=== PATIENT | female | born 1955 | race Caucasian/White ===

== ENCOUNTER 2021-02-12 09:05 | Outpatient (REF) | payer MEDICARE, SELFPAY ==
--- NOTE | ~2021-02-12 | MM_ITS ---
EXAMINATION: MM SCREENING DIGITAL BREAST TOMOSYNTHESIS, BILATERAL CLINICAL INFORMATION: Screening. Asymptomatic. Remote biopsy upper outer left breast 2009 ([facility]IS by report 04/22/2012). The lifetime risk of breast cancer based on the Tyrer-Cuzick Model is 40%. COMPARISON: Mammography: 09/05/2019, 03/16/2018, 02/18/2017 TECHNIQUE: Digital breast tomosynthesis is performed in both the craniocaudal and mediolateral oblique views along with computer-aided detection (CAD). Synthesized 2D images are generated from the tomosynthesis. FINDINGS: The breasts are heterogeneously dense, which may obscure small masses (ACR BI-RADS breast composition Category c). Parenchymal pattern is similar to prior exams. There is no interval mass or architectural abnormality. Oval nodule mid inferior right breast on MLO view is stable. There is biopsy clip marker again seen mid 12:00 right breast and 2 biopsy clip markers left breast anterior upper outer quadrant and anterior 3:00 position, respectively. The axilla and skin contours are unremarkable. There are some scattered benign round punctate calcifications. No significant changes. MM/MM tomosynthesis screening BI IMPRESSION: No significant changes from prior studies. ASSESSMENT: BI-RADS 2: Benign RECOMMENDATION: Routine annual mammography screening. This patient's information was entered into a reminder system with a target due date for their next mammogram.
== END 2021-02-12 09:06 | disposition home or self-care (01) ==
LOC: HO.MAMMO 09:05
PROVIDERS: Visit Provider Internal Medicine
DX: Z12.31 Encounter for screening mammogram for malignant neoplasm of breast (principal)
CPT/HCPCS: 77063; 77067

== ENCOUNTER 2021-02-15 14:42 | Outpatient (REF) | payer MEDICARE, SELFPAY | END 2021-02-15 14:43 | disposition home or self-care (01) | LOC: HO.LAB 14:42 | PROVIDERS: PCP Internal Medicine; Visit Provider Internal Medicine | DX: Z13.89 Encounter for screening for other disorder (principal) ==

== ENCOUNTER 2021-02-18 11:03 | Outpatient (REF) | payer MEDICARE, SELFPAY ==
[2021-02-18 14:25] LABS: Estimated Average Glucose 134 mg/dL; Hemoglobin A1c % 6.3 %
[2021-02-18 14:45] LABS: Creatinine Urine 139.21 mg/dL; Microalbum/Creatinine Ratio Ur 8.6 ug/mg cr
[2021-02-18 14:52] LABS: Alanine Aminotransferase 18 U/L (0-31); Albumin Level 4.2 g/dL (3.5-5.0); Alkaline Phosphatase 89 U/L (39-117); Anion Gap 11 (12-20); Aspartate Amino Transferase 15 U/L (5-31); Bilirubin Total 0.9 mg/dL (0.0-1.0); Blood Urea Nitrogen 13 mg/dL (9-16); Calcium 9.4 mg/dL (8.4-10.2); Carbon Dioxide 30 mmol/L (22-29); Chloride 106 mmol/L (96-108); Estimated Glomerular Filt Rate > 60; Glucose Random 159 mg/dL (60-115); Potassium 4.3 mmol/L (3.3-5.1); Sodium 143 mmol/L (135-145); Total Protein 6.5 g/dL (6.5-8.0)
[2021-02-19 07:56] LABS: LDL Cholesterol Direct 114 mg/dL (<100)
== END 2021-02-18 11:04 | disposition home or self-care (01) ==
LOC: HO.HMGCLDS 11:03
PROVIDERS: PCP Internal Medicine; Visit Provider Internal Medicine
DX: E11.9 Type 2 diabetes mellitus without complications (principal); E78.9 Disorder of lipoprotein metabolism, unspecified; K58.9 Irritable bowel syndrome, unspecified; G47.9 Sleep disorder, unspecified; F41.8 Other specified anxiety disorders; J45.909 Unspecified asthma, uncomplicated
CPT/HCPCS: 36415; 80053; 82043; 83036; 83721

== ENCOUNTER → 2021-03-21 09:02 | Outpatient (BNVA) | payer MEDICARE, SELFPAY | PROVIDERS: PCP Internal Medicine; Visit Provider Nurse Practitioner | DX: Z12.11 Encounter for screening for malignant neoplasm of colon (principal); K58.2 Mixed irritable bowel syndrome; R14.0 Abdominal distension (gaseous); K63.89 Other specified diseases of intestine | CPT/HCPCS: 99202 ==

== ENCOUNTER 2021-05-08 11:11 | Day surgery (SDC) | payer MEDICARE, SELFPAY ==
--- NOTE | 2021-05-07 10:16 | HO.ANESPROP2 ---
HPI - Anesthesia Eval Consult details Narrative: 66yo F for Colonoscopy PMFSH Active Problems Active Problems: All Active Problems (Updated 05/02/21 @ 13:22 by Renea Rushing) Diabetes mellitus type 2 in nonobese (Acute) Lipid disorder (Acute) Difficulty sleeping (Acute) Depression with anxiety (Acute) Asthma, mild (Acute) Colon cancer screening (Acute) Irritable bowel syndrome with both constipation and diarrhea (Acute) Abdominal bloating (Acute) Small intestinal bacterial overgrowth (Acute) Past Medical History Medical History (Updated 05/07/21 @ 10:17 by Dulce Penn) Anxiety and depression Asthma Breast calcifications Depression with anxiety IBS (irritable bowel syndrome) Insomnia Polycystic kidney disease Type II diabetes mellitus Family History Family History (Updated 03/21/21 @ 09:20 by Erica Greene) Father Liver cancer Heart problem Mother Lung cancer Brother Heart problem Diabetes Cardiovascular system problem Sister Diabetes Surgical History Surgical History (Updated 05/02/21 @ 13:22 by Renea Rushing) Hx of colonoscopy Social History Social History (Updated 03/21/21 @ 09:09 by Erica Greene) Household Members: Children Alcohol intake: current Alcohol intake frequency: a few times a month Patient Tobacco Use Status: Former Tobacco user Meds Allergies Allergy/AdvReac Type Severity Reaction Status Date / Time No Known Allergies Allergy Verified 05/02/21 13:29 Home Medications Medication Instructions Recorded Confirmed Last Taken Type dicyclomine 20 mg tablet 20 mg PO BID 02/15/21 05/02/21 Unknown History Exam Exam Date and Time: May 07, 2021 1016 Assessment and Plan Assessment Anesthesia Assessment: Chart Reviewed
[2021-05-08 11:24] VITALS: BMI 24.4
[2021-05-08 11:26] VITALS: BP 121/63; PULSE 82; RESP 18; TEMP 36.7; O2SAT 98
[2021-05-08 11:32] LABS: Glucose, Whole Blood 97 mg/dL (60-115)
--- NOTE | 2021-05-08 11:32 | MHC.SHP ---
Pre-Procedural Eval Section A Date of Service: 05/08/21 Section B Chief Complaint: screening Relevant Family History (Specify if Yes): No Relevant Social History: None Present Medications: see Short Stay Collaborative assessment Medical History: Significant History (Anxiety and depression Asthma Breast calcifications Depression with anxiety IBS (irritable bowel syndrome) Insomnia Polycystic kidney disease Type II diabetes mellitu) History of Previous Operations: Relevant previous surgery/procedure and date(s) (colonoscopy) Allergies: Allergies Allergy/AdvReac Type Severity Reaction Status Date / Time No Known Allergies Allergy Verified 05/02/21 13:29 Review of Systems Sugical H&P ROS: Negative: Constitution, Cardiovascular, Respiratory, Neurological, Psychiatric, Hem-Onc, Allergic/Immunologic, Gastrointestinal, Genitourinary, Musculoskeletal, Integumentary, Endocrine and Eyes/Ears/Nose/Throat Exam Surgical H&P Exam: Normal: HEENT, Normal: Heart, Normal: Lungs, Normal: Extremities, Normal: Abdomen, Normal: Skin and Normal: Neurological Plan Diagnosis/Plan: Unchanged I have reviewed the history and physical and performed a pertinent physical examination on my patient. No changes have occurred unless specified.
--- NOTE | 2021-05-08 11:47 | PC.NURSE ---
PATIENT STATES BODY ACHES. THIS RN TOLD ANESTHESIOLOGIST WHO STATED TO RUN FLUIDS WIDE OPEN.
[2021-05-08] MEDS: Lactated Ringers 1,000 ML 100 ML IVCONT (11:56)
--- NOTE | 2021-05-08 12:45 | P.BOP_ITS ---
Brief Operative Note Date of Service: 05/08/21 Pre-op diagnosis: colon screen Post-op diagnosis: same Procedure: see op note Surgeon: Stanislaw Aguilar MD Anesthesia: MAC Was an Manager Technical Training used for this Procedure?: No Estimated blood loss (mL): 0 Condition: stable Disposition: PACU
--- NOTE | 2021-05-08 12:46 | W.PM.OPN ---
Operative Note Operative Note Date of Service: 05/08/21 Narrative: Operative Information Procedure Description: Colonoscopy COLONOSCOPY Instrument: Olympus variable stiffness pediatric scope 190L Colonoscopy Monitoring: Vital signs and clinical assessment, continuous EKG monitoring, Pulse oximetry, Carbon Dioxide monitoring and blood pressure monitoring were done throughout the procedure. Colon withdrawal time was 13 minutes. Procedure: The patient was placed in the left lateral decubitis position and pre-procedure medications were administered. After a digital rectal examination of the ano-rectum, the video colonoscope was inserted into the rectum and advanced through the colon to the cecum/TI. The colonoscope was slowly withdrawn in a retrograde panoramic fashion and the colon mucosa was carefully examined including a retroflexed view of the rectum. Findings and interventions are described below. Procedure Difficulty: moderate, lots of looping, pressure applied Findings: Terminal Ileum-normal Cecum:normal Ascending Colon: 4-5 mm sessile polyp seen on retroflexion and removed with forceps Transverse Colon -normal Descending Colon:normal Sigmoid Colon: moderate severe diverticulosis with colon thickening Rectum: Retroflexion with small internal hemorrhoids, grade I Anorectum - normal Colon preparation: [place] Bowel Preparation Scale Right colon; 2 Transverse colon: 2 Left colon; 1 (0 = Unprepared colon segment with mucosa not seen due to solid stool that cannot be cleared. 1 = Portion of mucosa of the colon segment seen, but other areas of the colon segment not well seen due to staining, residual stool and/or opaque liquid. 2 = Minor amount of residual staining, small fragments of stool and/or opaque liquid, but mucosa of colon segment seen well. 3 = Entire mucosa of colon segment seen well with no residual staining, small fragments of stool or opaque liquid) Impression and Post Procedure Diagnosis: polyp internal hemorrhoids diverticular disease Plan: High fiber diet leaflet Avoid straining at stool, epsom salts and sitz bath, anusol supps or cream Repeat Colonoscopy in 1-2 years or earlier if clinically indicated review prep next time Above findings were reviewed with the patient and relevant handouts were provided if indicated.
[2021-05-08 12:51] VITALS: BP 111/61; PULSE 79; RESP 16; TEMP 36.2; O2SAT 99
[2021-05-08 13:06] VITALS: BP 117/57; PULSE 78; RESP 16; O2SAT 99
[2021-05-08] MEDS: Acetaminophen 325 MG TABLET 650 MG PO (13:23)
== END 2021-05-08 13:44 | disposition home or self-care (01) ==
PROVIDERS: PCP Internal Medicine; Visit Provider Internal Medicine Gastroenterology
PROC: 0DJD8ZZ Inspection of Lower Intestinal Tract, Via Natural or Artificial Opening Endoscopic (ICD-10-PCS; CPT 45378; principal; 2021-05-08 12:20)
DX: Z12.11 Encounter for screening for malignant neoplasm of colon (principal); D12.2 Benign neoplasm of ascending colon; K57.30 Diverticulosis of large intestine without perforation or abscess without bleeding; K64.0 First degree hemorrhoids; K58.2 Mixed irritable bowel syndrome; K63.89 Other specified diseases of intestine; K21.9 Gastro-esophageal reflux disease without esophagitis; J45.909 Unspecified asthma, uncomplicated; F32.9 Major depressive disorder, single episode, unspecified; E11.9 Type 2 diabetes mellitus without complications; Z79.899 Other long term (current) drug therapy; Z87.891 Personal history of nicotine dependence
CPT/HCPCS: 45380; 82947; 88305

== ENCOUNTER → 2021-06-03 09:55 | Outpatient (BNVA) | payer MEDICARE, SELFPAY | PROVIDERS: PCP Internal Medicine; Visit Provider Nurse Practitioner ==

== ENCOUNTER → 2021-06-04 15:15 | Outpatient (BNVA) | payer MEDICARE, SELFPAY | PROVIDERS: Visit Provider Nurse Practitioner Family | DX: Z13.89 Encounter for screening for other disorder (principal) | CPT/HCPCS: Q3014 ==

== ENCOUNTER → 2021-07-09 15:16 | Outpatient (BNVA) | payer MEDICARE, SELFPAY | PROVIDERS: PCP Internal Medicine; Visit Provider Nurse Practitioner Family | DX: K58.2 Mixed irritable bowel syndrome (principal); R14.0 Abdominal distension (gaseous); K21.9 Gastro-esophageal reflux disease without esophagitis; D12.6 Benign neoplasm of colon, unspecified; E11.9 Type 2 diabetes mellitus without complications; Z87.891 Personal history of nicotine dependence | CPT/HCPCS: 99212 ==

== ENCOUNTER → 2021-08-13 11:23 | Outpatient (BNVA) | payer MEDICARE, SELFPAY | PROVIDERS: PCP Internal Medicine; Visit Provider Nurse Practitioner Family | DX: Z13.89 Encounter for screening for other disorder (principal) | CPT/HCPCS: Q3014 ==

== ENCOUNTER 2021-10-15 10:04 | Outpatient (REF) | payer MEDICARE, SELFPAY ==
[2021-10-15 11:51] LABS: Estimated Average Glucose 140 mg/dL; Hemoglobin A1c % 6.5 %
[2021-10-15 12:25] LABS: Alanine Aminotransferase 22 U/L (0-31); Alkaline Phosphatase 81 U/L (39-117); Anion Gap 12 (12-20); Aspartate Amino Transferase 19 U/L (5-31); Bilirubin Total 1.1 mg/dL (0.0-1.0); Blood Urea Nitrogen 11 mg/dL (9-16); Calcium 9.3 mg/dL (8.4-10.2); Carbon Dioxide 29 mmol/L (22-29); Chloride 107 mmol/L (96-108); Estimated Glomerular Filt Rate > 60; Glucose Random 137 mg/dL (60-115); Potassium 4.4 mmol/L (3.3-5.1); Sodium 144 mmol/L (135-145); Total Protein 6.4 g/dL (6.5-8.0)
== END 2021-10-15 10:05 | disposition home or self-care (01) ==
LOC: HO.HMGCLDS 10:04
PROVIDERS: PCP Internal Medicine; Visit Provider Internal Medicine
DX: E11.9 Type 2 diabetes mellitus without complications (principal); E78.9 Disorder of lipoprotein metabolism, unspecified; G47.9 Sleep disorder, unspecified; J45.909 Unspecified asthma, uncomplicated
CPT/HCPCS: 36415; 80053; 83036

== ENCOUNTER 2021-10-18 13:16 | Outpatient (REF) | payer MEDICARE, SELFPAY ==
--- NOTE | ~2021-10-18 | XR_ITS ---
EXAMINATION: XR SACRUM AND COCCYX CLINICAL INFORMATION: Lower back injury. COMPARISON: None TECHNIQUE: 3 views submitted AP and lateral imaging. FINDINGS: There is no evidence for an acute fracture. Some mild sclerotic change in the left SI joint may be degenerative in nature. Some likely degeneration of the lower lumbosacral spine. There is no ankylosis. No acute bony erosion. XR/XR sacrum coccyx min 2V IMPRESSION: No acute finding. Some degenerative changes are noted.
== END 2021-10-18 13:17 | disposition home or self-care (01) ==
LOC: HO.HMGCX 13:16
PROVIDERS: PCP Internal Medicine; Visit Provider Internal Medicine
DX: S39.92XD Unspecified injury of lower back, subsequent encounter (principal); W19.XXXD Unspecified fall, subsequent encounter
CPT/HCPCS: 72220

== ENCOUNTER 2021-11-20 10:06 | Outpatient (REF) | payer MEDICARE, SELFPAY ==
[2021-11-20 12:02] LABS: TSH reflex Free T4 2.35 uIU/mL (0.32-4.0)
[2021-11-20 12:20] LABS: Appearance Urine CLOUDY; Color Urine YELLOW; Glucose Urine UA 100 MG/DL (NEG); Leukocyte Esterase Urine TRACE (NEG); Nitrite Urine NEG (NEG); UACC Culture Trigger YES; Urine Blood NEG (NEG); Urine Ketones NEG (NEG); Urine Protein NEG (NEG-TRACE)
[2021-11-20 12:22] LABS: Folate 14.7 ng/mL (> or = 4.0); Vitamin B12 623 pg/mL (200-900)
[2021-11-20 12:51] LABS: Amorphous Sediment Urine 2+ /LPF; RBC Urine 0 /HPF (0); Squamous Epithelial Cell Urine TRACE /LPF; WBC Urine 0-2 /HPF (0-4)
[2021-11-21 15:01] LABS: Transglutaminase Ab IgG <1.0 U/mL; Transglutaminase IgA <1.0 U/mL
[2021-11-25 16:06] LABS: Vitamin D 25-OH, D2 <4 ng/mL; Vitamin D 25-OH, D3 42 ng/mL; Vitamin D 25-OH, Total 42 ng/mL (30-100)
== END 2021-11-20 10:07 | disposition home or self-care (01) ==
LOC: HO.LAB 10:06
PROVIDERS: PCP Internal Medicine; Referring Provider Internal Medicine; Visit Provider Nurse Practitioner Family
DX: K58.0 Irritable bowel syndrome with diarrhea (principal); K58.1 Irritable bowel syndrome with constipation; E55.9 Vitamin D deficiency, unspecified; K59.04 Chronic idiopathic constipation; R10.11 Right upper quadrant pain; R14.0 Abdominal distension (gaseous); R30.0 Dysuria; Z79.899 Other long term (current) drug therapy; Z87.891 Personal history of nicotine dependence; Z12.11 Encounter for screening for malignant neoplasm of colon
CPT/HCPCS: 36415; 81001; 82306; 82607; 82746; 84443; 86364; 87086; 99212

== ENCOUNTER 2022-02-15 08:58 | Outpatient (REF) | payer MEDICARE, SELFPAY ==
--- NOTE | ~2022-02-15 | MM_ITS ---
EXAMINATION: MM SCREENING DIGITAL BREAST TOMOSYNTHESIS, BILATERAL CLINICAL INFORMATION: Remote history LCIS left breast. Due for yearly. Asymptomatic. TC score 39%. COMPARISON: Mammography: 02/12/2021, 09/05/2019, 03/16/2018 TECHNIQUE: Digital breast tomosynthesis is performed in both the craniocaudal and mediolateral oblique views along with computer-aided detection (CAD). Synthesized 2D images are generated from the tomosynthesis. FINDINGS: The breasts are heterogeneously dense, which may obscure small masses (ACR BI-RADS breast composition Category c). The left breast parenchymal pattern is similar to prior studies. There is no interval mass or architectural abnormality or abnormal calcifications. Again, there are biopsy clip markers anterior upper outer left breast and mid 3:00 left breast. The bilateral axilla and skin contours are unremarkable. The right breast has biopsy clip marker mid 11:00 position. There is a chronic stable smooth mass mid 6:00 right breast. There are calcifications overlying the posterior aspect of the mass, likely benign coarse, although not well characterized on the synthesized images. Patient will be recalled for additional imaging. The remainder of the right breast shows no interval mass or developing density or architectural abnormality. MM/MM tomosynthesis screening BI IMPRESSION: Right: -Calcifications overlying posterior aspect of an otherwise stable smooth mass mid 6:00 position. Left: -No mammographic evidence of malignancy. ASSESSMENT: BI-RADS 0: Incomplete - Need Additional Imaging Evaluation RECOMMENDATION: 1. Additional views of the right breast (magnification CC, magnification ML). 2. Targeted ultrasound if warranted after review of the additional views. 3. Radiology department staff will contact the patient for additional imaging. This patient's information was entered into a reminder system with a target due date for their next mammogram.
== END 2022-02-15 08:59 | disposition home or self-care (01) ==
LOC: HO.MAMMO 08:58
PROVIDERS: PCP Internal Medicine; Visit Provider Internal Medicine
DX: Z12.31 Encounter for screening mammogram for malignant neoplasm of breast (principal)
CPT/HCPCS: 77063; 77067

== ENCOUNTER 2022-03-04 14:00 | Outpatient (REF) | payer MEDICARE, SELFPAY ==
--- NOTE | ~2022-03-04 | MM_ITS ---
EXAMINATION: MM DIAGNOSTIC DIGITAL MAMMOGRAPHY, RIGHT CLINICAL INFORMATION: Recall from screening for calcifications overlying posterior aspect of chronic stable smooth mass mid 6:00 right breast. Prior history contralateral left breast LCIS. TC score 39%. COMPARISON: Mammography: 02/15/2022, 02/12/2021, 09/05/2019, 03/16/2018, 02/18/2017 TECHNIQUE: Digital mammography is performed in the following views: Magnification CC, magnification ML x2. FINDINGS: The breasts are heterogeneously dense, which may obscure small masses (ACR BI-RADS breast composition Category c). There is a chronic smooth nodule mid inferior right breast similar to prior studies. There are calcifications at the periphery posterior aspect, present on prior exams. The additional magnification views show the calcifications to appear coarser, suggesting degenerating fibroadenoma. No calcifications the on the nodule. Results are discussed with the patient at time of visit. MM/MM added views RT IMPRESSION: The calcifications overlying the otherwise stable smooth nodule inferior right breast appear coarser, suggesting benign degenerating fibroadenoma. ASSESSMENT: BI-RADS 3: Probably Benign RECOMMENDATION: 1. Diagnostic right mammography in 6 months. 2. The lifetime risk of breast cancer based on the Tyrer-Cuzick Model is 39%. Additional annual adjunct screening with breast MRI may be of benefit in women with a risk score of 20% or greater. This patient's information was entered into a reminder system with a target due date for their next mammogram.
== END 2022-03-04 14:01 | disposition home or self-care (01) ==
LOC: HO.MAMMO 14:00
PROVIDERS: PCP Internal Medicine; Visit Provider Internal Medicine
DX: R92.1 Mammographic calcification found on diagnostic imaging of breast (principal); N63.15 Unspecified lump in the right breast, overlapping quadrants
CPT/HCPCS: 77065

== ENCOUNTER → 2022-03-19 09:58 | Outpatient (BNVA) | payer MEDICARE, SELFPAY | PROVIDERS: PCP Internal Medicine; Referring Provider Internal Medicine; Visit Provider Nurse Practitioner Family | DX: K58.2 Mixed irritable bowel syndrome (principal); K59.04 Chronic idiopathic constipation; R14.0 Abdominal distension (gaseous) | CPT/HCPCS: 99212 ==

== ENCOUNTER 2022-04-09 14:37 | Outpatient (REF) | payer MEDICARE, SELFPAY ==
[2022-04-09 17:06] LABS: Alanine Aminotransferase 20 U/L (0-31); Alkaline Phosphatase 111 U/L (39-117); Anion Gap 13 (12-20); Aspartate Amino Transferase 17 U/L (5-31); Bilirubin Total 0.7 mg/dL (0.0-1.0); Blood Urea Nitrogen 17 mg/dL (9-16); Calcium 9.6 mg/dL (8.4-10.2); Carbon Dioxide 27 mmol/L (22-29); Chloride 104 mmol/L (96-108); Estimated Glomerular Filt Rate > 60; Glucose Random 159 mg/dL (60-115); Potassium 4.2 mmol/L (3.3-5.1); Sodium 140 mmol/L (135-145); Total Protein 6.6 g/dL (6.5-8.0)
[2022-04-09 17:07] LABS: Estimated Average Glucose 157 mg/dL; Hemoglobin A1c % 7.1 %
== END 2022-04-09 14:38 | disposition home or self-care (01) ==
LOC: HO.HMGCLDS 14:37
PROVIDERS: PCP Internal Medicine; Visit Provider Internal Medicine
DX: E78.9 Disorder of lipoprotein metabolism, unspecified (principal); F41.1 Generalized anxiety disorder; G47.9 Sleep disorder, unspecified; J45.20 Mild intermittent asthma, uncomplicated; E11.9 Type 2 diabetes mellitus without complications
CPT/HCPCS: 36415; 80053; 83036

== ENCOUNTER 2022-06-18 15:56 | Outpatient (REF) | payer MEDICARE, SELFPAY ==
[2022-06-19 02:54] LABS: CT PCR NOT DETECTED (Not Detect.); NG PCR NOT DETECTED (Not Detect.)
[2022-06-24 06:51] LABS: HPV mRNA E6/E7 rflx Not Detected (Not Detected)
== END 2022-06-18 15:57 | disposition home or self-care (01) ==
LOC: HO.LAB 15:56
PROVIDERS: Visit Provider Advanced Practice Midwife
DX: Z01.419 Encounter for gynecological examination (general) (routine) without abnormal findings (principal); Z11.51 Encounter for screening for human papillomavirus (HPV); Z20.2 Contact with and (suspected) exposure to infections with a predominantly sexual mode of transmission
CPT/HCPCS: 87491; 87591; 87624; 88142

== ENCOUNTER → 2022-08-12 09:20 | Outpatient (BNVA) | payer MEDICARE, SELFPAY | PROVIDERS: PCP Internal Medicine; Visit Provider Advanced Practice Midwife | DX: L29.2 Pruritus vulvae (principal) | CPT/HCPCS: 99212 ==

== ENCOUNTER 2022-08-13 13:05 | Outpatient (REF) | payer MEDICARE, SELFPAY ==
[2022-08-13 14:16] LABS: MANUAL DIFF FLAG NO
[2022-08-13 14:24] LABS: Basophils Percent Auto 0.2 % (0-2); Eosinophils Absolute Auto 0.1 X10*3/uL (0.0-0.4); Eosinophils Percent Auto 1.1 % (0-4); Hematocrit 40.7 % (37.0-47.0); Hemoglobin 13.6 g/dl (12.0-16.0); Imm Gran Abs Auto 0.02 X10*3/uL (0.00-0.03); Imm Gran Pct Auto 0.4 % (0.0-0.4); Lymphocytes Absolute Auto 1.3 X10*3/uL (1.2-4.9); Lymphocytes Percent Auto 27.5 % (20-40); Mean Corpuscular HGB Conc 33.4 g/dl (31.0-35.0); Mean Corpuscular Hemoglobin 30.1 pg (27.0-33.0); Monocytes Absolute Auto 0.4 X10*3/uL (0.1-1.2); Neutrophils Absolute Auto 2.9 x10*3/uL (2.0-8.3); Neutrophils Percent Auto 61.8 % (45-73); Platelet Count 187 X10*3/uL (160-400); Red Blood Count 4.52 X10*6/uL (4.20-5.50); Red Cell Distribution Width 12.5 % (11.0-16.0); White Blood Count 4.7 X10*3/uL (4.8-10.8)
[2022-08-13 14:32] LABS: Estimated Average Glucose 140 mg/dL; Hemoglobin A1c % 6.5 %
[2022-08-13 14:49] LABS: Alanine Aminotransferase 15 U/L (0-31); Albumin Level 4.2 g/dL (3.5-5.0); Alkaline Phosphatase 83 U/L (39-117); Anion Gap 10 (12-20); Aspartate Amino Transferase 17 U/L (5-31); Bilirubin Total 1.3 mg/dL (0.0-1.0); Blood Urea Nitrogen 14 mg/dL (9-16); Calcium 9.2 mg/dL (8.4-10.2); Carbon Dioxide 29 mmol/L (22-29); Chloride 106 mmol/L (96-108); Estimated Glomerular Filt Rate > 60; Glucose Random 135 mg/dL (60-115); Potassium 4.3 mmol/L (3.3-5.1); Sodium 141 mmol/L (135-145); Total Protein 6.4 g/dL (6.5-8.0)
[2022-08-13 15:10] LABS: TSH reflex Free T4 1.29 uIU/mL (0.32-4.0)
[2022-08-13 15:14] LABS: Vitamin B12 583 pg/mL (200-900)
[2022-08-14 13:51] LABS: LDL Cholesterol Direct 108 mg/dL (<100)
== END 2022-08-13 13:06 | disposition home or self-care (01) ==
LOC: HO.HMGCLDS 13:05
PROVIDERS: PCP Internal Medicine; Visit Provider Internal Medicine
DX: E11.9 Type 2 diabetes mellitus without complications (principal); E78.9 Disorder of lipoprotein metabolism, unspecified; F33.0 Major depressive disorder, recurrent, mild; F41.1 Generalized anxiety disorder; G47.9 Sleep disorder, unspecified; J45.40 Moderate persistent asthma, uncomplicated; R29.6 Repeated falls
CPT/HCPCS: 36415; 80053; 82607; 83036; 83721; 84443; 85025

== ENCOUNTER 2022-09-05 13:03 | Outpatient (REF) | payer MEDICARE, SELFPAY ==
--- NOTE | ~2022-09-05 | MM_ITS ---
EXAMINATION: MM DIAGNOSTIC DIGITAL BREAST TOMOSYNTHESIS CLINICAL INFORMATION: Six-month follow-up calcifications The lifetime risk of breast cancer based on the Tyrer-Cuzick Model is 48.7%. Additional annual screening with breast MRI may be of benefit in women with a score of 20% or greater. COMPARISON: Mammography: 03/04/2022 and studies dating back to 04/22/2012. TECHNIQUE: Digital breast tomosynthesis is performed in both the craniocaudal and mediolateral oblique views along with computer-aided detection (CAD). Synthesized 2D images are generated from the tomosynthesis. Spot magnification views of the right breast in craniocaudal and 90 degree mediolateral views also performed. FINDINGS: The breasts are extremely dense, which lowers the sensitivity of mammography (ACR BI-RADS breast composition Category d). Grouping of calcifications about the inferior lateral aspect of the right breast are again seen. There is still multiple fine calcifications present without coalescing into a more amorphous collection. Continue to recommend 6 month follow up right breast mammogram with magnification views at that time. Results are provided to the patient at time of visit by the technologist. MM/MM tomosynthesis diagnostic RT IMPRESSION: No significant change from study of 03/04/2022. Recommend diagnostic bilateral study in 6 months including spot magnification views of the right breast for calcifications. ASSESSMENT: BI-RADS 3: Probably Benign. RECOMMENDATION: Diagnostic mammography in 6 months. This patient's information was entered into a reminder system with a target due date for their next mammogram.
== END 2022-09-05 13:04 | disposition home or self-care (01) ==
LOC: HO.MAMMO 13:03
PROVIDERS: PCP Internal Medicine; Visit Provider Internal Medicine
DX: R92.1 Mammographic calcification found on diagnostic imaging of breast (principal)
CPT/HCPCS: 77061; 77065

== ENCOUNTER → 2022-12-24 13:33 | Outpatient (BNVA) | payer MEDICARE, SELFPAY | PROVIDERS: PCP Internal Medicine; Visit Provider Nurse Practitioner Family | DX: R29.6 Repeated falls (principal); M54.2 Cervicalgia; M54.50 Low back pain, unspecified; G25.81 Restless legs syndrome | CPT/HCPCS: 99202 ==

== ENCOUNTER 2023-01-23 12:53 | Outpatient (REF) | payer MEDICARE, SELFPAY ==
--- NOTE | ~2023-01-23 | MR_ITS ---
EXAMINATION: MR BRAIN WITHOUT CONTRAST MR CERVICAL SPINE WITHOUT CONTRAST CLINICAL INDICATION Repeated falls and neck pain. COMPARISON: There are no prior studies available for comparison. TECHNIQUE: MRI scans of the brain and cervical spine were obtained using routine sequences without contrast. FINDINGS: MRI Brain: No diffusion abnormalities are identified to suggest an acute or subacute infarct. No mass effect or midline shift is seen. The ventricles and sulci are slightly commensurately prominent consistent with diffuse volume loss. There is a moderate cavum velum interpositum. There are a few scattered foci of hyperintense T2 and FLAIR signal in the periventricular and subcortical white matter, which are most consistent with mild chronic microvascular ischemic changes. No extra-axial fluid collections are seen. The brainstem and cerebellum are normal. No pathologic magnetic susceptibility artifact is identified on the gradient refocused acquisition. The craniovertebral junction and marrow signal are normal. There is a partially empty sella. The major intracranial flow-voids at the level of the [place] are preserved. The dural venous sinus flow-voids are maintained. The mastoid air cells are well-aerated. There is mild mucoperiosteal thickening in the ethmoid sinuses. MRI Cervical Spine: VERTEBRAL BODIES AND PARASPINAL SOFT TISSUES: There is mild straightening of the cervical lordosis. There is narrowing of intervertebral disc height with loss of signal at multiple levels, most severe at C5-C6. The vertebral bodies have normal height and contour, and no fractures are demonstrated. Overall, marrow signal is homogenous. The regional soft tissues are unremarkable. CERVICOMEDULLARY JUNCTION AND VISUALIZED POSTERIOR FOSSA: There is a partially empty sella. The craniocervical and posterior fossa structures are normal. Accounting for artifact, spinal cord signal appears normal. SPINAL LEVELS: C2-C3: The facet joints appear normal bilaterally. Posterior disc contour is normal. There is no spinal cord compression or central stenosis. The neural foramina are patent bilaterally. C3-C4: The facet joints appear normal. There is a shallow posterior soft disc protrusion with minimal distortion of the ventral thecal sac. There is no cord compression or central stenosis. There is a small right uncovertebral osteophyte with mild right foraminal narrowing. C4-C5: The facet joints appear normal. There is a shallow posterior disc protrusion without cord compression or central stenosis. The neural foramina are patent bilaterally. C5-C6: The facet joints appear normal. There is a central and left-sided disc protrusion which mildly distorts the ventral thecal sac on the left, but there is no cord compression or central stenosis. There is a prominent left-sided uncovertebral osteophyte, and there is moderate to severe left foraminal narrowing. C6-C7: The facet joints appear normal bilaterally. Posterior disc contour is normal. There is no spinal cord compression or central stenosis. The neural foramina are patent bilaterally. C7-T1: The facet joints appear normal bilaterally. Posterior disc contour is normal. There is no spinal cord compression or central stenosis. The neural foramina are patent bilaterally. MR/MR cervical spine wo con IMPRESSION: MRI brain: 1. There are no acute bleeds or territorial infarcts. No masses are demonstrated. 2. There are chronic microvascular ischemic changes and there is diffuse volume loss. MRI cervical spine: 1. At C5-C6 there is a central and left-sided disc protrusion and there is a left-sided uncovertebral osteophyte. There is moderate to severe left foraminal narrowing. 2. At C3-C4 there is a shallow posterior disc protrusion without cord compression or central stenosis. There is mild right foraminal narrowing. 3. There is no spinal cord compression or central stenosis. Spinal cord signal appears normal.
== END 2023-01-23 12:54 | disposition home or self-care (01) ==
LOC: HO.MRI 12:53
PROVIDERS: PCP Internal Medicine; Visit Provider Nurse Practitioner Family
DX: M54.2 Cervicalgia (principal); M54.50 Low back pain, unspecified; R29.6 Repeated falls
CPT/HCPCS: 70551; 72141

== ENCOUNTER 2023-02-25 10:38 | Outpatient (REF) | payer MEDICARE, SELFPAY ==
[2023-02-25 11:49] LABS: Estimated Average Glucose 137 mg/dL; Hemoglobin A1c % 6.4 %
[2023-02-25 12:19] LABS: Creatinine Urine 185.33 mg/dL; Microalbum/Creatinine Ratio Ur 8.6 ug/mg cr
[2023-02-25 12:25] LABS: Alanine Aminotransferase 14 U/L (0-31); Albumin Level 4.1 g/dL (3.5-5.0); Alkaline Phosphatase 75 U/L (39-117); Anion Gap 12 (12-20); Aspartate Amino Transferase 14 U/L (5-31); Bilirubin Total 1.4 mg/dL (0.0-1.0); Blood Urea Nitrogen 18 mg/dL (9-16); Calcium 9.3 mg/dL (8.4-10.2); Carbon Dioxide 28 mmol/L (22-29); Chloride 107 mmol/L (96-108); Estimated Glomerular Filt Rate 55; Glucose Random 158 mg/dL (60-115); Potassium 5.1 mmol/L (3.3-5.1); Sodium 142 mmol/L (135-145)
== END 2023-02-25 10:39 | disposition home or self-care (01) ==
LOC: HO.HMGCLDS 10:38
PROVIDERS: PCP Internal Medicine; Visit Provider Internal Medicine
DX: E11.9 Type 2 diabetes mellitus without complications (principal); E78.9 Disorder of lipoprotein metabolism, unspecified; F33.0 Major depressive disorder, recurrent, mild; F41.1 Generalized anxiety disorder; G47.9 Sleep disorder, unspecified; J45.40 Moderate persistent asthma, uncomplicated; R82.90 Unspecified abnormal findings in urine
CPT/HCPCS: 36415; 80053; 82043; 83036

== ENCOUNTER 2023-03-05 13:30 | Outpatient (REF) | payer MEDICARE, SELFPAY ==
--- NOTE | ~2023-03-05 | MM_ITS ---
EXAMINATION: MM DIAGNOSTIC DIGITAL BREAST TOMOSYNTHESIS, BILATERAL CLINICAL INFORMATION: Due for yearly. Also follow-up probable benign calcifications posterior aspect chronic smooth nodule mid 6:00 right breast. TC score. Prior history remote upper outer left breast biopsy 2009 ([facility]IS by report 2011). COMPARISON: Mammography: 09/05/2022, 03/04/2022, 02/15/2022 (BI-RADS 0), 02/12/2021, 09/05/2019 TECHNIQUE: Digital breast tomosynthesis is performed in both the craniocaudal and mediolateral oblique views along with computer-aided detection (CAD). Synthesized 2D images are generated from the tomosynthesis. Additional magnification views are obtained: Right CC, right MLO, left CC, left ML x2. FINDINGS: The breasts are heterogeneously dense, which may obscure small masses (ACR BI-RADS breast composition Category c). There is no significant mass and no developing density or interval architectural abnormality. Old biopsy clip marker again noted mid 12:00 right breast and 2 biopsy clip markers upper outer and central outer left breast. The axilla and skin contours are unremarkable. There is chronic smooth oval mass mid 6:00 right breast. The overlying calcifications posterior aspect of the mass appears similar to prior diagnostic exam and will be reassessed again in 6 months. The left breast has subtle new calcifications mid outer breast. There are some lucent centered types on the CC magnification view suggesting probable benign calcification. They will be reassessed again in 6 months. Other scattered punctate calcifications left breast are similar to prior exams. Results are discussed with the patient at time of visit. MM/MM tomosynthesis diagnostic BI IMPRESSION: Right: No significant changes right breast calcifications for 1 year follow-up. Left: Probable benign calcifications mid outer breast, new finding. ASSESSMENT: BI-RADS 3: Probably Benign RECOMMENDATION: -Bilateral diagnostic mammography in 6 months to include bilateral magnification views. -Consider additional adjunct screening with breast MRI as clinical risk factors warrant. This patient's information was entered into a reminder system with a target due date for their next mammogram.
== END 2023-03-05 13:31 | disposition home or self-care (01) ==
LOC: HO.MAMMO 13:30
PROVIDERS: PCP Internal Medicine; Visit Provider Internal Medicine
DX: R92.1 Mammographic calcification found on diagnostic imaging of breast (principal)
CPT/HCPCS: 77062; 77066

== ENCOUNTER → 2023-03-18 10:24 | Outpatient (BNVA) | payer MEDICARE, SELFPAY | PROVIDERS: PCP Internal Medicine; Visit Provider Nurse Practitioner Family | DX: Z12.11 Encounter for screening for malignant neoplasm of colon (principal); K58.1 Irritable bowel syndrome with constipation; K59.04 Chronic idiopathic constipation; D36.9 Benign neoplasm, unspecified site | CPT/HCPCS: 99212 ==

== ENCOUNTER → 2023-03-26 13:06 | Outpatient (BNVA) | payer MEDICARE, SELFPAY | PROVIDERS: PCP Internal Medicine; Visit Provider Nurse Practitioner Family | DX: R25.1 Tremor, unspecified (principal); R26.9 Unspecified abnormalities of gait and mobility; G25.81 Restless legs syndrome | CPT/HCPCS: 99212 ==

== ENCOUNTER 2023-04-20 13:00 | Outpatient (RCR) | payer MEDICARE, SELFPAY ==
--- NOTE | 2023-04-01 15:00 | MHC.PT.EP ---
[facility] [place] Office [place] Office [place] Office [address] [place] [address] [phone] F: [phone] F: [phone] F: [phone] F: [phone] Physical Therapy Plan of Care Date of Evaluation: Date of Surgery: Diagnosis: This is a 67 yo female presenting to skilled PT with a script for repeated falls. Assessment: This is a 67 yo female presenting to skilled PT with a script for repeated falls. Patient reporting that she tends to tip over which has been ongoing for a few years go. She also reports being light-headed and feeling off on occasion. She reports her most recent fall was last week when she was checking on some of her gardening beds and she fell forward. This year she accounts for 3-4 falls which are all random and do not have patterns. She does however report catching her feet occasionally and in general has LB weakness. Denies fractures or aches and pain that is significant (does have low back pain that she does not believe is related to her falls). Assessment reveals pain that ranges about a 4/10 in her back. Patient demos decreased lumbar ROM, strength of B LE, core and back. She is a falls risk per screening of Sima and DGI tests. She had some dizziness with rolling on the mat and will be screened for vestibular involvement next session. Based on functional limitations, impaired QOL and pain tolerance patient is a good candidate for skilled PT 2x/wk for 4wks. Plan is to do an HEP for LB strengthening along with a screen on vertigo next session and then a balance HEP the next session (due to co-pay). Frequency and Duration: The patient will be seen 2x/wk for 4wks Short Term Goals: I in HEP in 4wks Understand safety with transfers, squatting and lifting and stairs in 4wks Senior Living Goals: NA Treatment Plan: Modalities to reduce pain, spasms and effusion. Manual therapy to restore motion and function. Therapeutic exercise to improve strength and flexibility. Neuromuscular re-education for posture and balance. Therapeutic activities to return to functional activities of daily living. Electronically signed by: Latonia Rivera PT Please sign and return to therapist. Thank you for your referral.
--- NOTE | 2023-05-22 09:54 | MHC.PT.DC ---
[facility] [place] Office [place] Office [place] Office [address] [place] Mcintosh [address] [phone] F: [phone] F: [phone] F: [phone] F: [phone] Physical Therapy Discharge Report Diagnosis: This is a 67 yo female presenting to skilled PT with a script for repeated falls. Date of Surgery: Date of Evaluation: 04/01/23 Date of Discharge: 05/22/23 Treatments to Date: 3 Cancellations to Date: 0 No Shows to Date: 0 Discharge Status: Achieved Goals Improved Function Independent with HEP Patient Elected to Stop Discharge Summary: Reviewed HEP, educated on endurance activities like the recumbent bike. Added some standing ther-ex for balance and strength, needs mod/max cues for proper activation of hip abductor muscles. Educated on length of time in order to grow muscle and improve strength. She will work on her HEP on her own and I will keep her chart open for 30 days. DC'd to HEP Electronically signed by: Latonia Rivera, PT Please sign and return to therapist. Thank you for your referral.
== END 2023-05-22 09:54 | disposition home or self-care (01) ==
LOC: HO.PTCHIC 13:00
PROVIDERS: PCP Internal Medicine; Visit Provider Nurse Practitioner Family
DX: R29.6 Repeated falls (principal); R53.1 Weakness
CPT/HCPCS: 97110; 97112; 97162

== ENCOUNTER 2023-04-23 11:36 | Day surgery (SDC) | payer MEDICARE, SELFPAY ==
--- NOTE | 2023-04-22 10:43 | P.CONAN_ITS ---
Documented by User: Dulce Penn NP 04/22/23 10:46 HPI - Anesthesia Eval Consult details Narrative: 68yo F for Colonoscopy Seen by neuro recently for occassional falls/off balance. No acute findings on MRI. Neuro recommends optimal BP control, electrolyte drinks in the AM, PT for gait. PMF Active Problems Active Problems: All Active Problems (Updated 03/26/23 @ 21:32 by GISELLE Spaulding) Tremor (Acute) Restless leg syndrome (Acute) Lumbago (Acute) Cervicalgia (Acute) Depression, major, recurrent, mild (Acute) Skin cancer screening (Acute) Recurrent falls (Acute) Pruritus of vulva (Acute) Encounter for routine gynecological examination (Acute) Injury of coccyx (Acute) Fall (Acute) Asthma, moderate persistent (Acute) Anxiety, generalized (Acute) Diet-controlled diabetes mellitus (Acute) Tubular adenoma (Acute) Diabetes mellitus type 2 in nonobese (Acute) Lipid disorder (Acute) Difficulty sleeping (Acute) Asthma, mild (Acute) Colon cancer screening (Acute) Irritable bowel syndrome with both constipation and diarrhea (Acute) Abdominal bloating (Acute) Small intestinal bacterial overgrowth (Acute) Past Medical History Medical History Anxiety and depression Asthma Breast calcifications Depression with anxiety IBS (irritable bowel syndrome) Insomnia Polycystic kidney disease Tubular adenoma Type II diabetes mellitus Family History Family History Father Liver cancer Heart problem Mother Lung cancer Brother Heart problem Diabetes Cardiovascular system problem Substance use disorder Mental health disorder Sister Diabetes Substance use disorder Brother Substance use disorder Surgical History Surgical History Hx of colonoscopy Hx of colonoscopy Social History Social History (Updated 03/26/23 @ 13:14 by Anitra Anna CMA) Household Members: Children Housing: Apartment Alcohol intake: current Alcohol intake frequency: a few times a month Patient Tobacco Use Status: Former Tobacco user Years Smoked: 15 yrs e-Cigarette/Vaping Use: Never Used Second Hand Smoke Exposure: No Advance Directives: No Advance Directives Information Provided: Yes service: No Current occupational status: retired Sexual orientation: Straight/Heterosexual Gender identity: Female Cognitive needs: No Hearing needs: No Vision needs: Yes Meds Allergies Allergy/AdvReac Type Severity Reaction Status Date / Time No Known Allergies Allergy Verified 03/26/23 13:12 Home Medications Medication Instructions Recorded Confirmed Last Taken Type ibuprofen 200 mg tablet 200 mg PO Q6H PRN 03/26/23 03/26/23 Unknown History Exam Exam Date and Time: April 22, 2023 1043 Pertinent Lab Results Pertinent Lab Results: Laboratory Tests 08/13/22 02/25/23 13:10 10:50 WBC 4.7 L Hgb 13.6 Hct 40.7 Plt Count 187 Sodium 142 Potassium 5.1 Chloride 107 Carbon Dioxide 28 BUN 18 H Creatinine 1.00 Assessment and Plan Assessment Anesthesia Assessment: Chart Reviewed Documented by User: Neo Carias MD 04/23/23 13:02 [facility] Past Medical History Medical History Anxiety and depression Asthma Breast calcifications Depression with anxiety IBS (irritable bowel syndrome) Insomnia Polycystic kidney disease Tubular adenoma Type II diabetes mellitus Family History Family History Father Liver cancer Heart problem Mother Lung cancer Brother Heart problem Diabetes Cardiovascular system problem Substance use disorder Mental health disorder Sister Diabetes Substance use disorder Brother Substance use disorder Family history of problems with anesthesia: No Surgical History Surgical History Hx of colonoscopy Hx of colonoscopy History of Problems with Anesthesia: No Social History Social History (Updated 03/26/23 @ 13:14 by Anitra Anna CMA) Household Members: Children Housing: Apartment Alcohol intake: current Alcohol intake frequency: a few times a month Patient Tobacco Use Status: Former Tobacco user Years Smoked: 15 yrs e-Cigarette/Vaping Use: Never Used Second Hand Smoke Exposure: No Advance Directives: No Advance Directives Information Provided: Yes service: No Current occupational status: retired Sexual orientation: Straight/Heterosexual Gender identity: Female Cognitive needs: No Hearing needs: No Vision needs: Yes Meds Allergies Allergy/AdvReac Type Severity Reaction Status Date / Time No Known Allergies Allergy Verified 03/26/23 13:12 Home Medications Medication Instructions Recorded Confirmed Last Taken Type ibuprofen 200 mg tablet 200 mg PO Q6H PRN 03/26/23 03/26/23 Unknown History Exam Airway Mallampati Class: II TM Dist: >3cm Neck ROM: Full Loose/Missing/Broken Teeth: No Assessment and Plan Assessment Anesthesia Assessment: Anesthesia Plan Discussed Final Anesthetic Review Family History of Problems with Anesthesia: No History of Problems with Anesthesia: No NPO: Yes ASA Class: III Final Preanesthetic Review: No Changes in Pt Med Stat, Meds/Allgs Chart Reviewed, Consent Obtained/Reviewed and Anes Risks/Benef Reviewed Patient Risk: Intermediate Procedure Risk: Low Anesthetic Plan Anesthetic Plan: MAC: Disposition: Standard PACU
--- NOTE | 2023-04-23 11:52 | P.HPSUR_ITS ---
Pre-Procedural Eval Section A Date of Service: 04/23/23 Section B Chief Complaint: constipation Relevant Family History (Specify if Yes): No Relevant Social History: None Present Medications: see Short Stay Collaborative assessment Medical History: Significant History (Anxiety and depression Asthma Breast calcifications Depression with anxiety IBS (irritable bowel syndrome) Insomnia Polycystic kidney disease Tubular adenoma Type II diabetes mellitus) History of Previous Operations: Relevant previous surgery/procedure and date(s) (Hx of colonoscopy) Allergies: Allergies Allergy/AdvReac Type Severity Reaction Status Date / Time No Known Allergies Allergy Verified 03/26/23 13:12 Review of Systems Sugical H&P ROS: Negative: Constitution, Cardiovascular, Respiratory, Neurological, Psychiatric, Hem-Onc, Allergic/Immunologic, Gastrointestinal, Genitourinary, Musculoskeletal, Integumentary, Endocrine and Eyes/Ears/Nose/Throat Exam Surgical H&P Exam: Normal: HEENT, Normal: Heart, Normal: Lungs, Normal: E xtremities, Normal: Abdomen, Normal: Skin and Normal: Neurological Plan Diagnosis/Plan: Unchanged I have reviewed the history and physical and performed a pertinent physical examination on my patient. No changes have occurred unless specified. Time Spent With Patient Time: Total time managing care of this patient today ____ minutes.
[2023-04-23 12:30] LABS: Glucose, Whole Blood 123 mg/dL (60-115)
[2023-04-23] MEDS: Lactated Ringers 1,000 ML 100 ML IVCONT (12:33)
[2023-04-23] MEDS: Sodium Phosphate,Mono-Dibasic 133 ML ENEMA PR (12:33)
[2023-04-23 13:06] VITALS: BMI 24.5
[2023-04-23 13:07] VITALS: BP 119/50; PULSE 66; RESP 18; TEMP 36.6; O2SAT 98
--- NOTE | 2023-04-23 13:49 | P.OP_ITS ---
Operative Note Operative Note Date of Service: 04/23/23 Narrative: Operative Information Procedure Description: Colonoscopy Indication: screening Anesthesia: MAC COLONOSCOPY Instrument: Olympus variable stiffness pediatric scope 190L Colonoscopy Monitoring: Vital signs and clinical assessment, continuous EKG monitoring, Pulse oximetry, Carbon Dioxide monitoring and blood pressure monitoring were done throughout the procedure. Colon withdrawal time was 4 minutes. Procedure: The patient was placed in the left lateral decubitis position and pre-procedure medications were administered. After a digital rectal examination of the ano-rectum, the video colonoscope was inserted into the rectum and advanced through the colon to the cecum/TI. The colonoscope was slowly withdrawn in a retrograde panoramic fashion and the colon mucosa was carefully examined including a retroflexed view of the rectum. Findings and interventions are described below. Procedure Difficulty: difficutl due to prep and tortuous colon Findings: Terminal Ileum-not seen Cecum:normal Ascending Colon: normal Transverse Colon -normal Descending Colon:normal Sigmoid Colon: normal Rectum: Retroflexion with small internal hemorrhoids, grade I Anorectum - normal Colon preparation: [place] Bowel Preparation Scale Right colon; 1 Transverse colon: 1 Left colon; 0-1 (0 = Unprepared colon segment with mucosa not seen due to solid stool that cannot be cleared. 1 = Portion of mucosa of the colon segment seen, but other areas of the colon segment not well seen due to staining, residual stool and/or opaque liquid. 2 = Minor amount of residual staining, small fragments of stool and/or opaque liquid, but mucosa of colon segment seen well. 3 = Entire mucosa of colon segment seen well with no residual staining, small fragments of stool or opaque liquid) Impression and Post Procedure Diagnosis: poor prep internal hemorrhoids Plan: High fiber diet leaflet Avoid straining at stool, epsom salts and sitz bath, anusol supps or cream Repeat Colonoscopy in 3-6 months or earlier if clinically indicated, consider longer prep or 2 d clears if able Above findings were reviewed with the patient and relevant handouts were provided if indicated.
[2023-04-23 14:00] VITALS: BP 124/49; PULSE 88; RESP 16; TEMP 36.1; O2SAT 97
[2023-04-23 14:15] VITALS: BP 115/69; PULSE 82; RESP 16; O2SAT 96
== END 2023-04-23 14:49 | disposition home or self-care (01) ==
PROVIDERS: PCP Internal Medicine; Visit Provider Internal Medicine Gastroenterology
PROC: 0DJD8ZZ Inspection of Lower Intestinal Tract, Via Natural or Artificial Opening Endoscopic (ICD-10-PCS; CPT 45378; principal; 2023-04-23 13:20)
DX: Z12.11 Encounter for screening for malignant neoplasm of colon (principal); Z86.010 Personal history of colon polyps; K64.0 First degree hemorrhoids; K58.1 Irritable bowel syndrome with constipation; K59.04 Chronic idiopathic constipation; Q43.8 Other specified congenital malformations of intestine; J45.909 Unspecified asthma, uncomplicated; G47.00 Insomnia, unspecified; F41.8 Other specified anxiety disorders; Q61.3 Polycystic kidney, unspecified; E11.9 Type 2 diabetes mellitus without complications; Z79.899 Other long term (current) drug therapy; Z87.891 Personal history of nicotine dependence
CPT/HCPCS: G0105; 82947

== ENCOUNTER 2023-05-06 14:41 | Outpatient (AMB) | payer MEDICARE, SELFPAY ==
[2023-05-06 14:56] VITALS: BP 102/50; PULSE 67; BMI 25.0
--- NOTE | 2023-05-06 14:56 | A.OFFVIS_ITS ---
Intake Vital Signs 05/06/23 14:56 Height 5 ft Weight 127 lb 13.89 oz BMI 25.0 BP 102/50 L Blood Pressure Location Lt brachial Position Sitting Pulse 67 Intake Visit Reasons: S/P [place]; Dr. Aguilar Intake Note: Ginger presents in office as a est.patient for a post-op for colo pt got it done 04.23.23 PT CC:pt reports having side effects from the prep pt denies any other GI Issues Allergies No Known Allergies Allergy (Verified 05/06/23 14:55) HPI S/P [place]; Dr. Aguilar HPI Details LAST VISIT Colon cancer screening Discussed with patient how to do the prep. Patient currently is moving her bowels better. We will increase her dose of Linzess to 290 mcg daily. Patient verbalizes what to expect the for during and after the procedure. Good bowel prep as well as clear liquid diet discussed with patient. Patient has no cardiac or respiratory symptoms. Not on any anticoagulation medication. May proceed with the procedure. Tubular adenoma Diagnosed with tubular adenoma in 2020. Patient had suboptimal prep will need to repeat colonoscopy this year. Will schedule appointment today as soon as schedule permits IBS (irritable bowel syndrome) Symptoms of IBS with constipation. Discussed with patient the importance of drinking fluids. Patient will also start taking 290 mcg of Linzess. Continue low FODMAP diet Chronic idiopathic constipation History of chronic constipation. Will increase patient's Linzess. Patient will call us if this will be too much then she can go back to 145 mcg. Patient was also encouraged to drink fluids and increased activity to promote better bowel motility. I will see patient after the procedure, sooner on as needed basis. Patient is agreeable to this plan and verbalizes understanding of instructions. She was given the opportunity to ask questions and all questions answered. ? Thank you for allowing me to participate in her care Plan Medications New bisacodyl (Dulcolax (bisacodyl)) take 2 tabs at noon the day before your colonoscopy 10 mg (2 x 5 mg) PO ONCE 1 day 2 tabs 0RF Z12.11 polyethylene glycol 3350 (Miralax) As directed by gastroenterology department at [facility] 238 grams PO ONCE 238 grams 0RF Z12.11 linaclotide (Linzess) 290 mcg PO QAM 30 caps 4RF K59.00 Discontinued linaclotide (Linzess) Discontinued Reason: Doctor's Order 145 mcg PO DAILY 90 caps 3RF COLONOSCOPY: Findings: Terminal Ileum-not seen Cecum:normal Ascending Colon: normal Transverse Colon -normal Descending Colon:normal Sigmoid Colon:? normal Rectum: Retroflexion with small internal hemorrhoids, grade I Anorectum - normal Colon preparation: [place] Bowel Preparation Scale Right colon; 1 Transverse colon: 1 Left colon; 0-1 (0 = Unprepared colon segment with mucosa not seen due to solid stool that cannot be cleared. 1 = Portion of mucosa of the colon segment seen, but other areas of the colon segment not well seen due to staining, residual stool and/or opaque liquid. 2 = Minor amount of residual staining, small fragments of stool and/or opaque liquid, but mucosa of colon segment seen well. 3 = Entire mucosa of colon segment seen well with no residual staining, small fragments of stool or opaque liquid) Impression and Post Procedure Diagnosis: poor prep internal hemorrhoids Plan: High fiber diet leaflet Avoid straining at stool, epsom salts and sitz bath, anusol supps or cream Repeat Colonoscopy in 3-6 months or earlier if clinically indicated, consider longer prep or 2 d clears if able TODAY'S VISIT: Patient is here today for follow-up and to discuss colonoscopy results. Unfortunately patient had suboptimal prep and will need to repeat colonoscopy in 3-6 months. Patient is taking Linzess. States that she feels like she is moving her bowels better. Patient was instructed to take Linzess every day. Patient denies melena, hematochezia, unintentional weight loss or ribbon like stools. Patient denies any dyspepsia, dysphagia or odynophagia. Patient denies any GI concerning symptoms today [facility] Medical History Anxiety and depression Asthma Breast calcifications Depression with anxiety IBS (irritable bowel syndrome) Insomnia Polycystic kidney disease Tubular adenoma Type II diabetes mellitus Surgical History Hx of colonoscopy Hx of colonoscopy Family History Father Liver cancer Heart problem Mother Lung cancer Brother Heart problem Diabetes Cardiovascular system problem Substance use disorder Mental health disorder Sister Diabetes Substance use disorder Brother Substance use disorder Social History Household Members: Children Housing: Apartment Are you a primary professional healthcare representative to a significant other at home: No Do you presently have visiting nurse or other home services: No Alcohol intake: current Alcohol intake frequency: 0-2 drinks per day Patient Tobacco Use Status: Former Tobacco user Years Smoked: 15 yrs e-Cigarette/Vaping Use: Never Used Second Hand Smoke Exposure: No service: No Current occupational status: retired Sexual orientation: Straight/Heterosexual Gender identity: Female Cognitive needs: No Hearing needs: No Vision needs: Yes Review of Systems Const Denies weight gain and Denies weight loss ENT Reports no additional complaints, Denies dysphagia and Denies odynophagia Card Reports no additional complaints Resp Reports no additional complaints GI Denies abdominal pain, Denies belching, Denies melena, Denies bloating, Reports constipation, Denies dysphagia, Denies excessive flatus, Denies dyspepsia, Denies heartburn, Denies diarrhea, Denies loose stools, Denies nausea, Denies odynophagia and Denies vomiting Reports no additional complaints Musc Reports no additional complaints Neuro Reports no additional complaints Psych Reports no additional complaints Endo Reports no additional complaints Physical Exam Vital Signs: Last Vital Signs Pulse 67 05/06/23 14:56 BP 102/50 L 05/06/23 14:56 BMI result Body Mass Index 25.0 Const General: healthy appearing, no acute distress and well developed Nutritional Appearance: well nourished Orientation/consciousness: patient oriented x3 HEENT Head: Yes normal to inspection, Yes normocephalic and Yes atraumatic Face and sinus: Yes normal facial exam Mouth: Normal oral and palatal mucosa present Throat: Yes posterior oropharynx normal, Yes tonsils normal and Yes uvula midline Eyes General: appearance normal, both eyes and all related structures Neck Neck: Yes normal visual inspection, Yes full ROM and Yes trachea midline Thyroid: Thyroid normal Resp Effort & Inspection: normal respiratory effort, able to speak in complete sentences, no tracheal deviation and symmetric chest movement Auscultation: clear to auscultation bilaterally Cardio Rate: regular rate Heart sounds: S1 normal heart sound present and S2 normal heart sound present GI Inspection: Yes normal to inspection and No distended Palpation (GI): Soft to palpation, not firm, nontender and No hepatosplenomegaly present Auscultation: normal bowel sounds General: Yes no CVA tenderness Back/Spine/Pelvis Back: no CVA tenderness Skin General skin exam: elasticity normal, turgor normal and dry skin Neuro General: patient oriented x3 Psych Appearance: grossly normal Mental Status: mental status grossly normal Speech and movement: Normal speech and movement present Affect: normal affect Assessment & Plan Assessment & Plan (1) Tubular adenoma: Code(s): D36.9 - Benign neoplasm, unspecified site Plan: History of tubular adenoma in the past. Patient had poor prep this time and will need to return for colorectal screening in 3-6 months. Please book appointment with RN to go over the prep. Two days of clear liquids. Patient can take Dulcolax for 1 week before the procedure at night time and then for Dulcolax tablets the day of the procedure with MiraLax split prep at 17:00 and 22:00 (2) IBS (irritable bowel syndrome): Code(s): K58.9 - Irritable bowel syndrome without diarrhea Qualifiers: Irritable bowel syndrome type: with constipation Qualified Code(s): K58.1 - Irritable bowel syndrome with constipation Plan: Low FODMAP diet. Increase fluid intake and activity to promote better bowel motility (3) Chronic idiopathic constipation: Code(s): K59.04 - Chronic idiopathic constipation Plan: Patient reports constipation better. Continue taking Linzess and increase fluid intake and activity to promote better bowel motility. I will see patient after the procedure, sooner on as needed basis. Patient is agreeable to this plan and verbalizes understanding of instructions. She was given the opportunity to ask questions and all questions answered. Thank you for allowing me to participate in her care Coding Level of Care Code Est Pt Level 3 (07282) Diagnoses Tubular adenoma D36.9 IBS (irritable bowel syndrome) K58.1 Irritable bowel syndrome type: with constipation Chronic idiopathic constipation K59.04 Time Spent (min) 30 Comment 20 minutes spent with patient and additional 10 minutes spent reviewing her records
== END 2023-05-06 15:55 | disposition home or self-care (01) ==
PROVIDERS: Visit Provider Nurse Practitioner Family
DX: D36.9 Benign neoplasm, unspecified site (principal); K58.1 Irritable bowel syndrome with constipation; K59.04 Chronic idiopathic constipation
CPT/HCPCS: 99213

== ENCOUNTER → 2023-05-06 14:41 | Outpatient (BNVA) | payer MEDICARE, SELFPAY | PROVIDERS: Visit Provider Nurse Practitioner Family | DX: K58.1 Irritable bowel syndrome with constipation (principal); K59.04 Chronic idiopathic constipation; D36.9 Benign neoplasm, unspecified site | CPT/HCPCS: 99212 ==

== ENCOUNTER 2023-06-24 10:04 | Outpatient (AMB) | payer MEDICARE, SELFPAY ==
--- NOTE | 2023-06-24 10:07 | MHC.PC.OV ---
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 Allergies No Known Allergies Allergy (Verified 06/24/23 10:11) Medication List - Last Reconciled 06/24/23 by Any Jaffe MD ibuprofen 200 mg PO Q6H PRN lactobacillus combination no.4 (Probiotic) 1 capsule PO daily; administer with a meal 30 days linaclotide (Linzess) 290 mcg PO QAM paroxetine HCl 40 mg PO DAILY simvastatin 40 mg PO BEDTIME trazodone 50 mg PO BEDTIME PRN Tobacco use date assessed: 11/26/22 Fall risk assessment: 1 Fall in past year Last assessed Fall Risk: 06/24/23 Dental Screening Dental Screen Date: 06/24/23 Did you have a dental visit in the last 12 months?: No Did you have a dental problem in the last 6 months where you did not have access to dental care?: No Was dental information given to patient?: Yes HPI 4 month follow up DM HPI Details Patient is 68-year-old female came in today for her regular follow-up visit Patient is stressed out as she went for colonoscopy what her preparation was not appropriate She says that she has a severe constipation and currently taking lizes and still moving her bowels 2 or 3 times a week. She says she will see the nurse 2 days before the procedure to make sure that she is ready for the procedure. Diabetes mellitus: diet controlled hemoglobin A1c 6.2 today Depression:? She is on paroxetine 40 mg once a day.? She has good days and bad days, she is taking care of her sister who has had 3 strokes, and her brother is alcoholic that is causing some stress ? Sleeping difficulty: Patient is on trazodone 50 mg, medication is helping her ? Asthma:? Continue ProAir as needed Lipid disorder: continue simvastatin 40 mg. Other providers patient has seen is Dr. Jean neurology when she complained of recurrent falls MRI of brain was done no acute findings other than slight atrophy Labs are needed before visit in September when patient will come for physical exam [facility] Medical History Anxiety and depression Asthma Breast calcifications Depression with anxiety IBS (irritable bowel syndrome) Insomnia Polycystic kidney disease Tubular adenoma Type II diabetes mellitus Surgical History Hx of colonoscopy Hx of colonoscopy Family History Father Liver cancer Heart problem Mother Lung cancer Brother Heart problem Diabetes Cardiovascular system problem Substance use disorder Mental health disorder Sister Diabetes Substance use disorder Brother Substance use disorder Social History Household Members: Children Housing: Apartment Are you a primary residential child care counselor to a significant other at home: No Do you presently have visiting nurse or other home services: No Alcohol intake: current Alcohol intake frequency: 0-2 drinks per day Patient Tobacco Use Status: Former Tobacco user Years Smoked: 15 yrs e-Cigarette/Vaping Use: Never Used Second Hand Smoke Exposure: No service: No Current occupational status: retired Sexual orientation: Straight/Heterosexual Gender identity: Female Cognitive needs: No Hearing needs: No Vision needs: Yes Questionnaire PHQ-9 Over the last 2 weeks, how often have you been bothered by any of the following problems? 1. Little interest or pleasure in doing things: not at all 2. Feeling down, depressed, or hopeless: not at all 3. Trouble falling or staying asleep, or sleeping too much: nearly every day 4. Feeling tired or having little energy: more than half the days 5. Poor appetite or overeating: not at all 6. Feeling bad about yourself - or that you are a failure or have let yourself or your family down: not at all 7. Trouble concentrating on things, such as reading the newspaper or watching television: several days 8. Moving or speaking so slowly that other people could have noticed. Or the opposite - being so fidgety or restless that you have been moving around a lot more than usual: not at all 9. Thoughts that you would be better off or of hurting yourself in some way: not at all Total score: 6 Source: Developed by Drs. Theo Navas, Marla Brooks, Abdi Kruse and colleagues, with an educational dave from [employer] Thrive Questionnaire Date Thrive assessed: 04/09/22 Review of Systems Const Denies chills and Denies fever(s) ENT Denies epistaxis and Denies nasal discharge Card Denies chest pain Resp Denies chest congestion, Denies cough and Denies hemoptysis GI Denies diarrhea and Denies nausea Skin/Breast Denies rash Neuro Reports no additional complaints Psych Reports no additional complaints Endo Reports no additional complaints Physical exam (Primary Care) Vital Signs: Last Vital Signs Pulse 70 06/24/23 10:10 BP 104/62 06/24/23 10:10 Pulse Ox 96 06/24/23 10:10 BMI result Body Mass Index 25.0 Tobacco/Smoking Status: Tobacco use Status Tobacco use date assessed 11/26/22 06/24/23 10:07 Patient Tobacco Use Status Former Tobacco user 06/24/23 10:07 e-Cigarette/Vaping Use Never Used 06/24/23 10:07 Thrive Assessment: Date of Thrive Assessment Date Thrive assessed 04/09/22 06/24/23 10:07 Const General: cooperative, comfortable and no acute distress Orientation/consciousness: patient oriented x3 HENMT Head: Yes normocephalic Eyes General: appearance normal, both eyes and all related structures Neck Neck: Yes supple Resp Effort & Inspection: normal respiratory effort, no cough and no stridor Cardio Rhythm: regular rhythm Heart sounds: S1 normal heart sound present and S2 normal heart sound present Skin General skin exam: turgor normal Neuro General: patient oriented x3, tone normal and moves all extremities Extrem Right lower extremity: no edema Left lower extremity: no edema Results AMB Hemoglobin A1c AMB Hemoglobin A1c 6.2 % Last Edit by Vernon Madrigal CMA on 06/24/23 10:22 Assessment and Plan Assessment & Plan (1) Diabetes mellitus type 2 in nonobese: Code(s): E11.9 - Type 2 diabetes mellitus without complications (2) Lipid disorder: Code(s): E78.9 - Disorder of lipoprotein metabolism, unspecified (3) Difficulty sleeping: Code(s): G47.9 - Sleep disorder, unspecified (4) Anxiety, generalized: Code(s): F41.1 - Generalized anxiety disorder (5) Asthma, moderate persistent: Code(s): J45.40 - Moderate persistent asthma, uncomplicated (6) Depression, major, recurrent, mild: Code(s): F33.0 - Major depressive disorder, recurrent, mild (7) Irritable bowel syndrome with both constipation and diarrhea: Code(s): K58.2 - Mixed irritable bowel syndrome (8) Brain atrophy: Code(s): G31.9 - Degenerative disease of nervous system, unspecified Plan Patient is 68-year-old female came in today for her regular follow-up visit Patient is stressed out as she went for colonoscopy what her preparation was not appropriate She says that she has a severe constipation and currently taking lizes and still moving her bowels 2 or 3 times a week. She says she will see the nurse 2 days before the procedure to make sure that she is ready for the procedure. Diabetes mellitus: diet controlled hemoglobin A1c 6.2 today Depression:? She is on paroxetine 40 mg once a day.? She has good days and bad days, she is taking care of her sister who has had 3 strokes, and her brother is alcoholic that is causing some stress ? Sleeping difficulty: Patient is on trazodone 50 mg, medication is helping her ? Asthma:? Continue ProAir as needed Lipid disorder: continue simvastatin 40 mg. Other providers patient has seen is Dr. Jean neurology when she complained of recurrent falls MRI of brain was done no acute findings other than slight atrophy Labs are needed before visit in September when patient will come for physical exam Orders: Orders AMB Hemoglobin A1c Today E11.9 - Type 2 diabetes mellitus without complications Vitamin B12 Today E11.9 - Type 2 diabetes mellitus without complications, E78.9 - Disorder of lipoprotein metabolism, unspecified, F33.0 - Major depressive disorder, recurrent, mild, F41.1 - Generalized anxiety disorder, G31.9 - Degenerative disease of nervous system, unspecified, G47.9 - Sleep disorder, unspecified, J45.40 - Moderate persistent asthma, uncomplicated, K58.2 - Mixed irritable bowel syndrome Comprehensive [place]. Panel Fast Today E11.9 - Type 2 diabetes mellitus without complications, E78.9 - Disorder of lipoprotein metabolism, unspecified, F33.0 - Major depressive disorder, recurrent, mild, F41.1 - Generalized anxiety disorder, G31.9 - Degenerative disease of nervous system, unspecified, G47.9 - Sleep disorder, unspecified, J45.40 - Moderate persistent asthma, uncomplicated, K58.2 - Mixed irritable bowel syndrome Hemoglobin A1c Today E11.9 - Type 2 diabetes mellitus without complications, E78.9 - Disorder of lipoprotein metabolism, unspecified, F33.0 - Major depressive disorder, recurrent, mild, F41.1 - Generalized anxiety disorder, G31.9 - Degenerative disease of nervous system, unspecified, G47.9 - Sleep disorder, unspecified, J45.40 - Moderate persistent asthma, uncomplicated, K58.2 - Mixed irritable bowel syndrome TSH reflex Free T4 Today E11.9 - Type 2 diabetes mellitus without complications, E78.9 - Disorder of lipoprotein metabolism, unspecified, F33.0 - Major depressive disorder, recurrent, mild, F41.1 - Generalized anxiety disorder, G31.9 - Degenerative disease of nervous system, unspecified, G47.9 - Sleep disorder, unspecified, J45.40 - Moderate persistent asthma, uncomplicated, K58.2 - Mixed irritable bowel syndrome Vitamin D 25-OH (D2 and D3) Today E11.9 - Type 2 diabetes mellitus without complications, E78.9 - Disorder of lipoprotein metabolism, unspecified, F33.0 - Major depressive disorder, recurrent, mild, F41.1 - Generalized anxiety disorder, G31.9 - Degenerative disease of nervous system, unspecified, G47.9 - Sleep disorder, unspecified, J45.40 - Moderate persistent asthma, uncomplicated, K58.2 - Mixed irritable bowel syndrome Complete Blood Count Auto Diff Today E11.9 - Type 2 diabetes mellitus without complications, E78.9 - Disorder of lipoprotein metabolism, unspecified, F33.0 - Major depressive disorder, recurrent, mild, F41.1 - Generalized anxiety disorder, G31.9 - Degenerative disease of nervous system, unspecified, G47.9 - Sleep disorder, unspecified, J45.40 - Moderate persistent asthma, uncomplicated, K58.2 - Mixed irritable bowel syndrome Coding Level of Care Code Est Pt Level 4 (46642) Diagnoses Diabetes mellitus type 2 in nonobese E11.9 Lipid disorder E78.9 Difficulty sleeping G47.9 Anxiety, generalized F41.1 Asthma, moderate persistent J45.40 Depression, major, recurrent, mild F33.0 Irritable bowel syndrome with both constipation and diarrhea K58.2 Brain atrophy G31.9
[2023-06-24 10:10] VITALS: BP 104/62; PULSE 70; O2SAT 96; BMI 25.0
== END 2023-06-24 10:31 | disposition home or self-care (01) ==
PROVIDERS: PCP Internal Medicine; Visit Provider Internal Medicine
DX: E11.9 Type 2 diabetes mellitus without complications (principal); J45.40 Moderate persistent asthma, uncomplicated; F33.0 Major depressive disorder, recurrent, mild; K58.2 Mixed irritable bowel syndrome; G31.9 Degenerative disease of nervous system, unspecified; G47.9 Sleep disorder, unspecified; E78.9 Disorder of lipoprotein metabolism, unspecified; F41.1 Generalized anxiety disorder
CPT/HCPCS: 83036; 99214

== ENCOUNTER 2023-07-01 10:27 | Outpatient (AMB) | payer MEDICARE, SELFPAY ==
--- NOTE | 2023-07-01 10:28 | MHC.OFFVIS ---
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 Scribed for BENI Pandey by Emma Henriquez medical sales associate, on 07/01/2023. Studio Grip: Studio Grip Present (Sofia) Allergies No Known Allergies Allergy (Verified 07/01/23 10:30) Post menopausal: Yes HPI HPI Comments History of Present Illness Details She is a postmenopausal woman presenting for annual exam. Reports urine incontinence and leakage of urine. Patient admits she tries to eat a healthy diet but does not include Calcium and Vitamin D due to GI issues. She does not active with exercise. Currently sexually active. Admits slight vaginal dryness/irritation and uses Vaseline. STD screening offered; she accepts. Denies family hx of breast, colon and ovarian cancer. Last pap smear 06/18/22. Last mammogram 03/05/23 UTD on colonoscopy. [facility] Medical History Anxiety and depression Asthma Breast calcifications Depression with anxiety IBS (irritable bowel syndrome) Insomnia Leaking of urine Menopausal vaginal dryness Polycystic kidney disease Tubular adenoma Type II diabetes mellitus Urinary incontinence in female Surgical History Hx of colonoscopy Hx of colonoscopy Family History Father Liver cancer Heart problem Mother Lung cancer Brother Heart problem Diabetes Cardiovascular system problem Substance use disorder Mental health disorder Sister Diabetes Substance use disorder Brother Substance use disorder Social History Household Members: Children Housing: Apartment Are you a primary pet care technician to a significant other at home: No Do you presently have visiting nurse or other home services: No Alcohol intake: current Alcohol intake frequency: 0-2 drinks per day Patient Tobacco Use Status: Former Tobacco user Years Smoked: 15 yrs e-Cigarette/Vaping Use: Never Used Second Hand Smoke Exposure: No service: No Current occupational status: retired Sexual orientation: Straight/Heterosexual Gender identity: Female Cognitive needs: No Hearing needs: No Vision needs: Yes Female Reproductive History Menstrual Menopause type: natural Total pregnancies: 3 Full term: 3 Number of Living Children: 3 Date of last pap smear: 06/18/22 (neg pap and hpv) Date of Mammogram: 03/05/23 (Birad 3) Physical Exam Vital Signs: Last Vital Signs BP 106/70 07/01/23 10:34 BMI result Body Mass Index 25.0 Const General: cooperative, healthy appearing, no acute distress, well developed and alert Orientation/consciousness: patient oriented x3 HEENT Head: Yes normal to inspection Eyes General: appearance normal, both eyes and all related structures Neck Neck: Yes normal visual inspection Thyroid: Thyroid normal Chest Chest palpation & inspection: normal inspection of the chest Breast/axilla inspection: normal inspection of the breasts (no puckering, dimpling, peau de orange, retraction, discharge, masses) Breast/axilla palpation: normal palpation of the breasts Resp Effort & Inspection: normal respiratory effort GI Inspection: Yes normal to inspection Palpation (GI): Soft to palpation (to palpation) Rectal Exam - Female: deferred General: Yes bladder normal to inspection External Female Exam: normal external appearance and normal appearance of the urethra Speculum Exam - Vagina: normal appearance of the vagina, normal palpation and vagina atrophic Speculum Exam - Cervix: normal appearance of the cervix and normal palpation Bimanual exam- vagina & uterus: normal palpation and normal palpation Bimanual Exam- Adnexa, other: normal adnexae and no masses Skin General skin exam: no rashes or lesions noted Neuro General: patient oriented x3 Cognition (Neuro): normal cognition Extrem General: Yes normal to inspection Psych Attitude: cooperative Thought process: Normal thought process present Assessment & Plan Assessment & Plan (1) Encounter for well woman exam: Code(s): Z01.419 - Encounter for gynecological examination (general) (routine) without abnormal findings Plan: Discussed: Current recommendations for pap smears per ASCCP guidelines. Breast awareness and periodic self breast exams. Encouraged yearly mammograms. Maintaining a healthy lifestyle including a well balanced diet including Calcium and Vitamin D and routine exercise. Contact office with any PMB. All of her questions and concerns were addressed to the best of my ability RTO in 1 year for AG. (2) Menopausal vaginal dryness: Code(s): N95.1 - Menopausal and female climacteric states Plan: Recommend Replens, [place] jelly, Astroglide or coconut oil for vaginal dryness. Advised not to use anything scented because it may lead to irritation. (3) Urinary incontinence in female: Code(s): R32 - Unspecified urinary incontinence Plan: Referral to Urologist. Advised to do PT, pelvic floor exercises or kegle exercises (discussed 2 different kegle exercises); pt desires to try at home exercises and will call back office is she changes her mind about referral. (4) Leaking of urine: Code(s): R32 - Unspecified urinary incontinence Coding Level of Care Code Est Pt Prev Care >65y(72038) Diagnoses Encounter for well woman exam Z01.419 Menopausal vaginal dryness N95.1 Urinary incontinence in female R32 Leaking of urine R32
[2023-07-01 10:34] VITALS: BP 106/70; BMI 25.0
== END 2023-07-01 11:08 | disposition home or self-care (01) ==
LOC: HO.HWS 10:27
PROVIDERS: PCP Internal Medicine; Visit Provider Advanced Practice Midwife
DX: Z01.419 Encounter for gynecological examination (general) (routine) without abnormal findings (principal); N95.1 Menopausal and female climacteric states; R32 Unspecified urinary incontinence
CPT/HCPCS: 99213; 99397; G0101

== ENCOUNTER → 2023-07-01 10:27 | Outpatient (BNVA) | payer MEDICARE, SELFPAY | PROVIDERS: PCP Internal Medicine; Visit Provider Advanced Practice Midwife | DX: Z01.419 Encounter for gynecological examination (general) (routine) without abnormal findings (principal); R32 Unspecified urinary incontinence; N95.1 Menopausal and female climacteric states | CPT/HCPCS: 99212 ==

== ENCOUNTER 2023-07-28 13:02 | Outpatient (AMB) | payer MEDICARE, SELFPAY ==
--- NOTE | 2023-07-28 13:13 | MHC.OFFVIS ---
Intake Vital Signs 07/28/23 13:14 Height 5 ft Weight 127 lb BMI 24.8 BP 98/66 Blood Pressure Location Rt brachial Position Sitting Pulse 74 Pulse Source Pulse Oximeter Intake Visit Reasons: 4m follow up Repeated falls-Confirmed Intake Note: Patient presents for 4 month follow up . Patient states no issues or concerns today. Allergies No Known Allergies Allergy (Verified 07/28/23 13:15) Medication List - Last Reconciled 07/28/23 by GISELLE Spaulding docusate sodium (Colace) 100 mg PO DAILY ibuprofen 200 mg PO Q6H PRN lactobacillus combination no.4 (Probiotic) 1 capsule PO daily; administer with a meal 30 days linaclotide (Linzess) 290 mcg PO QAM paroxetine HCl 40 mg PO DAILY simvastatin 40 mg PO BEDTIME trazodone 50 mg PO BEDTIME PRN HPI HPI Comments History of Present Illness Details 68-yr-old female presents for f/u visit. Pt denies any significant interval medical changes. Pt reports her neck is not as bothersome as before. Denies UE numbness, tingling. No weakness, but arms feel heavy if she is say No falls. Occasionally her right foot might catch while walking. Her right knee is a bit more sore- trying to do some ankle exercises which makes her knee sore. Still can be off-balance if she is looking down. Did a few sessions of PT- was advised to do the exercises at home. She is doing some exercises- notes her balance is poor especially if standing on 1 foot or feet in front of each other. Denies parasomnais or hyposmia. PFS Medical History Anxiety and depression Asthma Breast calcifications Depression with anxiety IBS (irritable bowel syndrome) Insomnia Leaking of urine Menopausal vaginal dryness Polycystic kidney disease Tubular adenoma Type II diabetes mellitus Urinary incontinence in female Surgical History Hx of colonoscopy Hx of colonoscopy Family History Father Liver cancer Heart problem Mother Lung cancer Brother Heart problem Diabetes Cardiovascular system problem Substance use disorder Mental health disorder Sister Diabetes Substance use disorder Brother Substance use disorder Social History (Reviewed 07/28/23 @ 13:16 by VALERIA Ortiz Household Members: Children Housing: Apartment Are you a primary senior resident care director to a significant other at home: No Do you presently have visiting nurse or other home services: No Alcohol intake: current Alcohol intake frequency: 0-2 drinks per day Patient Tobacco Use Status: Former Tobacco user Years Smoked: 15 yrs e-Cigarette/Vaping Use: Never Used Second Hand Smoke Exposure: No service: No Current occupational status: retired Sexual orientation: Straight/Heterosexual Gender identity: Female Cognitive needs: No Hearing needs: No Vision needs: Yes Review of Systems Const All systems reviewed & are unremarkable except as noted in HPI and below Physical Exam Vital Signs: Last Vital Signs Pulse 74 07/28/23 13:14 BP 98/66 07/28/23 13:14 BMI result Body Mass Index 24.8 Const General: cooperative and no acute distress Orientation/consciousness: patient oriented x3 HEENT Head: Yes normocephalic Resp Effort & Inspection: normal respiratory effort and able to speak in complete sentences Neuro Other: Some bilateral posterior cervical tightness. No tremor Gait steady today General: patient oriented x3, CN's II-XI intact bilaterally and deep tendon reflexes 2+ bilaterally Cognition (Neuro): normal cognition Motor exam (neuro): 5/5 motor strength present throughout Psych Appearance: grossly normal Mental Status: mental status grossly normal Speech and movement: Normal speech and movement present Affect: normal affect Attitude: cooperative Thought process: Normal thought process present Thought content: Normal thought content present Insight: Good insight present (Psych) Judgement: Good judgement present (Psych) Assessment & Plan Assessment & Plan (1) Difficulty balancing: Code(s): R29.818 - Other symptoms and signs involving the nervous system (2) Dizziness: Code(s): R42 - Dizziness and giddiness (3) Restless leg syndrome: Comment: mild Code(s): G25.81 - Restless legs syndrome (4) Tremor: Code(s): R25.1 - Tremor, unspecified Plan Continue PT exercises, home exercises. Continue working on balance exercises- may modify as needed. Pt has no worrisome radicular s/s at this time, however reviewed worrisome s/s to notify us with, ie new onset focal weakness, paresthesias. ? f/u in 6 months or sooner prn. Coding Level of Care Code Est Pt Level 3 (69075) Diagnoses Difficulty balancing R29.818 Dizziness R42 Restless leg syndrome G25.81 Tremor R25.1
[2023-07-28 13:14] VITALS: BP 98/66; PULSE 74; BMI 24.8
== END 2023-07-28 13:38 | disposition home or self-care (01) ==
PROVIDERS: Visit Provider Nurse Practitioner Family
DX: R29.818 Other symptoms and signs involving the nervous system (principal); R42 Dizziness and giddiness; G25.81 Restless legs syndrome
CPT/HCPCS: 99213

== ENCOUNTER → 2023-07-28 13:02 | Outpatient (BNVA) | payer MEDICARE, SELFPAY | PROVIDERS: Visit Provider Nurse Practitioner Family | DX: R29.818 Other symptoms and signs involving the nervous system (principal); G25.81 Restless legs syndrome; R42 Dizziness and giddiness; R25.1 Tremor, unspecified | CPT/HCPCS: 99212 ==

== ENCOUNTER 2023-09-09 12:59 | Outpatient (REF) | payer MEDICARE, SELFPAY ==
--- NOTE | ~2023-09-09 | MM_ITS ---
EXAMINATION: MM DIAGNOSTIC DIGITAL MAMMOGRAPHY, BILATERAL CLINICAL INFORMATION: Follow-up calcifications, 3 groups left breast, 1 group right breast. Patient is status post upper outer left breast lumpectomy for LCIS by report 04/22/2012. Patient is high risk with a prior Tyrer-Cuzick Model score of 40%. Additional annual screening with breast MRI may be of benefit in women with a score of 20% or greater. COMPARISON: Mammography: 03/05/2023, 09/05/2022, 03/04/2022, 02/15/2022, 02/12/2021, 09/05/2019, and dating back to 2011. TECHNIQUE: Digital mammography is performed in craniocaudal and mediolateral oblique views along with computer-aided detection (CAD). In addition, spot magnification 2-D right CC and ML as well as left CC and ML magnification views were also performed. FINDINGS: The breasts are heterogeneously dense, which may obscure small masses (ACR BI-RADS breast composition Category c). There are 3 groups of calcifications in the mid and anterior lateral left breast, which were new 6 months prior appear stable from 03/05/2023 without aggressive change. These are probably benign. In addition, there is a far medial group of calcifications in the mid left breast, which has not significantly changed since 2017 and is benign. In the right breast, there is a stable 7:00 partially calcified mass which is unchanged, favoring a benign process such as a calcified fibroadenoma. This remains probably benign. Stable surgical clips in both breasts, and post lumpectomy scarring in the upper outer left breast is present. Otherwise, the overall heterogeneously dense and somewhat nodular parenchymal pattern is stable from prior exams without definite change. No definite developing masses or new areas of architectural distortion are evident. MM/MM diagnostic mammo BI IMPRESSION: -3 groups of nonspecific indeterminate calcifications in the outer left breast are stable without aggressive change and remain probably benign. Recommend six-month interval follow-up to include standard magnification views. -Single group of calcifications in the medial left breast are unchanged from 2017 and benign. No further follow-up recommended. -Calcified mass at the 7:00 axis right breast, mid depth, likely benign process such as a degenerating fibroadenoma is unchanged. One-year follow-up advised to ensure stability. -Stable post lumpectomy changes upper outer left breast. -Given high risk of this patient and multiple findings, along with heterogeneously dense nodular breast parenchyma, screening breast MRI would be a beneficial screening adjunct. This was discussed with the patient. ASSESSMENT: BI-RADS BI-RADS 3 - Probably benign finding(s) - 6 month follow-up suggested RECOMMENDATION: 6 Month F/U This patient's information was entered into a reminder system with a target due date for their next mammogram.
== END 2023-09-09 13:00 | disposition home or self-care (01) ==
LOC: HO.MAMMO 12:59
PROVIDERS: PCP Internal Medicine; Visit Provider Internal Medicine
DX: R92.1 Mammographic calcification found on diagnostic imaging of breast (principal)
CPT/HCPCS: 77062; 77066

== ENCOUNTER → 2023-09-09 13:00 | Outpatient (BNV) | payer MEDICARE, SELFPAY | PROVIDERS: PCP Internal Medicine; Visit Provider Radiology Diagnostic Radiology | DX: R92.1 Mammographic calcification found on diagnostic imaging of breast (principal); D24.1 Benign neoplasm of right breast | CPT/HCPCS: 77066 ==

== ENCOUNTER 2023-09-18 09:32 | Outpatient (REF) | payer MEDICARE, SELFPAY ==
[2023-09-18 11:22] LABS: MANUAL DIFF FLAG NO
[2023-09-18 11:38] LABS: Basophils Percent Auto 0.3 % (0-2); Eosinophils Absolute Auto 0.1 X10*3/uL (0.0-0.4); Eosinophils Percent Auto 1.9 % (0-4); Hematocrit 41.9 % (37.0-47.0); Hemoglobin 13.8 g/dl (12.0-16.0); Imm Gran Abs Auto 0.01 X10*3/uL (0.00-0.03); Imm Gran Pct Auto 0.3 % (0.0-0.4); Lymphocytes Absolute Auto 1.2 X10*3/uL (1.2-4.9); Lymphocytes Percent Auto 38.2 % (20-40); Mean Corpuscular HGB Conc 32.9 g/dl (31.0-35.0); Mean Corpuscular Hemoglobin 29.8 pg (27.0-33.0); Mean Corpuscular Volume 90.5 fL (80.0-98.0); Mean Platelet Volume 11.1 fL (9.4-12.3); Monocytes Absolute Auto 0.4 X10*3/uL (0.1-1.2); Monocytes Percent Auto 12.5 % (2-11); Neutrophils Absolute Auto 1.5 x10*3/uL (2.0-8.3); Neutrophils Percent Auto 46.8 % (45-73); Platelet Count 184 X10*3/uL (160-400); Red Blood Count 4.63 X10*6/uL (4.20-5.50); Red Cell Distribution Width 12.5 % (11.0-16.0); White Blood Count 3.2 X10*3/uL (4.8-10.8)
[2023-09-18 11:56] LABS: Estimated Average Glucose 137 mg/dL; Hemoglobin A1c % 6.4 % (<6.0)
[2023-09-18 12:44] LABS: Vitamin B12 552 pg/mL (200-900)
[2023-09-18 12:49] LABS: Alanine Aminotransferase 14 U/L (0-31); Albumin Level 3.9 g/dL (3.5-5.0); Alkaline Phosphatase 82 U/L (39-117); Anion Gap 10 (12-20); Aspartate Amino Transferase 17 U/L (5-31); Bilirubin Total 0.7 mg/dL (0.0-1.0); Blood Urea Nitrogen 11 mg/dL (9-16); Calcium 9.1 mg/dL (8.4-10.2); Carbon Dioxide 31 mmol/L (22-29); Chloride 108 mmol/L (96-108); Estimated Glomerular Filt Rate > 60; Glucose Fasting 142 mg/dL (60-99); Potassium 4.3 mmol/L (3.3-5.1); Sodium 145 mmol/L (135-145); Total Protein 6.5 g/dL (6.5-8.0)
[2023-09-18 12:58] LABS: TSH reflex Free T4 2.53 uIU/mL (0.32-4.0)
[2023-09-22 16:48] LABS: Vitamin D 25-OH, D2 <4 ng/mL; Vitamin D 25-OH, D3 29 ng/mL; Vitamin D 25-OH, Total 29 ng/mL (30-100)
== END 2023-09-18 09:33 | disposition home or self-care (01) ==
LOC: HO.HMGCLDS 09:32
PROVIDERS: PCP Internal Medicine; Visit Provider Internal Medicine
DX: F33.0 Major depressive disorder, recurrent, mild (principal); J45.40 Moderate persistent asthma, uncomplicated; F41.1 Generalized anxiety disorder; E11.9 Type 2 diabetes mellitus without complications; E78.9 Disorder of lipoprotein metabolism, unspecified; G47.9 Sleep disorder, unspecified; K58.2 Mixed irritable bowel syndrome; G31.9 Degenerative disease of nervous system, unspecified
CPT/HCPCS: 36415; 80053; 82306; 82607; 83036; 84443; 85025

== ENCOUNTER 2023-09-22 10:27 | Outpatient (AMB) | payer MEDICARE, SELFPAY ==
[2023-09-22 10:31] VITALS: BP 126/64; PULSE 73; O2SAT 98; BMI 25.2
--- NOTE | 2023-09-22 10:31 | MHC.PC.OV ---
Vital Signs 09/22/23 10:31 Height 5 ft Weight 129 lb 4 oz BMI 25.2 BP 126/64 Blood Pressure Location Rt brachial Position Sitting Pulse 73 Pulse Source Pulse Oximeter Pulse Oximetry (%) 98 Oxygen Delivery Method Room Air Intake Visit Reasons: Annual PE Allergies No Known Allergies Allergy (Verified 09/22/23 10:33) Medication List - Last Reconciled 09/22/23 by Any Jaffe MD docusate sodium (Colace) 100 mg PO DAILY ibuprofen 200 mg PO Q6H PRN lactobacillus combination no.4 (Probiotic) 1 capsule PO daily; administer with a meal 30 days linaclotide (Linzess) 290 mcg PO QAM paroxetine HCl 40 mg PO DAILY simvastatin 40 mg PO BEDTIME trazodone 50 mg PO BEDTIME PRN Tobacco use date assessed: 09/22/23 Fall risk assessment: 1 Fall in past year Last assessed Fall Risk: 09/22/23 Dental Screening Dental Screen Date: 09/22/23 Did you have a dental visit in the last 12 months?: Yes Did you have a dental problem in the last 6 months where you did not have access to dental care?: No Was dental information given to patient?: Patient has dentist HPI Annual PE HPI Details Patient came in today for physical examination Patient has been going through a tough time, she lost her brother recently And her other brother is alcoholic She is already taking medication for depression Patient agreed to start therapy I have sent message to our behavior health coordinator. Mammogram is up-to-date Pap smear, patient goes to OBGYN Colonoscopy up-to-date, patient says that last colonoscopy preparation was not appropriate so she is going to have another colonoscopy next month Patient also need to see dermatology for skin cancer screening, referral placed. Labs done recently reviewed, patient is diabetic with controlled hemoglobin A1c on diet Medication list reviewed Follow-up 4 months PFSH Medical History Leaking of urine Urinary incontinence in female Menopausal vaginal dryness Tubular adenoma Polycystic kidney disease IBS (irritable bowel syndrome) Breast calcifications Type II diabetes mellitus Insomnia Anxiety and depression Asthma Depression with anxiety Surgical History Hx of colonoscopy Hx of colonoscopy Family History Father Liver cancer Heart problem Mother Lung cancer Brother Heart problem Diabetes Cardiovascular system problem Substance use disorder Mental health disorder Sister Diabetes Substance use disorder Brother Substance use disorder Social History Household Members: Children Housing: Apartment Are you a primary career development coordinator to a significant other at home: No Do you presently have visiting nurse or other home services: No Alcohol intake: current Alcohol intake frequency: 0-2 drinks per day Patient Tobacco Use Status: Former Tobacco user Years Smoked: 15 yrs e-Cigarette/Vaping Use: Never Used Second Hand Smoke Exposure: No service: No Current occupational status: retired Sexual orientation: Straight/Heterosexual Gender identity: Female Cognitive needs: No Hearing needs: No Vision needs: Yes Questionnaire PHQ-9 Over the last 2 weeks, how often have you been bothered by any of the following problems? 1. Little interest or pleasure in doing things: several days 2. Feeling down, depressed, or hopeless: several days 3. Trouble falling or staying asleep, or sleeping too much: several days 4. Feeling tired or having little energy: several days 5. Poor appetite or overeating: not at all 6. Feeling bad about yourself - or that you are a failure or have let yourself or your family down: not at all 7. Trouble concentrating on things, such as reading the newspaper or watching television: several days 8. Moving or speaking so slowly that other people could have noticed. Or the opposite - being so fidgety or restless that you have been moving around a lot more than usual: not at all 9. Thoughts that you would be better off or of hurting yourself in some way: not at all Total score: 5 Depression Screening Interpretation: Negative Depression Screening Done: Yes 35655 - PHQ-9 Billing: Yes Source: Developed by Drs. Theo Navas, Marla Brooks, Abdi Kruse and colleagues, with an educational dave from [employer] [place]. Thrive Questionnaire Date Thrive assessed: 09/22/23 I am a: Patient What is your living situation today?: I have a steady place to live Within the past 12 months, did the food you bought not last and you didn't have the money to get more?: Never true Within the past 12 months, did you worry whether your food would run out before you got money to buy more?: Never true Do you have trouble paying for medicines?: Yes Do you have trouble getting transportation to medical appointments?: No Do you have trouble paying your heating and electricity bill?: Yes Do you have trouble taking care of your child, family member or friend?: No Do you have trouble with day-to-day activities such as bathing, preparing meals, shopping, managing finances, etc.?: No Are you currently unemployed and looking for a job?: No Are you interested in more education?: No Please select the resources that you would like help with: None Currently or been in a relationship where the following occur: no concerns reported KATHY-7 AMB Questionnaire KATHY-7 Date KATHY - 7 assessed: 09/22/23 Feeling nervous, anxious, or on edge: 1 = Several days Not being able to stop or control worryin = Several days Worrying too much about different things: 1 = Several days Trouble relaxin = Not at all Being so restless that it is hard to sit still: 0 = Not at all Becoming easily annoyed or irritable: 0 = Not at all Feeling afraid as if something awful might happen: 0 = Not at all Total KATHY-7 score (0-4 normal; 5-9 mild; 10-14 moderate; 15-21 severe): 3 Source: Developed by Drs. Theo Navas, Marla Brooks, Abdi Kruse and colleagues, with an educational dave from [employer] [place]. KATHY-7 Assessment Billing KATHY-7 Assessment Tool: KATHY-7 Assessment 68620 Review of Systems Const Denies chills, Denies fever(s) and Denies headache(s) Eyes Denies blurry vision ENT Denies headache(s), Denies nasal discharge, Denies nasal obstruction, Denies odynophagia and Denies sinus pain Card Denies chest pain at rest and Denies chest pain with activity Resp Denies cough and Denies hemoptysis GI Denies diarrhea, Denies odynophagia, Denies vomiting and Denies hematemesis Reports as per HPI Musc Denies abnormal gait Skin/Breast Reports as per HPI Neuro Denies Neuro-related abnormal movements, Denies Abnormal speech present, Denies abnormal gait, Denies headache(s) and Denies Sensory deficit (Neuro) Psych Denies mood swings and Denies paranoia Endo Reports as per HPI Nishant/Lymph Reports as per HPI Aller/Immun Reports as per HPI Physical exam (Primary Care) Vital Signs: Last Vital Signs Pulse 73 09/22/23 10:31 BP 126/64 09/22/23 10:31 Pulse Ox 98 09/22/23 10:31 Oxygen Delivery Method Room Air 09/22/23 10:31 BMI result Body Mass Index 25.2 Tobacco/Smoking Status: Tobacco use Status Tobacco use date assessed 09/22/23 09/22/23 10:35 Patient Tobacco Use Status Former Tobacco user 09/22/23 10:35 e-Cigarette/Vaping Use Never Used 09/22/23 10:35 PHQ-9: PHQ-9 Score PHQ-9: Total score 5 09/22/23 10:58 Depression Screening Interpretation: Negative Thrive Assessment: Date of Thrive Assessment Date Thrive assessed 09/22/23 09/22/23 10:56 Currently or been in a relationship where the following occur: no concerns reported Const General: cooperative, comfortable and no acute distress Orientation/consciousness: patient oriented x3 HENMT Head: Yes normocephalic and Yes atraumatic Eyes General: appearance normal, both eyes and all related structures Pupils: Equal, round and reactive pupils present EOM: EOMs intact bilaterally Neck Neck: Yes supple and No lymphadenopathy Thyroid: Thyroid normal Lymphatic: no lymphadenopathy noted Resp Effort & Inspection: normal respiratory effort and able to speak in complete sentences Auscultation: clear to auscultation bilaterally Cardio Heart sounds: S1 normal heart sound present and S2 normal heart sound present GI Palpation (GI): Soft to palpation and nontender Auscultation: normal bowel sounds General: Yes no CVA tenderness Back/Spine/Pelvis Back: no CVA tenderness Skin General skin exam: elasticity normal and turgor normal Neuro General: patient oriented x3 and gait normal Cranial nerves: Yes Equal, round and reactive pupils present Speech: No Abnormal speech present Sensory Exam: No Sensory deficit (Neuro) Coordination: tandem gait normal and Romberg test negative Extrem General: Yes normal exam except as noted and No edema Assessment and Plan Assessment & Plan (1) Encounter for general adult medical examination with abnormal findings: Code(s): Z00.01 - Encounter for general adult medical examination with abnormal findings (2) Skin cancer screening: Code(s): Z12.83 - Encounter for screening for malignant neoplasm of skin (3) Diabetes mellitus type 2 in nonobese: Code(s): E11.9 - Type 2 diabetes mellitus without complications (4) Lipid disorder: Code(s): E78.9 - Disorder of lipoprotein metabolism, unspecified (5) Difficulty sleeping: Code(s): G47.9 - Sleep disorder, unspecified (6) Anxiety, generalized: Code(s): F41.1 - Generalized anxiety disorder (7) Asthma, moderate persistent: Code(s): J45.40 - Moderate persistent asthma, uncomplicated (8) Depression, major, recurrent, mild: Code(s): F33.0 - Major depressive disorder, recurrent, mild (9) Irritable bowel syndrome with both constipation and diarrhea: Code(s): K58.2 - Mixed irritable bowel syndrome (10) Brain atrophy: Code(s): G31.9 - Degenerative disease of nervous system, unspecified Plan Patient came in today for physical examination Patient has been going through a tough time, she lost her brother recently And her other brother is alcoholic She is already taking medication for depression Patient agreed to start therapy I have sent message to our behavior health coordinator. Mammogram is up-to-date Pap smear, patient goes to OBGYN Colonoscopy up-to-date, patient says that last colonoscopy preparation was not appropriate so she is going to have another colonoscopy next month Patient also need to see dermatology for skin cancer screening, referral placed. Labs done recently reviewed, patient is diabetic with controlled hemoglobin A1c on diet Medication list reviewed Patient has seen neurology as she felt her balance is not good She had MRI brain done which showed disliked brain atrophy Follow-up 4 months Orders: Referrals Dermatology Referral Z12.83 - Encounter for screening for malignant neoplasm of skin Coding Level of Care Code Est Pt Prev Care >65y(24712) Diagnoses Encounter for general adult medical examination with abnormal findings Z00.01 Skin cancer screening Z12.83 Diabetes mellitus type 2 in nonobese E11.9 Lipid disorder E78.9 Difficulty sleeping G47.9 Anxiety, generalized F41.1 Asthma, moderate persistent J45.40 Depression, major, recurrent, mild F33.0 Irritable bowel syndrome with both constipation and diarrhea K58.2 Brain atrophy G31.9 Additional Codes KATHY-7 Assessment Billing - KATHY-7 Assessment Tool: KATHY-7 Assessment [id number] ([id number])
== END 2023-09-22 10:45 | disposition home or self-care (01) ==
PROVIDERS: Visit Provider Internal Medicine
DX: Z00.00 Encounter for general adult medical examination without abnormal findings (principal); E11.9 Type 2 diabetes mellitus without complications; G31.9 Degenerative disease of nervous system, unspecified; F33.0 Major depressive disorder, recurrent, mild; Z12.83 Encounter for screening for malignant neoplasm of skin; E78.9 Disorder of lipoprotein metabolism, unspecified; G47.9 Sleep disorder, unspecified; F41.1 Generalized anxiety disorder; J45.40 Moderate persistent asthma, uncomplicated; K58.2 Mixed irritable bowel syndrome
CPT/HCPCS: 99397

== ENCOUNTER 2023-09-25 14:31 | Outpatient (AMB) | payer MEDICARE, SELFPAY ==
--- NOTE | 2023-09-25 14:32 | A.OFFVIS_ITS ---
Intake Vital Signs 09/25/23 14:33 Height 5 ft Weight 125 lb 10.616 oz BMI 24.5 BP 112/53 L Blood Pressure Location Rt brachial Position Sitting Pulse 75 Pulse Source Pulse Oximeter Intake Visit Reasons: Discuss prep with mariluz Intake Note: Pt presents to the office today to discuss her colonoscopy prep. Pt states she is feeling okay and denies any GI concerns except having diarrhea 3-4 times toda y.Pt states she was off of her linzess for 2 weeks and started taking it again this morning and she isnt sure if that is what caused her diarrhea. Allergies No Known Allergies Allergy (Verified 09/25/23 14:34) HPI Discuss prep with mariluz HPI Details LAST VISIT Tubular adenoma History of tubular adenoma in the past. Patient had poor prep this time and will need to return for colorectal screening in 3-6 months. Please book appointment with RN to go over the prep. Two days of clear liquids. Patient can take Dulcolax for 1 week before the procedure at night time and then for Dulcolax t ablets the day of the procedure with MiraLax split prep at 17:00 and 22:00 IBS (irritable bowel syndrome) Low FODMAP diet. Increase fluid intake and activity to promote better bowel motility Chronic idiopathic constipation Patient reports constipation better. Continue taking Linzess and increase fluid intake and activity to promote better bowel motility. I will see patient after the procedure, sooner on as needed basis. Patient is agreeable to this plan and verbalizes understanding of instructions. She was given the opportunity to ask questions and all questions answered. TODAY'S VISIT Patient is here today for follow-up and to discuss going for colonoscopy again. Patient states that she was unable to get her Linzess due to insurance for couple weeks. Patient took her 1st dose ice then this morning. Patient reports that she had diarrhea a few times today. Otherwise patient states that she has been doing okay when taking to 90 mcg a day. Patient states that she also takes to help lyse in a week to help him with her bowels better. Patient states that she drinks plenty water. No issues with anesthesia in the past. No history of sleep apnea. Patient is not on any anticoagulation medication. Patient denies melena, hematochezia, unintentional weight loss or ribbon like stools. [facility] Medical History Leaking of urine Urinary incontinence in female Menopausal vaginal dryness Tubular adenoma Polycystic kidney disease IBS (irritable bowel syndrome) Breast calcifications Type II diabetes mellitus Insomnia Anxiety and depression Asthma Depression with anxiety Surgical History Hx of colonoscopy Hx of colonoscopy Family History Father Liver cancer Heart problem Mother Lung cancer Brother Heart problem Diabetes Cardiovascular system problem Substance use disorder Mental health disorder Sister Diabetes Substance use disorder Brother Substance use disorder Social History (Updated 09/25/23 @ 14:35 by Mya Casillas MA) Household Members: Children Housing: Apartment Are you a primary family member caretaker to a significant other at home: No Do you presently have visiting nurse or other home services: No Alcohol intake: never Patient Tobacco Use Status: Former Tobacco user Years Smoked: 15 yrs e-Cigarette/Vaping Use: Never Used Second Hand Smoke Exposure: No service: No Current occupational status: retired Sexual orientation: Straight/Heterosexual Gender identity: Female Cognitive needs: No Hearing needs: No Vision needs: Yes Review of Systems Const Denies weight gain and Denies weight loss ENT Reports no additional complaints, Denies dysphagia and Denies odynophagia Card Reports no additional complaints Resp Reports no additional complaints GI Denies abdominal pain, Denies belching, Denies melena, Denies bloating, Denies change in bowel habits, Reports constipation, Denies dysphagia, Denies excessive flatus, Denies dyspepsia, Denies heartburn, Denies diarrhea, Reports loose stools, Denies nausea, Denies odynophagia and Denies vomiting Reports no additional complaints Musc Reports no additional complaints Neuro Reports no additional complaints Psych Reports no additional complaints Endo Reports no additional complaints Physical Exam Vital Signs: Last Vital Signs Pulse 75 09/25/23 14:33 BP 112/53 L 09/25/23 14:33 BMI result Body Mass Index 24.5 Const General: healthy appearing, no acute distress and well developed Nutritional Appearance: well nourished Orientation/consciousness: patient oriented x3 HEENT Head: Yes normal to inspection, Yes normocephalic and Yes atraumatic Face and sinus: Yes normal facial exam Mouth: Normal oral and palatal mucosa present Throat: Yes posterior oropharynx normal, Yes tonsils normal and Yes uvula midline Eyes General: appearance normal, both eyes and all related structures Neck Neck: Yes normal visual inspection, Yes full ROM and Yes trachea midline Thyroid: Thyroid normal Resp Effort & Inspection: normal respiratory effort, able to speak in complete sentences, no tracheal deviation and symmetric chest movement Auscultation: clear to auscultation bilaterally Cardio Rate: regular rate Heart sounds: S1 normal heart sound present and S2 normal heart sound present GI Inspection: Yes normal to inspection and No distended Palpation (GI): Soft to palpation, not firm, nontender and No hepatosplenomegaly present Auscultation: normal bowel sounds General: Yes no CVA tenderness Back/Spine/Pelvis Back: no CVA tenderness Skin General skin exam: elasticity normal, turgor normal and dry skin Neuro General: patient oriented x3 Psych Appearance: grossly normal Mental Status: mental status grossly normal Thought content: Normal thought content present Assessment & Plan Assessment & Plan (1) Tubular adenoma: Code(s): D36.9 - Benign neoplasm, unspecified site (2) Irritable bowel syndrome with both constipation and diarrhea: Code(s): K58.2 - Mixed irritable bowel syndrome (3) Chronic idiopathic constipation: Code(s): K59.04 - Chronic idiopathic constipation Plan Patient will continue taking Linzess daily. Patient can start taking Dulcolax on as needed basis in the evening to make sure that she empties her bowels completely. Patient was encouraged to take Dulcolax tablets for 1 week before procedure every night and day before procedure she will take 4 tablets at noon time followed by split MiraLax prep. What to expect before during and after the procedure discussed with patient. I will see her after the procedure, sooner on an as-needed basis. Patient is agreeable to this plan and verbalizes understanding of instructions. She was given the opportunity to ask questions and all questions answered. Thank you for allowing me to participate in her care her Medications: New bisacodyl (Dulcolax (bisacodyl)) 10 mg (2 x 5 mg) PO BEDTIME 180 tabs 4RF polyethylene glycol 3350 (Miralax) As directed by gastroenterology department at [facility] 238 grams PO ONCE 238 grams 0RF Z12.11 - Encounter for screening for malignant neoplasm of colon Coding Level of Care Code Est Pt Level 3 (12583) Diagnoses Tubular adenoma D36.9 Irritable bowel syndrome with both constipation and diarrhea K58.2 Chronic idiopathic constipation K59.04 Time Spent (min) 25 Comment 15 minutes spent with patient and additional 10 minutes spent reviewing her records
[2023-09-25 14:33] VITALS: BP 112/53; PULSE 75; BMI 24.5
== END 2023-09-25 15:08 | disposition home or self-care (01) ==
PROVIDERS: PCP Internal Medicine; Visit Provider Nurse Practitioner Family
DX: D36.9 Benign neoplasm, unspecified site (principal); K58.2 Mixed irritable bowel syndrome; K59.04 Chronic idiopathic constipation
CPT/HCPCS: 99213

== ENCOUNTER → 2023-09-25 14:31 | Outpatient (BNVA) | payer MEDICARE, SELFPAY | PROVIDERS: PCP Internal Medicine; Visit Provider Nurse Practitioner Family | DX: K58.2 Mixed irritable bowel syndrome (principal); K59.04 Chronic idiopathic constipation; D36.9 Benign neoplasm, unspecified site | CPT/HCPCS: 99212 ==

== ENCOUNTER 2023-10-27 08:22 | Day surgery (SDC) | payer MEDICARE, SELFPAY ==
[2023-10-23 12:17] VITALS: BMI 24.4
--- NOTE | 2023-10-26 12:24 | P.CONAN_ITS ---
Documented by User: Dulce Penn NP 10/26/23 12:26 HPI - Anesthesia Eval Consult details Narrative: 68yo F for Colonoscopy PMFSH Active Problems Active Problems: All Active Problems (Updated 10/23/23 @ 12:08 by Mattie Gautam RN) Dense breasts (Acute) Encounter for general adult medical examination with abnormal findings (Acute) Dizziness (Acute) Difficulty balancing (Acute) Brain atrophy (Acute) Tremor (Acute) Restless leg syndrome (Acute) Lumbago (Acute) Cervicalgia (Acute) Depression, major, recurrent, mild (Acute) Skin cancer screening (Acute) Recurrent falls (Acute) Pruritus of vulva (Acute) Encounter for routine gynecological examination (Acute) Injury of coccyx (Acute) Fall (Acute) Asthma, moderate persistent (Acute) Anxiety, generalized (Acute) Diet-controlled diabetes mellitus (Acute) Small intestinal bacterial overgrowth (Acute) Abdominal bloating (Acute) Irritable bowel syndrome with both constipation and diarrhea (Acute) Colon cancer screening (Acute) Asthma, mild (Acute) Difficulty sleeping (Acute) Lipid disorder (Acute) Diabetes mellitus type 2 in nonobese (Acute) Leaking of urine (Acute) Urinary incontinence in female (Acute) Menopausal vaginal dryness (Acute) Tubular adenoma (Acute) Past Medical History Medical History Leaking of urine Urinary incontinence in female Menopausal vaginal dryness Tubular adenoma Polycystic kidney disease IBS (irritable bowel syndrome) Breast calcifications Type II diabetes mellitus Insomnia Asthma Depression with anxiety Family History Family History Father Liver cancer Heart problem Mother Lung cancer Brother Heart problem Diabetes Cardiovascular system problem Substance use disorder Mental health disorder Sister Diabetes Substance use disorder Brother Substance use disorder Family history of problems with anesthesia: No Surgical History Surgical History Hx of colonoscopy Hx of colonoscopy History of Problems with Anesthesia: No Social History Social History Household Members: Children Housing: Apartment Are you a primary healthcare liaison to a significant other at home: No Do you presently have visiting nurse or other home services: No Alcohol intake: never Comment: Tylenol PO given Patient Tobacco Use Status: Former Tobacco user Years Smoked: 15 yrs e-Cigarette/Vaping Use: Never Used Second Hand Smoke Exposure: No Are you DNR?: No Advance Directives: No Advance Directives Information Provided: Yes Nutrition Risks: No Nutritional Risk service: No Current occupational status: retired Sexual orientation: Straight/Heterosexual Gender identity: Female Cognitive needs: No Hearing needs: No Vision needs: Yes Meds Allergies Allergy/AdvReac Type Severity Reaction Status Date / Time No Known Allergies Allergy Verified 10/27/23 09:06 Home Medications Medication Instructions Recorded Confirmed Last Taken Type ibuprofen 200 mg tablet 200 mg PO Q6H PRN 03/26/23 09/22/23 Unknown History docusate sodium 100 mg capsule 100 mg PO DAILY 07/01/23 09/22/23 Unknown History (Colace) Exam Height,Weight and Vital Signs: Height 5 ft Weight 56.699 kg Pertinent Lab Results Pertinent Lab Results: Laboratory Tests 09/18/23 09:37 WBC 3.2 L Hgb 13.8 Hct 41.9 Plt Count 184 Sodium 145 Potassium 4.3 Chloride 108 Carbon Dioxide 31 H BUN 11 Creatinine 0.79 Assessment and Plan Assessment Anesthesia Assessment: Chart Reviewed Final Anesthetic Review Family History of Problems with Anesthesia: No History of Problems with Anesthesia: No Documented by User: Yasmeen Boogie MD 10/27/23 09:37 HPI - Anesthesia Eval Consult details Narrative: 68yo F for Colonoscopy,daily continuous marihuana and tobacco smoker FOR[facility]LY [facility], [facility] Past Medical History Medical History Leaking of urine Urinary incontinence in female Menopausal vaginal dryness Tubular adenoma Polycystic kidney disease IBS (irritable bowel syndrome) Breast calcifications Type II diabetes mellitus Insomnia Asthma Depression with anxiety Family History Family History Father Liver cancer Heart problem Mother Lung cancer Brother Heart problem Diabetes Cardiovascular system problem Substance use disorder Mental health disorder Sister Diabetes Substance use disorder Brother Substance use disorder Surgical History Surgical History Hx of colonoscopy Hx of colonoscopy Social History Social History Household Members: Children Housing: Apartment Are you a primary healthcare liaison to a significant other at home: No Do you presently have visiting nurse or other home services: No Alcohol intake: never Comment: Tylenol PO given Patient Tobacco Use Status: Former Tobacco user Years Smoked: 15 yrs e-Cigarette/Vaping Use: Never Used Second Hand Smoke Exposure: No Are you DNR?: No Advance Directives: No Advance Directives Information Provided: Yes Nutrition Risks: No Nutritional Risk service: No Current occupational status: retired Sexual orientation: Straight/Heterosexual Gender identity: Female Cognitive needs: No Hearing needs: No Vision needs: Yes Meds Allergies Allergy/AdvReac Type Severity Reaction Status Date / Time No Known Allergies Allergy Verified 10/27/23 09:06 Home Medications Medication Instructions Recorded Confirmed Last Taken Type ibuprofen 200 mg tablet 200 mg PO Q6H PRN 03/26/23 09/22/23 Unknown History docusate sodium 100 mg capsule 100 mg PO DAILY 07/01/23 09/22/23 Unknown History (Colace) Exam Airway Mallampati Class: II TM Dist: >3cm Neck ROM: Full Heart: rrr Lungs: cta Assessment and Plan Assessment Anesthesia Assessment: Anesthesia Plan Discussed and Smoking Cess. Discussed (not motivated ) Final Anesthetic Review NPO: Yes ASA Class: III Final Preanesthetic Review: No Changes in Pt Med Stat, Meds/Allgs Chart Reviewed, Consent Obtained/Reviewed and Anes Risks/Benef Reviewed Patient Risk: Intermediate Procedure Risk: Low Anesthetic Plan Anesthetic Plan: MAC: Disposition: Standard PACU
[2023-10-27] MEDS: Lactated Ringers 1,000 ML 100 ML IVCONT (08:29)
[2023-10-27 08:33] VITALS: BMI 24.2
[2023-10-27 08:47] LABS: Glucose, Whole Blood 104 mg/dL (60-115)
[2023-10-27 08:48] VITALS: BP 125/63; PULSE 72; RESP 18; TEMP 36.7; O2SAT 98
--- NOTE | 2023-10-27 09:09 | MHC.SHP ---
Pre-Procedural Eval Section A Date of Service: 10/27/23 Section B Chief Complaint: Benign neoplasm of colon, unspecified Relevant Family History (Specify if Yes): No Relevant Social History: None Present Medications: see Short Stay Collaborative assessment Medical History: Significant History (Leaking of urine Urinary incontinence in female Menopausal vaginal dryness Tubular adenoma Polycystic kidney disease IBS (irritable bowel syndrome) Breast calcifications Type II diabetes mellitus Insomnia Anxiety and depression Asthma Depression with anxiety) History of Previous Operations: Relevant previous surgery/procedure and date(s) (Hx of colonoscopy) Allergies: Allergies Allergy/AdvReac Type Severity Reaction Status Date / Time No Known Allergies Allergy Verified 10/27/23 09:06 Review of Systems Sugical H&P ROS: Negative: Constitution, Cardiovascular, Respiratory, Neurological, Psychiatric, Hem-Onc, Allergic/Immunologic, Gastrointestinal, Genitourinary, Musculoskeletal, Integumentary, Endocrine and Eyes/Ears/Nose/Throat Exam Surgical H&P Exam: Normal: HEENT, Normal: Heart, Normal: Lungs, Normal: Extremities, Normal: Abdomen, Normal: Skin and Normal: Neurological Plan Diagnosis/Plan: Unchanged I have reviewed the history and physical and performed a pertinent physical examination on my patient. No changes have occurred unless specified. Time Spent With Patient Time: Total time managing care of this patient today ____ minutes.
--- NOTE | 2023-10-27 09:12 | W.PM.OPN ---
Operative Note Operative Note Date of Service: 10/27/23 Narrative: Operative Information Procedure Description: Colonoscopy Indication: screening Anesthesia: MAC COLONOSCOPY Instrument: Olympus variable stiffness pediatric scope 190L Colonoscopy Monitoring: Vital signs and clinical assessment, continuous EKG monitoring, Pulse oximetry, Carbon Dioxide monitoring and blood pressure monitoring were done throughout the procedure. Colon withdrawal time was 16 minutes. Procedure: The patient was placed in the left lateral decubitis position and pre-procedure medications were administered. After a digital rectal examination of the ano-rectum, the video colonoscope was inserted into the rectum and advanced through the colon to the cecum/TI. The colonoscope was slowly withdrawn in a retrograde panoramic fashion and the colon mucosa was carefully examined including a retroflexed view of the rectum. Findings and interventions are described below. Procedure Difficulty: moderate due to tortuous colon Findings: Terminal Ileum-normal Cecum: 10-12 mm sessile polyp lifted with eleview and then removed en bloc with cold snare, x 2 clips applied for hemostasis Ascending Colon: normal Transverse Colon -normal Descending Colon:normal Sigmoid Colon: moderate severe diverticulosis with luminal narrowing and mucosal hypertrophy Rectum: Retroflexion with small internal hemorrhoids, grade I Anorectum - normal Colon preparation: [place] Bowel Preparation Scale Right colon; 2 Transverse colon: 3 Left colon; 3 (0 = Unprepared colon segment with mucosa not seen due to solid stool that cannot be cleared. 1 = Portion of mucosa of the colon segment seen, but other areas of the colon segment not well seen due to staining, residual stool and/or opaque liquid. 2 = Minor amount of residual staining, small fragments of stool and/or opaque liquid, but mucosa of colon segment seen well. 3 = Entire mucosa of colon segment seen well with no residual staining, small fragments of stool or opaque liquid) Impression and Post Procedure Diagnosis: polyps internal hemorrhoids diverticular disease Plan: High fiber diet leaflet Avoid straining at stool, epsom salts and sitz bath, anusol supps or cream Repeat Colonoscopy in 3-4 years due to polyp or earlier if clinically indicated Above findings were reviewed with the patient and relevant handouts were provided if indicated.
[2023-10-27 10:01] VITALS: BP 90/45; PULSE 71; RESP 16; TEMP 36.5; O2SAT 97
[2023-10-27 10:16] VITALS: BP 115/62; PULSE 66; RESP 16; TEMP 36.8; O2SAT 99
[2023-10-27] MEDS: Acetaminophen 325 MG TABLET 650 MG PO (10:34)
== END 2023-10-27 11:26 | disposition home or self-care (01) ==
PROVIDERS: PCP Internal Medicine; Visit Provider Internal Medicine Gastroenterology
PROC: 0DJD8ZZ Inspection of Lower Intestinal Tract, Via Natural or Artificial Opening Endoscopic (ICD-10-PCS; CPT 45378; principal; 2023-10-27 10:30)
DX: Z12.11 Encounter for screening for malignant neoplasm of colon (principal); D12.0 Benign neoplasm of cecum; K57.30 Diverticulosis of large intestine without perforation or abscess without bleeding; K64.0 First degree hemorrhoids; K56.2 Volvulus; K56.699 Other intestinal obstruction unspecified as to partial versus complete obstruction; Z86.010 Personal history of colon polyps; E11.9 Type 2 diabetes mellitus without complications; E78.9 Disorder of lipoprotein metabolism, unspecified; J45.909 Unspecified asthma, uncomplicated; K58.2 Mixed irritable bowel syndrome; K59.04 Chronic idiopathic constipation; Z87.891 Personal history of nicotine dependence
CPT/HCPCS: 45385; 45381; 82947; 88305; J2704

== ENCOUNTER → 2023-10-27 08:22 | Outpatient (BNV) | payer MEDICARE, SELFPAY | PROVIDERS: PCP Internal Medicine; Visit Provider Internal Medicine Gastroenterology | DX: Z12.11 Encounter for screening for malignant neoplasm of colon (principal); D12.0 Benign neoplasm of cecum; K64.0 First degree hemorrhoids; K57.30 Diverticulosis of large intestine without perforation or abscess without bleeding | CPT/HCPCS: 45381; 45385 ==

== ENCOUNTER 2023-11-10 13:20 | Outpatient (AMB) | payer MEDICARE, SELFPAY ==
--- NOTE | 2023-11-10 13:21 | A.OFFVIS_ITS ---
Intake Vital Signs 11/10/23 13:23 Height 5 ft Weight 127 lb 13.89 oz BMI 25.0 BP 120/60 Blood Pressure Location Lt brachial Position Sitting Pulse 73 Intake Visit Reasons: follow up after procedure from 10/27 Intake Note: Ginger presents in the office as a follow up colonoscopy. CC: She states that she is back to having constipation again. Allergies No Known Allergies Allergy (Verified 11/10/23 13:24) HPI follow up after procedure from 10/27 HPI Details LAST VISIT Tubular adenoma Irritable bowel syndrome with both constipation and diarrhea Chronic idiopathic constipation Plan Patient will continue taking Linzess daily. Patient can start taking Dulcolax on as needed basis in the evening to make sure that she empties her bowels completely. Patient was encouraged to take Dulcolax tablets for 1 week before procedure every night and day before procedure she will take 4 tablets at noon time followed by split MiraLax prep. What to expect before during and after the procedure discussed with patient. I will see her after the procedure, sooner on an as-needed basis. Patient is agreeable to this plan and verbalizes understanding of instructions. She was given the opportunity to ask questions and all questions answered. ? Thank you for allowing me to participate in her care her Medications New bisacodyl (Dulcolax (bisacodyl)) 10 mg (2 x 5 mg) PO BEDTIME 180 tabs 4RF polyethylene glycol 3350 (Miralax) As directed by gastroenterology department at [facility] 238 grams PO ONCE 238 grams 0RF Z12.11 COLONOSCOPY Findings: Terminal Ileum-normal Cecum: 10-12 mm sessile polyp lifted with eleview and then removed en bloc with cold snare, x 2 clips applied for hemostasis Ascending Colon: normal Transverse Colon -normal Descending Colon:normal Sigmoid Colon: moderate severe diverticulosis with luminal narrowing and mucosal hypertrophy Rectum: Retroflexion with small internal hemorrhoids, grade I Anorectum - normal Colon preparation: [place] Bowel Preparation Scale Right colon; 2 Transverse colon: 3 Left colon; 3 (0 = Unprepared colon segment with mucos a not seen due to solid stool that cannot be cleared. 1 = Portion of mucosa of the colon segme nt seen, but other areas of the colon segment not well seen due to staining, residual stool and/or opaque liquid. 2 = Minor amount of residual staining, s mall fragments of stool and/or opaque liquid, but mucosa of colon segment seen well. 3 = Entire mucosa of colon segment seen well with no residual staining, small fragments of stool or opaque liquid) Impression and Post Procedure Diagnosis: polyps internal hemorrhoids diverticular disease Plan: High fiber diet leaflet Avoid straining at stool, epsom salts and sitz bath, anusol supps or cream Repeat Colonoscopy in 3-4 years due to polyp or earlier if clinically indicated PATHOLOGY RESULTS: Diagnosis Cecum, polypectomies: Fragments of tubular adenomata; negative for high-grade d ysplasia or carcinoma TODAY'S VISIT: Patient is here today for follow-up and to discuss colonoscopy results. Col onoscopy and biopsy results discussed with patient. Patient denies any ill effects from the prep, anesthesia or procedure itself. One tubular adenoma found in cecum without high-grade dysplasia or carcinoma. Recommendation for 3 year surveillance. Patient continues to be constipated. Patient is taking Linzess every day, however she continues to be constipated. When taking 2 to collapse at bedtime patient has diarrhea following day the whole day. Patient only takes Dulcolax tablets every few days. Patient denies any melena, hematochezia, unintentional weight loss or ribbon like stools. Patient denies any dyspepsia, dysphagia or odynophagia. FORMERLY [facility] Medical History (Updated 11/10/23 @ 20:55 by Evi Watts, [facility]) Diverticulosis Leaking of urine Urinary incontinence in female Menopausal vaginal dryness Tubular adenoma Polycystic kidney disease IBS (irritable bowel syndrome) Breast calcifications Type II diabetes mellitus Insomnia Asthma Depression with anxiety Surgical History Hx of colonoscopy Hx of colonoscopy Family History Father Liver cancer Heart problem Mother Lung cancer Brother Heart problem Diabetes Cardiovascular system problem Substance use disorder Mental health disorder Sister Diabetes Substance use disorder Brother Substance use disorder Social History Household Members: Children Housing: Apartment Are you a primary pharmacy customer care specialist to a significant other at home: No Do you presently have visiting nurse or other home services: No Alcohol intake: never Comment: Tylenol PO given Patient Tobacco Use Status: Former Tobacco user Years Smoked: 15 yrs e-Cigarette/Vaping Use: Never Used Second Hand Smoke Exposure: No service: No Current occupational status: retired Sexual orientation: Straight/Heterosexual Gender identity: Female Cognitive needs: No Hearing needs: No Vision needs: Yes Review of Systems Const Denies weight gain and Denies weight loss ENT Reports no additional complaints, Denies dysphagia and Denies odynophagia Card Reports no additional complaints Resp Reports no additional complaints GI Denies abdominal pain, Denies belching, Denies melena, Denies bloating, Reports constipation, Denies dysphagia, Denies excessive flatus, Denies dyspepsia, Denies heartburn, Denies diarrhea, Denies loose stools, Denies nausea, Denies odynophagia and Denies vomiting Reports no additional complaints Musc Reports no additional complaints Neuro Reports no additional complaints Psych Reports no additional complaints Endo Reports no additional complaints Physical Exam Vital Signs: Last Vital Signs Pulse 73 11/10/23 13:23 BP 120/60 11/10/23 13:23 BMI result Body Mass Index 25.0 Const General: healthy appearing, no acute distress and well developed Nutritional Appearance: well nourished Orientation/consciousness: patient oriented x3 HEENT Head: Yes normal to inspection, Yes normocephalic and Yes atraumatic Face and sinus: Yes normal facial exam Mouth: Normal oral and palatal mucosa present Throat: Yes posterior oropharynx normal, Yes tonsils normal and Yes uvula midline Eyes General: appearance normal, both eyes and all related structures Neck Neck: Yes normal visual inspection, Yes full ROM and Yes trachea midline Thyroid: Thyroid normal Resp Effort & Inspection: normal respiratory effort, able to speak in complete sentences, no tracheal deviation and symmetric chest movement Auscultation: clear to auscultation bilaterally Cardio Rate: regular rate Heart sounds: no murmurs GI Inspection: Yes normal to inspection and No distended Palpation (GI): Soft to palpation, not firm, nontender and No hepatosplenomegaly present Auscultation: normal bowel sounds General: Yes no CVA tenderness Back/Spine/Pelvis Back: no CVA tenderness Skin General skin exam: elasticity normal, turgor normal and dry skin Neuro General: patient oriented x3 Psych Appearance: grossly normal Mental Status: mental status grossly normal Thought content: Normal thought content present Assessment & Plan Assessment & Plan (1) Tubular adenoma: Code(s): D36.9 - Benign neoplasm, unspecified site (2) Irritable bowel syndrome with both constipation and diarrhea: Code(s): K58.2 - Mixed irritable bowel syndrome (3) Diverticulosis: Code(s): K57.90 - Diverticulosis of intestine, part unspecified, without perforation or abscess without bleeding (4) Chronic idiopathic constipation: Code(s): K59.04 - Chronic idiopathic constipation Plan Tubular adenoma found in cecum without high-grade dysplasia or carcinoma. Patient will repeat colonoscopy in 3 years, sooner if clinically necessary. Patient continues to be constipated. Patient is taking Linzess every day. Patient states that if she takes too Dulcolax tablets she will have cramps and will have loose stools the next day all day. Patient can take 1 Dulcolax tablet daily and then increase to 2 tablets every other day. Patient was also encouraged to drink plenty fluids throughout the day, increase activity to promote better bowel motility. Patient was given list of food high in fiber. Diagnosed with diverticulosis. Continue fiber supplements and probiotics. Follow-up in 1 year, sooner on as needed basis. She is agreeable to this plan and verbalizes understanding of instructions. She was given the opportunity to ask questions and all questions answered. Thank you for allowing me to participate in her care Coding Level of Care Code Est Pt Level 3 (68379) Diagnoses Tubular adenoma D36.9 Irritable bowel syndrome with both constipation and diarrhea K58.2 Diverticulosis K57.90 Chronic idiopathic constipation K59.04 Time Spent (min) 30 Comment 20 minutes spent with patient and additional 10 minutes spent reviewing her records
[2023-11-10 13:23] VITALS: BP 120/60; PULSE 73; BMI 25.0
== END 2023-11-10 14:03 | disposition home or self-care (01) ==
PROVIDERS: PCP Internal Medicine; Referring Provider Internal Medicine; Visit Provider Nurse Practitioner Family
DX: D36.9 Benign neoplasm, unspecified site (principal); K58.2 Mixed irritable bowel syndrome; K57.90 Diverticulosis of intestine, part unspecified, without perforation or abscess without bleeding; K59.04 Chronic idiopathic constipation
CPT/HCPCS: 99213

== ENCOUNTER → 2023-11-10 13:20 | Outpatient (BNVA) | payer MEDICARE, SELFPAY | PROVIDERS: PCP Internal Medicine; Visit Provider Nurse Practitioner Family | DX: D12.0 Benign neoplasm of cecum (principal); K58.2 Mixed irritable bowel syndrome; K57.30 Diverticulosis of large intestine without perforation or abscess without bleeding; K59.04 Chronic idiopathic constipation; Z98.890 Other specified postprocedural states | CPT/HCPCS: 99212 ==

== ENCOUNTER 2023-12-16 08:37 | Outpatient (AMB) | payer MEDICARE, SELFPAY ==
--- NOTE | 2023-12-16 09:59 | A.OFFPC_ITS ---
Intake Visit Reasons: Discuss Mammo~ Allergies No Known Allergies Allergy (Verified 12/16/23 10:01) Medication List - Last Reconciled 12/16/23 by Any Jaffe MD bisacodyl (Dulcolax (bisacodyl)) 10 mg (2 x 5 mg) PO BEDTIME docusate sodium (Colace) 100 mg PO DAILY ibuprofen 200 mg PO Q6H PRN lactobacillus combination no.4 (Probiotic) 1 capsule PO daily; administer with a meal 30 days linaclotide (Linzess) 290 mcg PO QAM paroxetine HCl 40 mg PO DAILY simvastatin 40 mg PO BEDTIME trazodone 50 mg PO BEDTIME PRN Tobacco use date assessed: 12/16/23 Fall risk assessment: 1 Fall in past year Last assessed Fall Risk: 12/16/23 Dental Screening Dental Screen Date: 12/16/23 Did you have a dental visit in the last 12 months?: Yes Did you have a dental problem in the last 6 months where you did not have access to dental care?: No Was dental information given to patient?: Patient has dentist HPI Discuss Mammo~ HPI Details Patient is 68-year-old female, this is a telemedicine visit Patient picked up the telephone but she was in [place] having another appointment, however needed MRI of her breasts Patient had mammogram done which showed -3 groups of nonspecific indeterminate c alcifications in the outer left breast are stable without aggressive change and remain probably benign. -Single group of calcifications in the m edial left breast are unchanged from 2017 and benign. No further follow-up recommended. -Calcified mass at the 7:00 axis right b reast, mid depth, likely benign process such as a degenerating fibroadenoma is unchanged. One-year follow-up advised to ensure stability. -Stable post lumpectomy changes upper ou ter left breast. -Given high risk of this patient and mul tiple findings, along with heterogeneously dense nodular breast parenchyma, screening breast MRI would be a beneficial screening adjunct. This was discussed with the patient. I feel that MRI of breast is needed , order placed ON LICENSE OF [facility] Medical History Diverticulosis Leaking of urine Urinary incontinence in female Menopausal vaginal dryness Tubular adenoma Polycystic kidney disease IBS (irritable bowel syndrome) Breast calcifications Type II diabetes mellitus Insomnia Asthma Depression with anxiety Surgical History Hx of colonoscopy Hx of colonoscopy Family History Father Liver cancer Heart problem Mother Lung cancer Brother Heart problem Diabetes Cardiovascular system problem Substance use disorder Mental health disorder Sister Diabetes Substance use disorder Brother Substance use disorder Social History Household Members: Children Housing: Apartment Are you a primary career development counselor to a significant other at home: No Do you presently have visiting nurse or other home services: No Alcohol intake: never Comment: Tylenol PO given Patient Tobacco Use Status: Former Tobacco user Years Smoked: 15 yrs e-Cigarette/Vaping Use: Never Used Second Hand Smoke Exposure: No service: No Current occupational status: retired Sexual orientation: Straight/Heterosexual Gender identity: Female Cognitive needs: No Hearing needs: No Vision needs: Yes Questionnaire Thrive Questionnaire Date Thrive assessed: 09/22/23 AUDIT C Alcohol Use Questionnaire (AUDIT-C) 1. How often do you have a drink containing alcohol?: Never 3. How often do you have six or more drinks on one occasion?: Never Total Score: 0 Score Reviewed/Action Taken: Yes KATHY-7 AMB Questionnaire KATHY-7 Date KATHY - 7 assessed: 09/22/23 Source: Developed by Drs. Theo Navas, Marla Brooks, Abdi Kruse and colleagues, with an educational dave from [employer]. Review of Systems Const Details: Negative except as listed in HPI Physical exam (Primary Care) Tobacco/Smoking Status: Tobacco use Status Tobacco use date assessed 12/16/23 12/16/23 10:01 Patient Tobacco Use Status Former Tobacco user 12/16/23 10:01 e-Cigarette/Vaping Use Never Used 12/16/23 10:01 Thrive Assessment: Date of Thrive Assessment Date Thrive assessed 09/22/23 12/16/23 10:01 Telehealth Telehealth Location of provider rendering services: practice address Location of patient: address on file Patient Identification confirmed using: Name, : Yes Telehealth method: voice only Patient verbally consented to treatment: Yes Patient verbally consented to billing insurance company: Yes Patient informed of any privacy concerns related to visit: Yes Minutes spent on Phone/Video with Pt.: 12 Assessment and Plan Assessment & Plan (1) Dense breasts: Code(s): R92.30 - Dense breasts, unspecified (2) Breast calcifications on mammogram: Code(s): R92.1 - Mammographic calcification found on diagnostic imaging of breast Plan Patient had mammogram done which showed -3 groups of nonspecific indeterminate calcifications in the outer left breast are stable without aggressive change and remain probably benign. -Single group of calcifications in the medial left breast are unchanged from 2017 and benign. No further follow-up recommended. -Calcified mass at the 7:00 axis right breast, mid depth, likely benign process such as a degenerating fibroadenoma is unchanged. One-year follow-up advised to ensure stability. -Stable post lumpectomy changes upper outer left breast. -Given high risk of this patient and multiple findings, along with heterogeneously dense nodular breast parenchyma, screening breast MRI would be a beneficial screening adjunct. This was discussed with the patient. I feel that MRI of breast need to be done, order placed Orders: Orders MR breast BI wo con 12/16/23 R92.1 - Mammographic calcification found on diagnostic imaging of breast, R92.30 - Dense breasts, unspecified Coding Level of Care Code Tele Est Pt Level 3 (61824) Diagnoses Dense breasts R92.30 Breast calcifications on mammogram R92.1
== END 2023-12-16 13:26 | disposition home or self-care (01) ==
LOC: HO.HMGC 08:37
PROVIDERS: PCP Internal Medicine; Visit Provider Internal Medicine
DX: R92.30 Dense breasts, unspecified (principal); R92.1 Mammographic calcification found on diagnostic imaging of breast
CPT/HCPCS: 99442

== ENCOUNTER 2024-01-15 14:29 | Outpatient (REF) | payer MEDICARE, SELFPAY ==
--- NOTE | ~2024-01-15 | MR_ITS ---
EXAMINATION: MR BREAST WITHOUT AND WITH CONTRAST, BILATERAL CLINICAL INFORMATION: 68-year-old patient referred for breast MRI due to dense breasts. Further review of prior studies indicates patient is undergoing follow-up for calcifications in both breasts, 3 groups left breast and one group right breast. Personal history of left breast excisional biopsy upper outer quadrant for LCIS. History of calcified mass right breast 7:00 position. COMPARISON: 09/09/2023, 03/05/2023, 08/28/2022, 03/04/2022, 02/15/2022, 02/12/2021 mammogram TECHNIQUE: Imaging was performed with a dedicated breast coil. Prior to the administration of contrast, bilateral axial T1 and bilateral axial T2 weighted sequences were obtained. After the uneventful administration of?5.5 mL of Gadavist, dynamic contrast-enhanced VIBRANT series through the breasts in the axial plane were performed. Subtracted images were performed and reviewed. A delayed sagittal sequence through both breasts was acquired. Additionally, CAD post-processing, including maximum intensity projections, 3-D reconstructions and kinetic analysis, were performed an independent workstation and reviewed by the interpreting radiologist is a portion of this exam. FINDINGS: Composition of the breasts is of heterogeneous fibroglandular tissues. The patient's fibroglandular tissue demonstrates moderate background enhancement. LEFT BREAST: Left superior breast signal void/biopsy clip (sagittal 26/100) with no associated enhancement. Left breast upper outer quadrant mild postsurgical distortion with no associated enhancement. Scattered foci of enhancement. No rapidly enhancing suspicious masses or other MR abnormalities.. RIGHT BREAST: Right superior breast signal void/biopsy clip with no associated suspicious enhancement (sagittal 76/100). Right breast 7:00 position oval circumscribed persistently enhancing mass measuring 1.2 x 1.1 x 0.7 cm (axial 73/102, sagittal 75/100) appears to correlate to a stable mammographic mass unchanged since 2020. This mass is undergoing mammographic follow-up. No suspicious rapidly enhancing masses or other MR abnormalities. There is no suspicious internal mammary chain or axillary adenopathy. Limited views of the chest and abdomen demonstrate a few T2 hyperintense nonenhancing hepatic cysts.. MR/MR breast BI wo/w con IMPRESSION: Right breast 7:00 position oval circumscribed mass has a mammographic correlate which has demonstrated stability. The mass is undergoing mammographic follow-up. No MR follow-up is required. No MR evidence for malignancy in either breast. ASSESSMENT: LEFT BREAST: BI-RADS 2: Benign RIGHT BREAST: BI-RADS 2: Benign RECOMMENDATIONS: Mammogram as per most recent prior report. Annual breast MRI if lifetime risk for breast cancer is greater than 20%.
[2024-01-21] MEDS: gadobutroL 7.5 ML VIAL IVPUSH (12:12)
== END 2024-01-15 14:30 | disposition home or self-care (01) ==
LOC: HO.MRI 14:29
PROVIDERS: PCP Internal Medicine; Visit Provider Internal Medicine
DX: R92.30 Dense breasts, unspecified (principal)
CPT/HCPCS: 77047; 77049; A9585

== ENCOUNTER 2024-01-22 10:01 | Outpatient (AMB) | payer MEDICARE, SELFPAY ==
--- NOTE | 2024-01-22 10:07 | MHC.PC.OV ---
Vital Signs 01/22/24 10:11 Height 5 ft Weight 126 lb 8 oz BMI 24.7 BP 120/62 Blood Pressure Location Lt brachial Position Sitting Pulse 75 Pulse Source Pulse Oximeter Pulse Oximetry (%) 95 Oxygen Delivery Method Room Air Intake Visit Reasons: 4 Month follow up Allergies No Known Allergies Allergy (Verified 01/22/24 10:13) Medication List - Last Reviewed 01/22/24 by Madhav Park MA docusate sodium (Colace) 100 mg PO DAILY ibuprofen 200 mg PO Q6H PRN lactobacillus combination no.4 (Probiotic) 1 capsule PO daily; administer with a meal 30 days paroxetine HCl 40 mg PO DAILY simvastatin 40 mg PO BEDTIME trazodone 50 mg PO BEDTIME PRN Tobacco use date assessed: 01/22/24 Fall risk assessment: No Falls in past year Last assessed Fall Risk: 01/22/24 Dental Screening Dental Screen Date: 01/22/24 Did you have a dental visit in the last 12 months?: Yes Did you have a dental problem in the last 6 months where you did not have access to dental care?: No Was dental information given to patient?: Patient has dentist HPI 4 Month follow up HPI Details Patient is 68-year-old female came in today for her regular follow-up visit Last time she had labs her white count was slightly low we will be monitoring that Diabetes mellitus: diet controlled due for hemoglobin check Depression:? She is on paroxetine 40 mg once a day.? Doing well at this time ? Sleeping difficulty: Patient is on trazodone 50 mg, medication is helping her ? Asthma:? Continue ProAir as needed Lipid disorder: continue simvastatin 40 mg. Other providers patient has seen is Dr. Jean neurology , MRI of brain was done no acute findings other than slight atrophy Follow-up 4 months PFSH Medical History Diverticulosis Leaking of urine Urinary incontinence in female Menopausal vaginal dryness Tubular adenoma Polycystic kidney disease IBS (irritable bowel syndrome) Breast calcifications Type II diabetes mellitus Insomnia Asthma Depression with anxiety Surgical History Hx of colonoscopy Hx of colonoscopy Family History Father Liver cancer Heart problem Mother Lung cancer Brother Heart problem Diabetes Cardiovascular system problem Substance use disorder Mental health disorder Sister Diabetes Substance use disorder Brother Substance use disorder Social History Household Members: Children Housing: Apartment Are you a primary rn wound care to a significant other at home: No Do you presently have visiting nurse or other home services: No Alcohol intake: never Comment: Tylenol PO given Patient Tobacco Use Status: Former Tobacco user Years Smoked: 15 yrs e-Cigarette/Vaping Use: Never Used Second Hand Smoke Exposure: No service: No Current occupational status: retired Sexual orientation: Straight/Heterosexual Gender identity: Female Cognitive needs: No Hearing needs: No Vision needs: Yes Questionnaire PHQ-9 Over the last 2 weeks, how often have you been bothered by any of the following problems? 1. Little interest or pleasure in doing things: several days 2. Feeling down, depressed, or hopeless: several days 3. Trouble falling or staying asleep, or sleeping too much: several days 4. Feeling tired or having little energy: several days 5. Poor appetite or overeating: not at all 6. Feeling bad about yourself - or that you are a failure or have let yourself or your family down: not at all 7. Trouble concentrating on things, such as reading the newspaper or watching television: several days 8. Moving or speaking so slowly that other people could have noticed. Or the opposite - being so fidgety or restless that you have been moving around a lot more than usual: not at all 9. Thoughts that you would be better off or of hurting yourself in some way: not at all Total score: 5 Depression Screening Interpretation: Negative Depression Screening Done: Yes 51670 - PHQ-9 Billing: Yes Source: Developed by Drs. Theo Navas, Marla Brooks, Abdi Kruse and colleagues, with an educational dave from [employer] Thrive Questionnaire Date Thrive assessed: 01/22/24 I am a: Patient What is your living situation today?: I have a steady place to live Within the past 12 months, did the food you bought not last and you didn't have the money to get more?: Never true Within the past 12 months, did you worry whether your food would run out before you got money to buy more?: Never true Do you have trouble paying for medicines?: No Do you have trouble getting transportation to medical appointments?: No Do you have trouble paying your heating and electricity bill?: No Do you have trouble taking care of your child, family member or friend?: No Do you have trouble with day-to-day activities such as bathing, preparing meals, shopping, managing finances, etc.?: No Are you currently unemployed and looking for a job?: No Are you interested in more education?: No Please select the resources that you would like help with: None Currently or been in a relationship where the following occur: no concerns reported THRIVE Score: 0 KATHY-7 AMB Questionnaire KATHY-7 Date KATHY - 7 assessed: 01/22/24 Feeling nervous, anxious, or on edge: 1 = Several days Not being able to stop or control worryin = Several days Worrying too much about different things: 1 = Several days Trouble relaxin = Several days Being so restless that it is hard to sit still: 1 = Several days Becoming easily annoyed or irritable: 0 = Not at all Feeling afraid as if something awful might happen: 1 = Several days Total KATHY-7 score (0-4 normal; 5-9 mild; 10-14 moderate; 15-21 severe): 6 Source: Developed by Drs. Theo Navas, Marla Brooks, Abdi Kruse and colleagues, with an educational dave from [employer] KATHY-7 Assessment Billing KATHY-7 Assessment Tool: KATHY-7 Assessment 48610 Review of Systems Const Denies chills and Denies fever(s) ENT Denies epistaxis and Denies nasal discharge Card Denies chest pain Resp Denies chest congestion, Denies cough and Denies hemoptysis GI Denies diarrhea and Denies nausea Skin/Breast Denies rash Neuro Reports no additional complaints Psych Reports no additional complaints Endo Reports no additional complaints Physical exam (Primary Care) Vital Signs: Last Vital Signs Pulse 75 01/22/24 10:11 BP 120/62 01/22/24 10:11 Pulse Ox 95 01/22/24 10:11 Oxygen Delivery Method Room Air 01/22/24 10:11 BMI result Body Mass Index 24.7 Tobacco/Smoking Status: Tobacco use Status Tobacco use date assessed 01/22/24 01/22/24 10:17 Patient Tobacco Use Status Former Tobacco user 01/22/24 10:08 e-Cigarette/Vaping Use Never Used 01/22/24 10:08 PHQ-9: PHQ-9 Score PHQ-9: Total score 5 01/22/24 10:31 Depression Screening Interpretation: Negative Thrive Assessment: Date of Thrive Assessment Date Thrive assessed 01/22/24 01/22/24 10:17 Currently or been in a relationship where the following occur: no concerns reported Const General: cooperative, comfortable and no acute distress Orientation/consciousness: patient oriented x3 HENMT Head: Yes normocephalic Eyes General: appearance normal, both eyes and all related structures Neck Neck: Yes supple Resp Effort & Inspection: normal respiratory effort, no cough and no stridor Cardio Rhythm: regular rhythm Heart sounds: S1 normal heart sound present and S2 normal heart sound present Skin General skin exam: turgor normal Neuro General: patient oriented x3, tone normal and moves all extremities Extrem Right lower extremity: no edema Left lower extremity: no edema Assessment and Plan Assessment & Plan (1) Diabetes mellitus type 2 in nonobese: Code(s): E11.9 - Type 2 diabetes mellitus without complications (2) Lipid disorder: Code(s): E78.9 - Disorder of lipoprotein metabolism, unspecified (3) Difficulty sleeping: Code(s): G47.9 - Sleep disorder, unspecified (4) Anxiety, generalized: Code(s): F41.1 - Generalized anxiety disorder (5) Depression, major, recurrent, mild: Code(s): F33.0 - Major depressive disorder, recurrent, mild (6) Irritable bowel syndrome with both constipation and diarrhea: Code(s): K58.2 - Mixed irritable bowel syndrome (7) Brain atrophy: Code(s): G31.9 - Degenerative disease of nervous system, unspecified (8) Neutropenia: Code(s): D70.9 - Neutropenia, unspecified Qualifiers: Neutropenia type: unspecified Qualified Code(s): D70.9 - Neutropenia, unspecified Plan Patient is 68-year-old female came in today for her regular follow-up visit Last time she had labs her white count was slightly low we will be monitoring that Diabetes mellitus: diet controlled due for hemoglobin check Depression:? She is on paroxetine 40 mg once a day.? Doing well at this time ? Sleeping difficulty: Patient is on trazodone 50 mg, medication is helping her ? Asthma:? Continue ProAir as needed Lipid disorder: continue simvastatin 40 mg. IBS stable Other providers patient has seen is Dr. Jean neurology , MRI of brain was done no acute findings other than slight atrophy Follow-up 4 months Orders: Orders Complete Blood Count Auto Diff Today E11.9 - Type 2 diabetes mellitus without complications, E78.9 - Disorder of lipoprotein metabolism, unspecified, G25.81 - Restless legs syndrome, G47.9 - Sleep disorder, unspecified, J45.909 - Unspecified asthma, uncomplicated, K57.90 - Diverticulosis of intestine, part unspecified, without perforation or abscess without bleeding, K58.2 - Mixed irritable bowel syndrome Hemoglobin A1c Today E11.9 - Type 2 diabetes mellitus without complications Comprehensive Met. Panel Today E11.9 - Type 2 diabetes mellitus without complications, E78.9 - Disorder of lipoprotein metabolism, unspecified, G25.81 - Restless legs syndrome, G47.9 - Sleep disorder, unspecified, J45.909 - Unspecified asthma, uncomplicated, K57.90 - Diverticulosis of intestine, part unspecified, without perforation or abscess without bleeding, K58.2 - Mixed irritable bowel syndrome Microalbumin, Random (w Creat) Today E11.9 - Type 2 diabetes mellitus without complications Medications: New cholecalciferol (vitamin D3) 25 mcg PO DAILY 90 caps 0RF 90 days Coding Level of Care Code Est Pt Level 4 (00578) Diagnoses Diabetes mellitus type 2 in nonobese E11.9 Lipid disorder E78.9 Difficulty sleeping G47.9 Anxiety, generalized F41.1 Depression, major, recurrent, mild F33.0 Irritable bowel syndrome with both constipation and diarrhea K58.2 Brain atrophy G31.9 Neutropenia, unspecified type D70.9 Neutropenia type: unspecified Additional Codes KATHY-7 Assessment Billing - KATHY-7 Assessment Tool: KATHY-7 Assessment 45332 ([id number])
[2024-01-22 10:11] VITALS: BP 120/62; PULSE 75; O2SAT 95; BMI 24.7
== END 2024-01-22 10:28 | disposition home or self-care (01) ==
PROVIDERS: PCP Internal Medicine; Visit Provider Internal Medicine
DX: E11.9 Type 2 diabetes mellitus without complications (principal); F33.0 Major depressive disorder, recurrent, mild; G31.9 Degenerative disease of nervous system, unspecified; D70.9 Neutropenia, unspecified; E78.9 Disorder of lipoprotein metabolism, unspecified; G47.9 Sleep disorder, unspecified; F41.1 Generalized anxiety disorder; K58.2 Mixed irritable bowel syndrome
CPT/HCPCS: 96127; 99214

== ENCOUNTER 2024-01-22 10:29 | Outpatient (REF) | payer MEDICARE, SELFPAY ==
[2024-01-22 13:18] LABS: MANUAL DIFF FLAG NO
[2024-01-22 13:31] LABS: Basophils Percent Auto 0.2 % (0-2); Eosinophils Absolute Auto 0.1 X10*3/uL (0.0-0.4); Eosinophils Percent Auto 1.4 % (0-4); Hematocrit 42.5 % (37.0-47.0); Imm Gran Abs Auto 0.01 X10*3/uL (0.00-0.03); Imm Gran Pct Auto 0.2 % (0.0-0.4); Lymphocytes Absolute Auto 1.3 X10*3/uL (1.2-4.9); Lymphocytes Percent Auto 30.1 % (20-40); Mean Corpuscular HGB Conc 32.9 g/dl (31.0-35.0); Mean Corpuscular Hemoglobin 29.6 pg (27.0-33.0); Mean Corpuscular Volume 89.9 fL (80.0-98.0); Mean Platelet Volume 11.3 fL (9.4-12.3); Monocytes Absolute Auto 0.5 X10*3/uL (0.1-1.2); Monocytes Percent Auto 10.3 % (2-11); Neutrophils Absolute Auto 2.5 x10*3/uL (2.0-8.3); Neutrophils Percent Auto 57.8 % (45-73); Platelet Count 165 X10*3/uL (160-400); Red Blood Count 4.73 X10*6/uL (4.20-5.50); Red Cell Distribution Width 12.6 % (11.0-16.0); White Blood Count 4.4 X10*3/uL (4.8-10.8)
[2024-01-22 13:39] LABS: Estimated Average Glucose 128 mg/dL; Hemoglobin A1c % 6.1 % (<6.0)
[2024-01-22 13:52] LABS: Alanine Aminotransferase 19 U/L (0-31); Albumin Level 3.8 g/dL (3.5-5.0); Alkaline Phosphatase 86 U/L (39-117); Anion Gap 9 (12-20); Aspartate Amino Transferase 16 U/L (5-31); Bilirubin Total 1.1 mg/dL (0.0-1.0); Blood Urea Nitrogen 12 mg/dL (9-16); Calcium 9.2 mg/dL (8.4-10.2); Carbon Dioxide 31 mmol/L (22-29); Chloride 107 mmol/L (96-108); Estimated Glomerular Filt Rate 55; Glucose Random 178 mg/dL (60-115); Potassium 3.6 mmol/L (3.3-5.1); Sodium 143 mmol/L (135-145); Total Protein 6.3 g/dL (6.5-8.0)
[2024-01-22 14:28] LABS: Creatinine Urine 76.95 mg/dL; Microalbum/Creatinine Ratio Ur 6.4 ug/mg cr (<30)
== END 2024-01-22 10:30 | disposition home or self-care (01) ==
LOC: HO.HMGCLDS 10:29
PROVIDERS: PCP Internal Medicine; Visit Provider Internal Medicine
DX: E11.9 Type 2 diabetes mellitus without complications (principal); E78.9 Disorder of lipoprotein metabolism, unspecified; G47.9 Sleep disorder, unspecified; J45.909 Unspecified asthma, uncomplicated; K58.2 Mixed irritable bowel syndrome; G25.81 Restless legs syndrome; K57.90 Diverticulosis of intestine, part unspecified, without perforation or abscess without bleeding
CPT/HCPCS: 36415; 80053; 82043; 82570; 83036; 85025

== ENCOUNTER → 2024-03-16 13:00 | Outpatient (BNV) | payer MEDICARE, SELFPAY | PROVIDERS: PCP Internal Medicine; Visit Provider Radiology Diagnostic Radiology | DX: R92.1 Mammographic calcification found on diagnostic imaging of breast (principal) | CPT/HCPCS: 77065 ==

== ENCOUNTER 2024-03-16 13:08 | Outpatient (REF) | payer MEDICARE, SELFPAY ==
--- NOTE | ~2024-03-16 | MM_ITS ---
EXAMINATION: MM DIAGNOSTIC DIGITAL MAMMOGRAPHY, LEFT CLINICAL INFORMATION: 6 month Follow-up 3 groups of calcifications left breast. Left breast prior history of LCIS with prior TC score of 39%. COMPARISON: Mammography: 09/09/2023, 03/05/2023, 09/05/2022, 02/15/2022 (BI-RADS 0), and dating back to 2018. MR breasts with gadolinium 01/15/2024. (Showing no evidence of malignancy in either breast) TECHNIQUE: Digital mammography is performed in the following views: Left 2-D spot magnification views in the CC x2, and ML x1 FINDINGS: The breasts are extremely dense, which lowers the sensitivity of mammography (ACR BI-RADS breast composition Category d). Spot magnification views demonstrate no interval aggressive change of 3 groups of faint calcifications in the left breast upper outer quadrant. These have remained stable since 02/15/2022, have grossly benign nonaggressive morphology, and given normal MR breast 01/15/2024 with no suspicious non-masslike enhancement, can be considered benign. There are no findings suspicious for malignancy in the left breast. MM/MM diagnostic mammo unilat LT IMPRESSION: -No findings suspicious for malignancy left breast. Calcifications in the left breast upper outer quadrant which have been followed from 02/15/2022 are benign and require no further follow-up. -MRI of 01/15/2024 demonstrated no evidence of malignancy in either breast. No suspicious enhancement. -Recommend the patient resume routine annual screening mammography in September 2024 to include both breasts. ASSESSMENT: BI-RADS BI-RADS 2 - Benign Findings RECOMMENDATION: 1 year F/U This patient's information was entered into a reminder system with a target due date for their next mammogram.
== END 2024-03-16 13:09 | disposition home or self-care (01) ==
LOC: HO.MAMMO 13:08
PROVIDERS: PCP Internal Medicine; Visit Provider Internal Medicine
DX: R92.1 Mammographic calcification found on diagnostic imaging of breast (principal)
CPT/HCPCS: 77062; 77065

== ENCOUNTER 2024-05-27 10:54 | Outpatient (AMB) | payer MEDICARE, SELFPAY ==
[2024-05-27 10:57] VITALS: BP 128/76; PULSE 70; O2SAT 94; BMI 24.7
--- NOTE | 2024-05-27 10:57 | A.OFFPC_ITS ---
Vital Signs 05/27/24 10:57 Height 5 ft Weight 126 lb 8 oz BMI 24.7 BP 128/76 Blood Pressure Location Rt brachial Position Sitting Pulse 70 Pulse Source Pulse Oximeter Pulse Oximetry (%) 94 Oxygen Delivery Method Room Air Intake Visit Reasons: Reschd from 05/24/24 Allergies No Known Allergies Allergy (Verified 05/27/24 10:57) Medication List - Last Reconciled 05/27/24 by Any Jaffe MD cholecalciferol (vitamin D3) 25 mcg PO DAILY 90 days docusate sodium (Colace) 100 mg PO DAILY ibuprofen 200 mg PO Q6H PRN lactobacillus combination no.4 (Probiotic) 1 capsule PO daily; administer with a meal 30 days paroxetine HCl 40 mg PO DAILY simvastatin 40 mg PO BEDTIME trazodone 50 mg PO BEDTIME PRN Tobacco use date assessed: 05/27/24 Last assessed Fall Risk: 05/27/24 Dental Screening Dental Screen Date: 05/27/24 Did you have a dental visit in the last 12 months?: Yes Did you have a dental problem in the last 6 months where you did not have access to dental care?: No Was dental information given to patient?: Patient has dentist HPI Reschd from 05/24/24 HPI Details Patient is 69-year-old female came in today for her regular follow-up visit and preop clearance for cataract surgery left eye on 06/22/[facility] Fr[facility] Patient is doing well and is in her usual state of health Diabetes mellitus: diet controlled last set of lab was January, new set of order placed to be done in July Depression:? She is on paroxetine 40 mg once a day.? Doing well at this time ? Sleeping difficulty: Patient is on trazodone 50 mg, medication is helping her ? Asthma:? Continue ProAir as needed, lungs are clear Lipid disorder: continue simvastatin 40 mg. IBS stable, however having breakthrough diarrhea which is uncontrollable about 2 times a week She said that she will discuss it further with Gastroenterology Other providers patient has seen is Dr. Jean neurology , MRI of brain was done no acute findings other than slight atrophy Patient has appointment in October for physical exam Patient is stable for cataract surgery We will fax a note over at [phone] Zaida MORGAN Medical History Diverticulosis Leaking of urine Urinary incontinence in female Menopausal vaginal dryness Tubular adenoma Polycystic kidney disease IBS (irritable bowel syndrome) Breast calcifications Type II diabetes mellitus Insomnia Asthma Depression with anxiety Surgical History Hx of colonoscopy Hx of colonoscopy Family History Father Liver cancer Heart problem Mother Lung cancer Brother Heart problem Diabetes Cardiovascular system problem Substance use disorder Mental health disorder Sister Diabetes Substance use disorder Brother Substance use disorder Social History Household Members: Children Housing: Apartment Are you a primary customer care professional to a significant other at home: No Do you presently have visiting nurse or other home services: No Alcohol intake: never Comment: Tylenol PO given Patient Tobacco Use Status: Former Tobacco user Years Smoked: 15 yrs e-Cigarette/Vaping Use: Never Used Second Hand Smoke Exposure: No service: No Current occupational status: retired Sexual orientation: Straight/Heterosexual Gender identity: Female Cognitive needs: No Hearing needs: No Vision needs: Yes Questionnaire PHQ-9 Over the last 2 weeks, how often have you been bothered by any of the following problems? 1. Little interest or pleasure in doing things: not at all 2. Feeling down, depressed, or hopeless: not at all 3. Trouble falling or staying asleep, or sleeping too much: not at all 4. Feeling tired or having little energy: not at all 5. Poor appetite or overeating: not at all 6. Feeling bad about yourself - or that you are a failure or have let yourself or your family down: not at all 7. Trouble concentrating on things, such as reading the newspaper or watching television: not at all 8. Moving or speaking so slowly that other people could have noticed. Or the opposite - being so fidgety or restless that you have been moving around a lot more than usual: not at all 9. Thoughts that you would be better off or of hurting yourself in some way: not at all Total score: 0 Depression Screening Interpretation: Negative Depression Screening Done: Yes 37716 - PHQ-9 Billing: Yes Source: Developed by Drs. Theo Navas, Marla Brooks, Abdi Kruse and colleagues, with an educational dave from [employer] (formerly [employer]). Thrive Questionnaire Date Thrive assessed: 05/27/24 I am a: Patient What is your living situation today?: I have a steady place to live Within the past 12 months, did the food you bought not last and you didn't have the money to get more?: Never true Within the past 12 months, did you worry whether your food would run out before you got money to buy more?: Never true Do you have trouble paying for medicines?: No Do you have trouble getting transportation to medical appointments?: No Do you have trouble paying your heating and electricity bill?: No Do you have trouble taking care of your child, family member or friend?: No Do you have trouble with day-to-day activities such as bathing, preparing meals, shopping, managing finances, etc.?: No Are you currently unemployed and looking for a job?: No Are you interested in more education?: No Please select the resources that you would like help with: Housing/Snf Currently or been in a relationship where the following occur: No concerns reported THRIVE Score: 0 AUDIT C Alcohol Use Questionnaire (AUDIT-C) 1. How often do you have a drink containing alcohol?: Monthly or less 2. How many drinks containing alcohol do you have on a typical day when you are drinking?: 1 or 2 3. How often do you have six or more drinks on one occasion?: Never Total Score: 1 Score Reviewed/Action Taken: Yes KATHY-7 AMB Questionnaire KATHY-7 Date KATHY - 7 assessed: 05/27/24 Feeling nervous, anxious, or on edge: 0 = Not at all Not being able to stop or control worryin = Not at all Worrying too much about different things: 0 = Not at all Trouble relaxin = Not at all Being so restless that it is hard to sit still: 0 = Not at all Becoming easily annoyed or irritable: 0 = Not at all Feeling afraid as if something awful might happen: 0 = Not at all Total KATHY-7 score (0-4 normal; 5-9 mild; 10-14 moderate; 15-21 severe): 0 Source: Developed by Eddie Pecket B.W. Todd, Abdi Kruse and colleagues, with an educational dave from [employer] (formerly [employer]). KATHY-7 Assessment Billing KATHY-7 Assessment Tool: KATHY-7 Assessment 75063 Review of Systems Const Denies chills and Denies fever(s) ENT Denies epistaxis and Denies nasal discharge Card Denies chest pain Resp Denies chest congestion, Denies cough and Denies hemoptysis GI Denies diarrhea and Denies nausea Skin/Breast Denies rash Neuro Reports no additional complaints Psych Reports no additional complaints Endo Reports no additional complaints Physical exam (Primary Care) Vital Signs: Last Vital Signs Pulse 70 05/27/24 10:57 BP 128/76 05/27/24 10:57 Pulse Ox 94 05/27/24 10:57 Oxygen Delivery Method Room Air 05/27/24 10:57 BMI result Body Mass Index 24.7 Tobacco/Smoking Status: Tobacco use Status Tobacco use date assessed 05/27/24 05/27/24 11:02 Patient Tobacco Use Status Former Tobacco user 05/27/24 11:02 e-Cigarette/Vaping Use Never Used 05/27/24 11:02 PHQ-9: PHQ-9 Score PHQ-9: Total score 0 05/27/24 11:02 Depression Screening Interpretation: Negative Thrive Assessment: Date of Thrive Assessment Date Thrive assessed 05/27/24 05/27/24 11:02 Currently or been in a relationship where the following occur: No concerns reported Const General: cooperative, comfortable and no acute distress Orientation/consciousness: patient oriented x3 HENMT Head: Yes normocephalic Eyes General: appearance normal, both eyes and all related structures Neck Neck: Yes supple Resp Effort & Inspection: normal respiratory effort, no cough and no stridor Cardio Rhythm: regular rhythm Heart sounds: S1 normal heart sound present and S2 normal heart sound present Skin General skin exam: turgor normal Neuro General: patient oriented x3, tone normal and moves all extremities Extrem Right lower extremity: no edema Left lower extremity: no edema Assessment and Plan Assessment & Plan (1) Pre-op evaluation: Code(s): Z01.818 - Encounter for other preprocedural examination (2) Diabetes mellitus type 2 in nonobese: Code(s): E11.9 - Type 2 diabetes mellitus without complications (3) Lipid disorder: Code(s): E78.9 - Disorder of lipoprotein metabolism, unspecified (4) Difficulty sleeping: Code(s): G47.9 - Sleep disorder, unspecified (5) Anxiety, generalized: Code(s): F41.1 - Generalized anxiety disorder (6) Depression, major, recurrent, mild: Code(s): F33.0 - Major depressive disorder, recurrent, mild (7) Irritable bowel syndrome with both constipation and diarrhea: Code(s): K58.2 - Mixed irritable bowel syndrome (8) Brain atrophy: Code(s): G31.9 - Degenerative disease of nervous system, unspecified Plan Patient is 69-year-old female came in today for her regular follow-up visit and preop clearance for cataract surgery left eye on 06/22/2024 [facility] Fr[facility] Patient is doing well and is in her usual state of health Diabetes mellitus: diet controlled last set of lab was January, new set of order placed to be done in July Depression:? She is on paroxetine 40 mg once a day.? Doing well at this time ? Sleeping difficulty: Patient is on trazodone 50 mg, medication is helping her ? Asthma:? Continue ProAir as needed, lungs are clear Lipid disorder: continue simvastatin 40 mg. IBS stable, however having breakthrough diarrhea which is uncontrollable about 2 times a week She said that she will discuss it further with Gastroenterology Other providers patient has seen is Dr. Jean neurology , MRI of brain was done no acute findings other than slight atrophy Patient has appointment in October for physical exam Patient is stable for cataract surgery We will fax a note over at [phone] Attention Cate Coding Level of Care Code Est Pt Level 4 (04678) Complex EM visit Add On G2211 Diagnoses Pre-op evaluation Z01.818 Diabetes mellitus type 2 in nonobese E11.9 Lipid disorder E78.9 Difficulty sleeping G47.9 Anxiety, generalized F41.1 Depression, major, recurrent, mild F33.0 Irritable bowel syndrome with both constipation and diarrhea K58.2 Brain atrophy G31.9 Additional Codes KATHY-7 Assessment Billing - KATHY-7 Assessment Tool: KATHY-7 Assessment 90181 ([id number])
== END 2024-05-27 11:21 | disposition home or self-care (01) ==
PROVIDERS: PCP Internal Medicine; Visit Provider Internal Medicine
DX: E11.9 Type 2 diabetes mellitus without complications (principal); F33.0 Major depressive disorder, recurrent, mild; G31.9 Degenerative disease of nervous system, unspecified; Z01.818 Encounter for other preprocedural examination; E78.9 Disorder of lipoprotein metabolism, unspecified; G47.9 Sleep disorder, unspecified; F41.1 Generalized anxiety disorder; K58.2 Mixed irritable bowel syndrome
CPT/HCPCS: 99214; G2211

== ENCOUNTER 2024-07-20 10:33 | Outpatient (AMB) | payer MEDICARE, SELFPAY ==
--- NOTE | 2024-07-20 10:36 | MHC.OFFVIS ---
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 She is doing well with no concerns. Attempting to eat a healthy diet with calcium and vitamin D and stays active with exercise-walking. Currently sexually active. Admits to vaginal dryness, uses a lubricant, somewhat helpful. Last pap smear; 2021. Last mammogram; 2023. Colonoscopy is UTD. Denies any family history of breast, ovarian or colon cancer. [facility] Medical History (Updated 07/20/24 @ 11:19 by Katie Carr CNM) Cataract Diverticulosis Tubular adenoma Polycystic kidney disease IBS (irritable bowel syndrome) Breast calcifications Type II diabetes mellitus Insomnia Asthma Depression with anxiety Surgical History Hx of colonoscopy Hx of colonoscopy Family History Father Liver cancer Heart problem Mother Lung cancer Brother Heart problem Diabetes Cardiovascular system problem Substance use disorder Mental health disorder Sister Diabetes Substance use disorder Brother Substance use disorder Social History Household Members: Children Housing: Apartment Are you a primary care coordination manager to a significant other at home: No Do you presently have visiting nurse or other home services: No Alcohol intake: never Comment: Tylenol PO given Patient Tobacco Use Status: Former Tobacco user Years Smoked: 15 yrs e-Cigarette/Vaping Use: Never Used Second Hand Smoke Exposure: No service: No Current occupational status: retired Sexual orientation: Straight/Heterosexual Gender identity: Female Cognitive needs: No Hearing needs: No Vision needs: Yes Female Reproductive History Menstrual Total pregnancies: 3 Full term: 3 Number of Living Children: 3 Date of last pap smear: 06/18/22 (neg pap and hpv) Date of Mammogram: 03/16/24 ([facility] 2) Review of Systems Const All systems reviewed & are unremarkable except as noted in HPI and below Reports as per HPI Eyes Reports no additional complaints ENT Reports no additional complaints Card Reports no additional complaints Resp Reports no additional complaints GI Reports as per HPI and Reports no additional complaints Reports as per HPI Musc Reports no additional complaints Skin/Breast Reports as per HPI Neuro Reports no additional complaints Psych Reports no additional complaints Endo Reports no additional complaints Nishant/Lymph Reports no additional complaints Aller/Immun Reports no additional complaints Physical Exam Vital Signs: Last Vital Signs BP 120/78 07/20/24 10:37 BMI result Body Mass Index 24.8 Const General: cooperative, healthy appearing, no acute distress, well developed and alert Orientation/consciousness: patient oriented x3 HEENT Head: Yes normal to inspection Eyes General: appearance normal, both eyes and all related structures Neck Neck: Yes normal visual inspection Thyroid: Thyroid normal Chest Chest palpation & inspection: normal inspection of the chest and other (no puckering, dimpling, peau de orange, retraction, discharge, masses) Breast/axilla inspection: normal inspection of the breasts Breast/axilla palpation: normal palpation of the breasts Resp Effort & Inspection: normal respiratory effort GI Inspection: Yes normal to inspection Palpation (GI): Soft to palpation Rectal Exam - Female: deferred General: Yes bladder normal to palpation External Female Exam: normal external appearance and normal appearance of the urethra Speculum Exam - Vagina: normal appearance of the vagina, normal palpation, normal vaginal discharge and vagina atrophic Speculum Exam - Cervix: normal appearance of the cervix and normal palpation Bimanual exam- vagina & uterus: normal bimanual exam, normal palpation, uterine size normal, bladder normal to palpation, normal palpation and non-tender Bimanual Exam- Adnexa, other: no masses Skin General skin exam: no rashes or lesions noted Rashes: no rashes Neuro General: patient oriented x3 Cognition (Neuro): normal cognition Extrem General: Yes normal to inspection Psych Attitude: cooperative Thought process: Normal thought process present Assessment & Plan Assessment & Plan (1) Encounter for well woman exam with routine gynecological exam: Code(s): Z01.419 - Encounter for gynecological examination (general) (routine) without abnormal findings Category: Medical Plan Discussed: Current recommendations for pap smears per ASCCP guidelines. Breast awareness, periodic self breast exams and yearly mammogram. Maintain a healthy lifestyle, well balanced diet including Calcium 1,200 mg and Vitamin D 600 IU daily, and routine exercise. Vaginal dryness-consider the use of Replens moisturizer. Contact the office with any postmenopausal bleeding. Patient verbalizes understanding and agrees to the plan of care. She was given opportunity to ask questions and all questions were answered to the best of my ability. RTO in 1 year for annual management professor exam. This note is constructed using voice recognition software. While every effort has been made to ensure accuracy, storm chaser errors may have been included. Coding Level of Care Code Est Pt Prev Care >65y(98018) Diagnoses Encounter for well woman exam with routine gynecological exam Z01.419
[2024-07-20 10:37] VITALS: BP 120/78; BMI 24.8
== END 2024-07-20 11:03 | disposition home or self-care (01) ==
PROVIDERS: PCP Internal Medicine; Visit Provider Advanced Practice Midwife
DX: Z01.419 Encounter for gynecological examination (general) (routine) without abnormal findings (principal)
CPT/HCPCS: 99397

== ENCOUNTER → 2024-07-20 10:33 | Outpatient (BNVA) | payer MEDICARE, SELFPAY | PROVIDERS: PCP Internal Medicine; Visit Provider Advanced Practice Midwife ==

== ENCOUNTER 2024-07-26 14:52 | Outpatient (AMB) | payer MEDICARE, SELFPAY ==
[2024-07-26 15:00] VITALS: BP 118/80; PULSE 69; TEMP 36.9; O2SAT 98; BMI 24.8
--- NOTE | 2024-07-26 15:00 | AM.OFFWIN_ITS ---
Intake Vital Signs 07/26/24 15:00 Height 5 ft Weight 127 lb BMI 24.8 BP 118/80 Blood Pressure Location Rt brachial Position Sitting Pulse 69 Pulse Source Pulse Oximeter Temp 98.4 F Temp Source Oral Pulse Oximetry (%) 98 Oxygen Delivery Method Room Air Intake Visit Reasons: EP ?sinus infection Intake Note: pt c/o facial and jaw pain, runny nose, migraines. Started 2 days ago Patient Tobacco Use Status: Former Tobacco user Allergies No Known Allergies Allergy (Verified 07/26/24 15:05) Do you need a note to return to daycare/school/sports/work: Yes HPI HPI Comments History of Present Illness Details Patient is a 69-year-old female complaining of sinus pain, migraines, jaw pain and head congestion for 2 days. She denies any fevers or shortness of breath, nausea vomiting or diarrhea. She has not tested for COVID at home. She took some sinus medication this morning but said it did not really help her symptoms at all. She states her symptoms seem to get a little bit better as the day goes on. She states she does not typically use a Neti pot or Flonase for her symptoms but she does get sinus infections every now and then. [facility] Medical History (Updated 07/26/24 @ 15:22 by Nancy Dozier PA-C) Cataract Diverticulosis Tubular adenoma Polycystic kidney disease IBS (irritable bowel syndrome) Breast calcifications Type II diabetes mellitus Insomnia Asthma Depression with anxiety Surgical History Hx of colonoscopy Hx of colonoscopy Family History Father Liver cancer Heart problem Mother Lung cancer Brother Heart problem Diabetes Cardiovascular system problem Substance use disorder Mental health disorder Sister Diabetes Substance use disorder Brother Substance use disorder Social History Household Members: Children Housing: Apartment Are you a primary healthcare administration intern to a significant other at home: No Do you presently have visiting nurse or other home services: No Alcohol intake: never Comment: Tylenol PO given Patient Tobacco Use Status: Former Tobacco user Years Smoked: 15 yrs e-Cigarette/Vaping Use: Never Used Second Hand Smoke Exposure: No service: No Current occupational status: retired Sexual orientation: Straight/Heterosexual Gender identity: Female Cognitive needs: No Hearing needs: No Vision needs: Yes Review of Systems Const All systems reviewed & are unremarkable except as noted in HPI and below Physical Exam Vital Signs: Last Vital Signs Temp 98.4 F 07/26/24 15:00 Pulse 69 07/26/24 15:00 BP 118/80 07/26/24 15:00 Pulse Ox 98 07/26/24 15:00 Oxygen Delivery Method Room Air 07/26/24 15:00 BMI result Body Mass Index 24.8 Const General: cooperative, healthy appearing, comfortable and no acute distress Orientation/consciousness: patient oriented x3 Limitations: no limitations HEENT Head: Yes normal to inspection Ears: hearing grossly normal bilaterally, external ears normal and TM's normal bilaterally General nose exam: Normal external nose present, Normal nares present and No nasal discharge present Face and sinus: Yes normal facial exam and Yes sinuses nontender Mouth: Normal oral and palatal mucosa present and moist mucous membranes Throat: Yes tonsils normal, Yes uvula midline and Yes posterior oropharynx abnormal (Erythema) Eyes General: appearance normal, both eyes and all related structures Neck Neck: Yes normal visual inspection Resp Effort & Inspection: normal respiratory effort, able to speak in complete sentences and no respiratory distress Skin General skin exam: no rashes or lesions noted Neuro General: patient oriented x3 Extrem General: Yes normal to inspection and Yes no clubbing, cyanosis or edema Assessment & Plan Assessment & Plan (1) Sinusitis: Code(s): J32.9 - Chronic sinusitis, unspecified Qualifiers: Sinusitis location: unspecified location Chronicity: acute Recurrence: non-recurrent Qualified Code(s): J01.90 - Acute sinusitis, unspecified Plan: Gave patient 20 mg of prednisone in office so she was not taking it to closely to her bedtime and we will send 4 more days of prednisone to her pharmacy for symptomatic relief. Recommended using a Neti pot, allergy pill and Flonase for symptoms. Did advise it is most likely viral. What Is It? Sinuses are air-filled spaces behind the bones of the upper face: between the eyes and behind the forehead, nose and cheeks. The lining of the sinuses are made up of cells with tiny hairs on their surfaces called cilia. Other cells in the lining produce mucus. The mucus traps germs and pollutants and the cilia push the mucus out through narrow sinus openings into the nose. When the sinuses become inflamed or infected, the mucus thickens and clogs the openings to one or more sinuses. Fluid builds up inside the sinuses causing increased pressure. Also bacteria can become trapped, multiply and infect the lining. This is sinusitis. Prevention There are some measures you can take to decrease your risk of developing sinusitis. If you smoke cigarettes, you should quit. The smoke can irritate nasal passageways and increase the likelihood of infection. Nasal allergies can trigger sinus infections, too. By identifying the allergen (the substance causing the allergic reaction) and avoiding it, you can help prevent sinusitis. If you have congestion from a cold or allergies, the following may help to reduce the risk of developing sinusitis: Drink lots of water. This thins nasal secretions and keeps mucous membranes moist. Use steam to soothe nasal passages. Breathe deeply while standing in a hot shower, or inhale the vapor from a basin filled with hot water while holding a towel over your head. Avoid blowing your nose with great force, which can push bacteria into the sinuses. Some doctors advise periodic home nasal washings to clear secretions. This may help prevent, and also treat, sinus infections. Treatment Many sinus infections improve without treatment. However, several medications may speed recovery and reduce the chance that an infection will become chronic. Decongestants - Congestion often triggers sinus infections, and decongestants can open the sinuses and allow them to drain. Several are available: Pseudoephedrine (Sudafed) is available without prescription, alone or in combination with other medications in multi-symptom cold and sinus remedies. Pseudoephedrine can cause insomnia, racing pulse and jitteriness. Do not use if you have high blood pressure or a heart condition. Phenylephrine (such as Lopez dafed PE) is an alternative acpz-evk-qwwxbhm oral decongestant. If you take products containing oral phenylephrine, check with the pharmacist to be certain there is no interaction with other medications you take. Oxymetazoline (AfrinCielo and others) and phenylephrine (Rajendra-Synephrine and others) are found in nasal sprays. They are effective and may be less likely to cause the side effects seen with pseudoephedrine. However, using a nasal decongestant for more than three days can cause worse symptoms when you stop the medication. This is called the rebound effect. Antihistamines - These medications help to relieve the symptoms of nasal allergies that lead to inflammation and infections. However, some doctors advise against using antihistamines during a sinus infection because they can cause excessive drying and slow the drainage process. Yqnp-lmp-ytaxygs antihistamines include diphenhydramine (Benadryl and others), chlorpheniramine (Chlor-Trimeton and others) and loratadine (Claritin). Fexofenadine (Sheeba) and cetrizine (Zyrtec) are available by prescription. Nasal steroids - Anti-inflammatory sprays such as mometasone (Nasonex) and fluticasone (Flonase), both available by prescription, reduce swelling of nasal membranes. Like antihistamines, nasal steroids can be most useful for those who have nasal allergies. Nasal steroids tend to produce less drying than antihistamines. Unlike nasal decongestants, nasal steroids can be used for prolonged periods. Saline nasal sprays - These salt-water sprays are safe to use and can provide some relief by adding moisture to the nasal passages, thinning mucus secretions and helping to flush out any bacteria that may be present. Pain relievers - Acetaminophen (Tylenol), ibuprofen (Advil, Motrin and others) or naproxen (Aleve) can be taken sinus pain. Antibiotics - Your doctor may prescribe an antibiotic if he or she suspects that a bacterial infection is causing your sinusitis. If you start taking an antibiotic, complete the entire course so that the infection is completely killed off. Not all cases of sinusitis require antibiotic treatment: Talk with your doctor about whether an antibiotic is right for you. Keep in mind that antibiotics can cause side effects, such as allergic reactions, rash and diarrhea. In addition, overusing antibiotics eventually leads to the spread of bacteria that no longer can be killed by the most commonly prescribed antibiotics. When To Call A Professional Contact a doctor if you experience facial pain along with a headache and fever, cold symptoms that last longer than seven to 10 days, or persistent green discharge from the nose. If your symptoms don''t improve within a week of beginning treatment, call your doctor. Call sooner if symptoms are getting worse. If you have repeated bouts of acute sinusitis, you may have allergies or another treatable cause of sinus congestion. Ask your doctor for advice. Plan See above Orders: Orders AMB Prednisone Adult Dose Today J32.9 - Chronic sinusitis, unspecified Medications: New prednisone 20 mg PO DAILY 4 tabs 0RF prednisone 20 mg PO ONCE 1 tab 0RF sinus pain J32.9 - Chronic sinusitis, unspecified Coding Level of Care Code Est Pt Level 3 (86489) Diagnoses Acute non-recurrent sinusitis, unspecified location J01.90 Sinusitis location: unspecified location Chronicity: acute Recurrence: non-recurrent
== END 2024-07-26 15:27 | disposition home or self-care (01) ==
PROVIDERS: PCP Internal Medicine; Visit Provider Physician Assistant
DX: J01.90 Acute sinusitis, unspecified (principal)

== ENCOUNTER 2024-07-26 14:52 | Outpatient (REF) | payer MEDICARE, SELFPAY ==
[2024-07-27 11:02] LABS: Influenza A PCR NEGATIVE (Negative); Influenza B PCR NEGATIVE (Negative); Resp Syncy Virus RNA Qual PCR NEGATIVE (Negative); SARS COV2 PCR INHOUSE NEGATIVE (Negative)
== END 2024-07-26 14:53 | disposition home or self-care (01) ==
LOC: HO.LNP 14:52
PROVIDERS: Physician Assistant; PCP Internal Medicine
DX: J06.9 Acute upper respiratory infection, unspecified (principal); J32.9 Chronic sinusitis, unspecified; G43.909 Migraine, unspecified, not intractable, without status migrainosus; R68.84 Jaw pain
CPT/HCPCS: 0241U; 99212

== ENCOUNTER → 2024-09-21 13:45 | Outpatient (BNV) | payer MEDICARE, SELFPAY | PROVIDERS: PCP Internal Medicine; Visit Provider Internal Medicine | DX: Z12.31 Encounter for screening mammogram for malignant neoplasm of breast (principal) | CPT/HCPCS: 77063; 77067 ==

== ENCOUNTER 2024-09-21 13:50 | Outpatient (REF) | payer MEDICARE, SELFPAY ==
--- NOTE | ~2024-09-21 | MM_ITS ---
EXAMINATION: MM SCREENING DIGITAL BREAST TOMOSYNTHESIS, BILATERAL CLINICAL INFORMATION: Screening. Asymptomatic. COMPARISON: Mammography: Comparison is made with available priors TECHNIQUE: Digital breast mammography with tomosynthesis is performed in both the craniocaudal and mediolateral oblique views along with computer-aided detection (CAD). FINDINGS: The breasts are heterogeneously dense, which may obscure small masses (ACR BI-RADS breast composition Category c). Left postsurgical changes from LCIS. Bilateral marker clips. Circumscribed oval mass in the lower right breast on MLO view stable for 2 years. There are no significant masses, abnormal calcifications, or other abnormalities. MM/MM tomosynthesis screening BI IMPRESSION: No mammographic evidence of malignancy. ASSESSMENT: BI-RADS BI-RADS 2 - Benign Findings RECOMMENDATION: Routine annual mammography screening. 1 year F/U This examination should not preclude the clinical evaluation of a suspicious palpable abnormality. This patient's information was entered into a reminder system with a target due date for their next mammogram. Electronically signed by: Dulce Maria Underwood DO 09/30/2024 08:45 AM [facility]
== END 2024-09-21 13:51 | disposition home or self-care (01) ==
LOC: HO.MAMMO 13:50
PROVIDERS: PCP Internal Medicine; Visit Provider Internal Medicine
DX: Z12.31 Encounter for screening mammogram for malignant neoplasm of breast (principal)
CPT/HCPCS: 77063; 77067

== ENCOUNTER 2024-10-11 11:37 | Outpatient (AMB) | payer MEDICARE, SELFPAY ==
[2024-10-11 11:47] VITALS: BP 124/80; PULSE 78; O2SAT 97; BMI 24.0
--- NOTE | 2024-10-11 11:47 | A.OFFPC_ITS ---
Vital Signs 10/11/24 11:47 Height 5 ft Weight 123 lb BMI 24.0 BP 124/80 Blood Pressure Location Lt brachial Position Sitting Pulse 78 Pulse Source Pulse Oximeter Pulse Oximetry (%) 97 Oxygen Delivery Method Room Air Intake Visit Reasons: Annual PE Allergies No Known Allergies Allergy (Verified 10/11/24 11:48) Medication List - Last Reconciled 10/11/24 by Any Jaffe MD cholecalciferol (vitamin D3) 25 mcg PO DAILY 90 days docusate sodium (Colace) 100 mg PO DAILY ibuprofen 200 mg PO Q6H PRN lactobacillus combination no.4 (Probiotic) 1 capsule PO daily; administer with a meal 30 days paroxetine HCl 40 mg PO DAILY simvastatin 40 mg PO BEDTIME trazodone 50 mg PO BEDTIME PRN Tobacco use date assessed: 10/11/24 Fall risk assessment: No Falls in past year Last assessed Fall Risk: 10/11/24 Dental Screening Dental Screen Date: 10/11/24 Did you have a dental visit in the last 12 months?: Yes Did you have a dental problem in the last 6 months where you did not have access to dental care?: No Was dental information given to patient?: Patient has dentist HPI Annual PE HPI Details Chief Complaint: Physical exam Health Maintenance - Mammogram is up to date - Colonoscopy is up to date - UTILIZATION MANAGEMENT UM NURSE visit is up to date, including breast examination - Discussion regarding the necessity of lab tests before the next visit - Emphasis on maintaining personal healt h and reducing caregiving burdens Assessment and Plan 69-year-old female with a history of emo tional distress and irritable bowel syndrome presents with emotional strain and overwhelm due to caregiving duties towards family members facing health issues. She reports frustration and fatigue related to these responsibilities and the need for strategies to manage caregiver stress. Her screening and preventative measures, including mammogram, colonoscopy, and UTILIZATION MANAGEMENT UM NURSE follow-up, have been maintained as up-to-date. There is a need to focus on her mental health and provide support in managing the secondary stressors related to her family?s medical issues. 1. Other symptoms and signs involving em otional state R45.89 The patient's emotional distress appears related to her extensive caregiving responsibilities and concern for her siblings. Encouraged coping strategies such as establishing boundaries and prioritizing self-care. Discussed considering therapeutic support for emotional health. 2. Cataract Post-Surgery Management Post-cataract surgery in the left eye has been acknowledged. Monitor for any vision changes in the right eye for timely intervention. 3. Irritable Bowel Syndrome Ibs Currently stable, no acute intervention required. Advised to continue current management and monitor for changes or exacerbations. 4. Caregiver Stress Addressed the importance of setting limits on caregiving duties to prevent burnout. Suggested potential community resources or counseling to support stress management. Reinforced the importance of ensuring personal health and wellbeing. 5- diet-controlled diabetes, continue wi th dietary restrictions Continue medications Patient Instructions - Consider therapy for emotional support to manage stress and caregiving burden. - Prioritize self-care and personal heal th, setting boundaries with caregiving duties. - Complete lab tests this weekend or hin six months, and ensure they are done before the next visit. - Monitor for any changes in vision, renaldo ecially in the right eye which has not undergone surgery. - Maintain routine follow-ups for health screenings and preventative measures. - Re-evaluate caregiver roles and utiliz e community resources to alleviate stress. Lab order placed in May still not done, reminded patient Follow-up six-month labs are needed before visit again PFSH Medical History Cataract Diverticulosis Tubular adenoma Polycystic kidney disease IBS (irritable bowel syndrome) Breast calcifications Type II diabetes mellitus Insomnia Asthma Depression with anxiety Surgical History Hx of colonoscopy Hx of colonoscopy Family History Father Liver cancer Heart problem Mother Lung cancer Brother Heart problem Diabetes Cardiovascular system problem Substance use disorder Mental health disorder Sister Diabetes Substance use disorder Brother Substance use disorder Social History Household Members: Children Housing: Apartment Are you a primary customer care specialist to a significant other at home: No Do you presently have visiting nurse or other home services: No Alcohol intake: never Comment: Tylenol PO given Patient Tobacco Use Status: Former Tobacco user Years Smoked: 15 yrs e-Cigarette/Vaping Use: Never Used Second Hand Smoke Exposure: No service: No Current occupational status: retired Sexual orientation: Straight/Heterosexual Gender identity: Female Cognitive needs: No Hearing needs: No Vision needs: Yes Questionnaire Thrive Questionnaire Date Thrive assessed: 10/11/24 I am a: Patient What is your living situation today?: I have a steady place to live Within the past 12 months, did the food you bought not last and you didn't have the money to get more?: Never true Within the past 12 months, did you worry whether your food would run out before you got money to buy more?: Never true Do you have trouble paying for medicines?: No Do you have trouble getting transportation to medical appointments?: No Do you have trouble paying your heating and electricity bill?: No Do you have trouble taking care of your child, family member or friend?: No Do you have trouble with day-to-day activities such as bathing, preparing meals, shopping, managing finances, etc.?: No Are you currently unemployed and looking for a job?: No Are you interested in more education?: No Please select the resources that you would like help with: None Currently or been in a relationship where the following occur: No concerns reported THRIVE Score: 0 AUDIT C Alcohol Use Questionnaire (AUDIT-C) 1. How often do you have a drink containing alcohol?: Monthly or less 2. How many drinks containing alcohol do you have on a typical day when you are drinking?: 1 or 2 3. How often do you have six or more drinks on one occasion?: Never Total Score: 1 Score Reviewed/Action Taken: Yes KATHY-7 AMB Questionnaire KATHY-7 Date KATHY - 7 assessed: 05/27/24 Source: Developed by Drs. Theo Navas, Marla Brooks, Abdi Kruse and colleagues, with an educational dave from [employer]. Review of Systems Const Denies chills, Denies fever(s) and Denies headache(s) Eyes Denies blurry vision ENT Denies headache(s), Denies nasal discharge, Denies nasal obstruction, Denies odynophagia and Denies sinus pain Card Denies chest pain at rest and Denies chest pain with activity Resp Denies cough and Denies hemoptysis GI Denies diarrhea, Denies odynophagia, Denies vomiting and Denies hematemesis Reports as per HPI Musc Denies abnormal gait Skin/Breast Reports as per HPI Neuro Denies Neuro-related abnormal movements, Denies Abnormal speech present, Denies abnormal gait, Denies headache(s) and Denies Sensory deficit (Neuro) Psych Denies mood swings and Denies paranoia Endo Reports as per HPI Nishant/Lymph Reports as per HPI Aller/Immun Reports as per HPI Physical exam (Primary Care) Vital Signs: Last Vital Signs Pulse 78 10/11/24 11:47 BP 124/80 10/11/24 11:47 Pulse Ox 97 10/11/24 11:47 Oxygen Delivery Method Room Air 10/11/24 11:47 BMI result Body Mass Index 24.0 Tobacco/Smoking Status: Tobacco use Status Tobacco use date assessed 10/11/24 10/11/24 11:49 Patient Tobacco Use Status Former Tobacco user 10/11/24 11:49 e-Cigarette/Vaping Use Never Used 10/11/24 11:49 Thrive Assessment: Date of Thrive Assessment Date Thrive assessed 10/11/24 10/11/24 11:49 Currently or been in a relationship where the following occur: No concerns reported Const General: cooperative, comfortable and no acute distress Orientation/consciousness: patient oriented x3 HENMT Head: Yes normocephalic and Yes atraumatic Eyes General: appearance normal, both eyes and all related structures Pupils: Equal, round and reactive pupils present EOM: EOMs intact bilaterally Neck Neck: Yes supple and No lymphadenopathy Thyroid: Thyroid normal Lymphatic: no lymphadenopathy noted Resp Effort & Inspection: normal respiratory effort and able to speak in complete sentences Auscultation: clear to auscultation bilaterally Cardio Heart sounds: S1 normal heart sound present and S2 normal heart sound present GI Palpation (GI): Soft to palpation and nontender Auscultation: normal bowel sounds General: Yes no CVA tenderness Back/Spine/Pelvis Back: no CVA tenderness Skin General skin exam: elasticity normal and turgor normal Neuro General: patient oriented x3 and gait normal Cranial nerves: Yes Equal, round and reactive pupils present Speech: No Abnormal speech present Sensory Exam: No Sensory deficit (Neuro) Coordination: Romberg test negative Extrem General: Yes normal exam except as noted and No edema Coding Level of Care Code Est Pt Level 3 (16727) Est Pt Prev Care >65y(28090) Diagnoses Encounter for general adult medical examination with abnormal findings Z00.01 Diabetes mellitus type 2 in nonobese E11.9 Lipid disorder E78.9 Difficulty sleeping G47.9 Anxiety, generalized F41.1 Depression, major, recurrent, mild F33.0 Assessment & Plan Assessment & Plan (1) Encounter for general adult medical examination with abnormal findings: Code(s): Z00.01 - Encounter for general adult medical examination with abnormal findings Category: Medical (2) Diabetes mellitus type 2 in nonobese: Code(s): E11.9 - Type 2 diabetes mellitus without complications Category: Medical (3) Lipid disorder: Code(s): E78.9 - Disorder of lipoprotein metabolism, unspecified Category: Medical (4) Difficulty sleeping: Code(s): G47.9 - Sleep disorder, unspecified Category: Medical (5) Anxiety, generalized: Code(s): F41.1 - Generalized anxiety disorder Category: Medical (6) Depression, major, recurrent, mild: Code(s): F33.0 - Major depressive disorder, recurrent, mild Category: Medical Plan Chief Complaint: Physical exam Health Maintenance - Mammogram is up to date - Colonoscopy is up to date - UTILIZATION MANAGEMENT UM NURSE visit is up to date, including breast examination - Discussion regarding the necessity of lab tests before the next visit - Emphasis on maintaining personal health and reducing caregiving burdens Assessment and Plan 69-year-old female with a history of emotional distress and irritable bowel syndrome presents with emotional strain and overwhelm due to caregiving duties towards family members facing health issues. She reports frustration and fatigue related to these responsibilities and the need for strategies to manage caregiver stress. Her screening and preventative measures, including mammogram, colonoscopy, and UTILIZATION MANAGEMENT UM NURSE follow-up, have been maintained as up-to-date. There is a need to focus on her mental health and provide support in managing the secondary stressors related to her family?s medical issues. 1. Other symptoms and signs involving emotional state R45.89 The patient's emotional distress appears related to her extensive caregiving responsibilities and concern for her siblings. Encouraged coping strategies such as establishing boundaries and prioritizing self-care. Discussed considering th erapepric support for emotional health. 2. Cataract Post-Surgery Management Post-cataract surgery in the left eye has been acknowledged. Monitor for any vision changes in the right eye for timely intervention. 3. Irritable Bowel Syndrome Ibs Currently stable, no acute intervention required. Advised to continue current management and monitor for changes or exacerbations. 4. Caregiver Stress Addressed the importance of setting limits on caregiving duties to prevent burnout. Suggested potential community resources or counseling to support stress management. Reinforced the importance of ensuring personal health and wellbeing. 5- diet-controlled diabetes, continue with dietary restrictions Continue medications Patient Instructions - Consider therapy for emotional support to manage stress and caregiving burden. - Prioritize self-care and personal health, setting boundaries with caregiving duties. - Complete lab tests this weekend or within six months, and ensure they are done before the next visit. - Monitor for any changes in vision, especially in the right eye which has not undergone surgery. - Maintain routine follow-ups for health screenings and preventative measures. - Re-evaluate caregiver roles and utilize community resources to alleviate stress. Lab order placed in May still not done, reminded patient Follow-up six-month labs are needed before visit again Orders: Orders LDL Cholesterol Direct 6 Months E11.9 - Type 2 diabetes mellitus without complications, E78.9 - Disorder of lipoprotein metabolism, unspecified, F33.0 - Major depressive disorder, recurrent, mild, F41.1 - Generalized anxiety disorder, G47.9 - Sleep disorder, unspecified, Z00.01 - Encounter for general adult medical examination with abnormal findings Complete Blood Count Auto Diff 6 Months E11.9 - Type 2 diabetes mellitus without complications, E78.9 - Disorder of lipoprotein metabolism, unspecified, F33.0 - Major depressive disorder, recurrent, mild, F41.1 - Generalized anxiety disorder, G47.9 - Sleep disorder, unspecified, Z00.01 - Encounter for general adult medical examination with abnormal findings Comprehensive Met. Panel 6 Months E11.9 - Type 2 diabetes mellitus without complications, E78.9 - Disorder of lipoprotein metabolism, unspecified, F33.0 - Major depressive disorder, recurrent, mild, F41.1 - Generalized anxiety disorder, G47.9 - Sleep disorder, unspecified, Z00.01 - Encounter for general adult medical examination with abnormal findings TSH reflex Free T4 6 Months E11.9 - Type 2 diabetes mellitus without complications, E78.9 - Disorder of lipoprotein metabolism, unspecified, F33.0 - Major depressive disorder, recurrent, mild, F41.1 - Generalized anxiety disorder, G47.9 - Sleep disorder, unspecified, Z00.01 - Encounter for general adult medical examination with abnormal findings Hemoglobin A1c 6 Months E11.9 - Type 2 diabetes mellitus without complications, E78.9 - Disorder of lipoprotein metabolism, unspecified, F33.0 - Major depressive disorder, recurrent, mild, F41.1 - Generalized anxiety disorder, G47.9 - Sleep disorder, unspecified, Z00.01 - Encounter for general adult medical examination with abnormal findings Microalbumin, Random (w Creat) 6 Months E11.9 - Type 2 diabetes mellitus without complications
== END 2024-10-11 12:09 | disposition home or self-care (01) ==
PROVIDERS: PCP Internal Medicine; Visit Provider Internal Medicine
DX: Z00.00 Encounter for general adult medical examination without abnormal findings (principal); E11.9 Type 2 diabetes mellitus without complications; F33.0 Major depressive disorder, recurrent, mild; E78.9 Disorder of lipoprotein metabolism, unspecified; G47.9 Sleep disorder, unspecified; F41.1 Generalized anxiety disorder

== ENCOUNTER → 2024-10-11 11:37 | Outpatient (BNVA) | payer MEDICARE, SELFPAY | PROVIDERS: PCP Internal Medicine; Visit Provider Internal Medicine | DX: Z00.01 Encounter for general adult medical examination with abnormal findings (principal); E11.9 Type 2 diabetes mellitus without complications; E78.9 Disorder of lipoprotein metabolism, unspecified; F41.1 Generalized anxiety disorder; F33.0 Major depressive disorder, recurrent, mild; G47.9 Sleep disorder, unspecified | CPT/HCPCS: 99212; 99397 ==

== ENCOUNTER 2024-10-14 12:13 | Outpatient (REF) | payer MEDICARE, SELFPAY ==
[2024-10-14 13:11] LABS: MANUAL DIFF FLAG NO
[2024-10-14 13:21] LABS: Basophils Percent Auto 0.2 % (0-2); Eosinophils Absolute Auto 0.1 X10*3/uL (0.0-0.4); Eosinophils Percent Auto 1.7 % (0-4); Hematocrit 41.7 % (37.0-47.0); Imm Gran Abs Auto 0.01 X10*3/uL (0.00-0.03); Imm Gran Pct Auto 0.2 % (0.0-0.4); Lymphocytes Absolute Auto 1.4 X10*3/uL (1.2-4.9); Mean Corpuscular HGB Conc 33.6 g/dl (31.0-35.0); Mean Corpuscular Volume 89.3 fL (80.0-98.0); Mean Platelet Volume 10.6 fL (9.4-12.3); Monocytes Absolute Auto 0.3 X10*3/uL (0.1-1.2); Neutrophils Absolute Auto 2.3 x10*3/uL (2.0-8.3); Neutrophils Percent Auto 56.9 % (45-73); Platelet Count 177 X10*3/uL (160-400); Red Blood Count 4.67 X10*6/uL (4.20-5.50); Red Cell Distribution Width 12.3 % (11.0-16.0); White Blood Count 4.1 X10*3/uL (4.8-10.8)
[2024-10-14 13:33] LABS: Estimated Average Glucose 148 mg/dL; Hemoglobin A1C 183.5608 umol/L; Hemoglobin A1c % 6.8 % (<6.0); Total Hemoglobin (HGBA1C) 3593.0972 umol/L
[2024-10-14 14:01] LABS: Alanine Aminotransferase 21 U/L (0-31); Alkaline Phosphatase 86 U/L (39-117); Anion Gap 9 (12-20); Aspartate Amino Transferase 24 U/L (5-31); Bilirubin Total 1.1 mg/dL (0.0-1.0); Blood Urea Nitrogen 15 mg/dL (9-16); Calcium 9.5 mg/dL (8.4-10.2); Carbon Dioxide 30 mmol/L (22-29); Chloride 108 mmol/L (96-108); Cholesterol 183 mg/dL (<200); Estimated Glomerular Filt Rate > 60; Glucose Fasting 156 mg/dL (60-99); HDL Cholesterol 62 mg/dL (>40); LDL Cholesterol Calculated 102 mg/dL (<100); Potassium 4.2 mmol/L (3.3-5.1); Sodium 143 mmol/L (135-145); Total Protein 6.6 g/dL (6.5-8.0); Triglycerides 95 mg/dL (<150)
[2024-10-14 14:09] LABS: TSH reflex Free T4 2.16 uIU/mL (0.32-4.0)
[2024-10-14 14:16] LABS: Vitamin B12 616 pg/mL (200-900)
[2024-10-14 16:43] LABS: Creatinine Urine 70.68 mg/dL; Microalbumin Urine < 5.0 mg/L
[2024-10-19 14:28] LABS: Vitamin D 25-OH, D2 <4 ng/mL; Vitamin D 25-OH, D3 40 ng/mL; Vitamin D 25-OH, Total 40 ng/mL (30-100)
== END 2024-10-14 12:14 | disposition home or self-care (01) ==
LOC: HO.HMGCLDS 12:13
PROVIDERS: PCP Internal Medicine; Visit Provider Internal Medicine
DX: D70.9 Neutropenia, unspecified (principal); G31.9 Degenerative disease of nervous system, unspecified; G25.81 Restless legs syndrome; F33.0 Major depressive disorder, recurrent, mild; J45.40 Moderate persistent asthma, uncomplicated; F41.1 Generalized anxiety disorder; E11.9 Type 2 diabetes mellitus without complications; K58.2 Mixed irritable bowel syndrome; E78.9 Disorder of lipoprotein metabolism, unspecified; R32 Unspecified urinary incontinence
CPT/HCPCS: 36415; 80053; 80061; 82043; 82306; 82570; 82607; 83036; 84443; 85025

== ENCOUNTER 2024-12-21 11:00 | Outpatient (AMB) | payer MEDICARE, SELFPAY ==
--- NOTE | 2024-12-21 11:09 | A.OFFVIS_ITS ---
Vital Signs 12/21/24 11:17 Height 5 ft Weight 130 lb BMI 25.4 BP 124/76 Blood Pressure Location Lt brachial Position Sitting Pulse 66 Pulse Source Pulse Oximeter Pulse Oximetry (%) 97 Oxygen Delivery Method Room Air Intake Visit Reasons: Follow Up Die Machine Operator Required: No Accompanied by: Self / Same As Patient Allergies No Known Allergies Allergy (Verified 12/21/24 11:16) HPI Comments Details: 69-yr-old female presents for f/u visit for balance difficulties. She denies BUE heaviness, tingling. She reports she has been having right or left leg tingling- occurs at rest, less few seconds, it may be just in her ankles, but can move up to her thighs. She reports her right leg is heavier. She is not able to lift the leg as high so may trip when walking up stairs. She endorses occasional low back soreness- tries to sit up better. She may have some falls, if she bends over to pick something up, and tips over. Trying to squat down further, which helps. Can be off-balance if she looks down or closes her eyes. Denies falls while walking. Endorses tremor if her blood sugar is too low, more frequent urinary frequency and urge inc- triggered by turning on water, IBS. Denies lower extremity numbness, swelling, skin color changes, known parasomnais, hyposmia, orthostatic hypotension. Denies h/o neuroleptic or metoclopramide use. Worked in [employer]. FORMERLY [facility], LATER [facility] Medical History Cataract Diverticulosis Tubular adenoma Polycystic kidney disease IBS (irritable bowel syndrome) Breast calcifications Type II diabetes mellitus Insomnia Asthma Depression with anxiety Surgical History Hx of colonoscopy Hx of colonoscopy Family History Father Liver cancer Heart problem Mother Lung cancer Brother Heart problem Diabetes Cardiovascular system problem Substance use disorder Mental health disorder Sister Diabetes Substance use disorder Brother Substance use disorder Social History Household Members: Children Housing: Apartment Are you a primary career technical education teacher to a significant other at home: No Do you presently have visiting nurse or other home services: No Alcohol intake: never Comment: Tylenol PO given Patient Tobacco Use Status: Former Tobacco user Years Smoked: 15 yrs e-Cigarette/Vaping Use: Never Used Second Hand Smoke Exposure: No service: No Current occupational status: retired Sexual orientation: Straight/Heterosexual Gender identity: Female Cognitive needs: No Hearing needs: No Vision needs: Yes Physical Exam Vital Signs: Last Vital Signs Pulse 66 12/21/24 11:17 BP 124/76 12/21/24 11:17 Pulse Ox 97 12/21/24 11:17 Oxygen Delivery Method Room Air 12/21/24 11:17 BMI result Body Mass Index 25.4 Const General: cooperative and no acute distress Orientation/consciousness: patient oriented x3 HEENT Head: Yes normocephalic Resp Effort & Inspection: normal respiratory effort and able to speak in complete sentences Neuro Other: Good expression and blink Fine finger movement intact BLE-no tone appreciated RLE mild tightness through hip, knee, ankle. RLE slow, mildly degrees foot taps LLE foot taps intact Finger nose- intact without tremor Romberg- mild swaying without loss of balance. Stands easily, good stride, steady gait Bilateral patellar DTR 2+ Muscle strength 5/5 throughout General: patient oriented x3 and CN's II-XI intact bilaterally Cognition (Neuro): normal cognition Motor exam (neuro): 5/5 motor strength present throughout Psych Appearance: grossly normal Mental Status: mental status grossly normal Speech and movement: Normal speech and movement present Affect: normal affect Attitude: cooperative Thought process: Normal thought process present Thought content: Normal thought content present Insight: Good insight present (Psych) Judgement: Good judgement present (Psych) Assessment & Plan Assessment & Plan (1) Difficulty balancing: Code(s): R29.818 - Other symptoms and signs involving the nervous system Category: Medical (2) Dizziness: Code(s): R42 - Dizziness and giddiness Category: Medical (3) Restless leg syndrome: Comment: mild Code(s): G25.81 - Restless legs syndrome Category: Medical (4) Tremor: Code(s): R25.1 - Tremor, unspecified Category: Medical (5) Paresthesia of both lower extremities: Comment: Intermittent, brief, typically at rest Code(s): R20.2 - Paresthesia of skin Category: Medical Plan Continue PT exercises, home exercises. Continue working on balance exercises- may modify as needed. Check labs for common etiologies of paresthesia. Advise if low back pain or bilateral lower extremity paresthesias worsen, we can consider L-spine imaging and/or EMG/NCS. ? Will follow-up upon review of above and patient to follow-up in clinic in 12 months or sooner prn. Orders: Orders Vitamin B6 Today E11.9 - Type 2 diabetes mellitus without complications, R20.2 - Paresthesia of skin Vitamin B12 and Folate Today E11.9 - Type 2 diabetes mellitus without complications, R20.2 - Paresthesia of skin Coding Level of Care Code Est Pt Level 3 (99251) Diagnoses Difficulty balancing R29.818 Dizziness R42 Restless leg syndrome G25.81 Tremor R25.1 Paresthesia of both lower extremities R20.2
[2024-12-21 11:17] VITALS: BP 124/76; PULSE 66; O2SAT 97; BMI 25.4
== END 2024-12-21 12:05 | disposition home or self-care (01) ==
PROVIDERS: PCP Internal Medicine; Visit Provider Nurse Practitioner Family
DX: R29.818 Other symptoms and signs involving the nervous system (principal); R42 Dizziness and giddiness; G25.81 Restless legs syndrome; R20.2 Paresthesia of skin; R25.1 Tremor, unspecified
CPT/HCPCS: 99213

== ENCOUNTER → 2024-12-21 11:00 | Outpatient (BNVA) | payer MEDICARE, SELFPAY | PROVIDERS: PCP Internal Medicine; Visit Provider Nurse Practitioner Family | DX: R29.818 Other symptoms and signs involving the nervous system (principal); R42 Dizziness and giddiness; R20.2 Paresthesia of skin; R25.1 Tremor, unspecified; G25.81 Restless legs syndrome | CPT/HCPCS: 99212 ==

== ENCOUNTER 2025-04-26 11:18 | Outpatient (AMB) | payer MEDICARE, SELFPAY ==
[2025-04-26 11:20] VITALS: BP 116/72; PULSE 74; TEMP 37.3; O2SAT 97; BMI 25.6
--- NOTE | 2025-04-26 11:20 | A.OFFPC_ITS ---
Vital Signs 04/26/25 11:20 Height 5 ft Weight 131 lb BMI 25.6 BP 116/72 Blood Pressure Location Rt brachial Position Sitting Pulse 74 Pulse Source Pulse Oximeter Temp 99.1 F Temp Source Oral Pulse Oximetry (%) 97 Oxygen Delivery Method Room Air Intake Visit Reasons: 6 month follow up Sail Maker Required: No Allergies No Known Allergies Allergy (Verified 04/26/25 11:22) Medication List - Last Reconciled 04/26/25 by Any Jaffe MD cholecalciferol (vitamin D3) 25 mcg PO DAILY 90 days docusate sodium (Colace) 100 mg PO DAILY ibuprofen 200 mg PO Q6H PRN lactobacillus combination no.4 (Probiotic) 1 capsule PO daily; administer with a meal 30 days paroxetine HCl 40 mg PO DAILY simvastatin 40 mg PO BEDTIME trazodone 50 mg PO BEDTIME PRN Tobacco use date assessed: 04/26/25 Fall risk assessment: No Falls in past year Last assessed Fall Risk: 04/26/25 Dental Screening Dental Screen Date: 04/26/25 Did you have a dental visit in the last 12 months?: No Did you have a dental problem in the last 6 months where you did not have access to dental care?: No Was dental information given to patient?: Patient has dentist HPI 6 month follow up HPI Details History - The patient is a 70-year-old female wi th a history of diet-controlled diabetes, vitamin-D deficiency, constipation, anxiety/depression, lipid disorder, sleeping difficulty presenting with heel pain. - Onset: Gradual; current episode's dura tion not specified. - Location: Predominantly right heel, wi th lesser pain in the left heel. - Severity: Pain described as severe brea ugh to cause difficulty in walking. - Quality: Feels like walking on bone. - Aggravating Factors: Weight-bearing an d prolonged standing. - Alleviating Factors: Application of li docaine cream and use of pain relief medication such as Aleve. Orthotics used but reported minimal relief. - Previous Interventions: No prior imagi ng studies conducted. - Additional Symptoms: No reports of serena sea, vomiting, or systemic symptoms. - Visual changes following cataract surg jonathan. - Current Status: Achieving 20/20 vision but requires reading glasses. - No mention of offering advanced lenses at the time of surgery. Medical History: - Diabetes Mellitus - Recent urinary tract infection - Hyperlipidemia - Depression - No previous mention of heel spur Surgical History: - Cataract surgery (specifics regarding laterality and time were not provided) Medications: - Paroxetine 40 mg, indicated for depres jamie - Simvastatin 40 mg, indicated for hyper lipidemia - Trazodone 50 mg, to sleep at night - Aleve and lidocaine cream for heel savana n management - Colace for constipation Social History: - Recently turned 70, indicating a miles tone in her life. - Family status includes being the mothe r of a daughter who recently became . Family History: - Mention of daughter's struggles with i nfertility but recently had a spontaneous . Diagnostic Results: - Labs from October indicating A1c of 6 .8 Problem List - Heel Pain right more than left - Diabetes Mellitus diet-controlled - Hyperlipidemia - Recent history of Urinary Tract Infect ion - Depression Patient Instructions - Proceed to have laboratory work comple sri today. - Consider use of orthotics for heel sup port, pending x-ray results and further treatment. - Monitor blood sugar as per diabetic ma nagement plan. - Follow up with any changes in vision o r other health concerns. Review of Systems - General: No fever no chills - Neurological: No headaches no dizziness - Ear nose throat: No sore throat no hearing difficulty no ear pain - Cardiovascular: No syncope, no chest pain, no palpitations - Gastrointestinal: No nausea vomiting or diarrhea - Endocrine: No polyuria polydipsia no heat intolerance - Genitourinary: No dysuria , no blood in urine Physical Exam General: No acute distress HEENT: No acute findings Neck: Supple Respiratory system: Able to talk in full sentences, no audible wheeze Cardiovascular: S1-S2 regular in rate and rhythm Gastrointestinal: No pain Extremities: Right heel pain, difficult to walk, possible heel spur SOFTWARE QUALITY SPECIALIST: Alert awake oriented x3 motor sensory intact Skin: Normal turgor PFSH Medical History Cataract Diverticulosis Tubular adenoma Polycystic kidney disease IBS (irritable bowel syndrome) Breast calcifications Type II diabetes mellitus Insomnia Asthma Depression with anxiety Surgical History Hx of colonoscopy Hx of colonoscopy Family History Father Liver cancer Heart problem Mother Lung cancer Brother Heart problem Diabetes Cardiovascular system problem Substance use disorder Mental health disorder Sister Diabetes Substance use disorder Brother Substance use disorder Social History Household Members: Children Housing: Apartment Are you a primary wound care nurse to a significant other at home: No Do you presently have visiting nurse or other home services: No Alcohol intake: never Comment: Tylenol PO given Patient Tobacco Use Status: Former Tobacco user Years Smoked: 15 yrs e-Cigarette/Vaping Use: Never Used Second Hand Smoke Exposure: No service: No Current occupational status: retired Sexual orientation: Straight/Heterosexual Gender identity: Female Cognitive needs: No Hearing needs: No Vision needs: Yes Questionnaire PHQ-9 Over the last 2 weeks, how often have you been bothered by any of the following problems? 1. Little interest or pleasure in doing things: not at all 2. Feeling down, depressed, or hopeless: not at all 3. Trouble falling or staying asleep, or sleeping too much: not at all 4. Feeling tired or having little energy: several days 5. Poor appetite or overeating: not at all 6. Feeling bad about yourself - or that you are a failure or have let yourself or your family down: not at all 7. Trouble concentrating on things, such as reading the newspaper or watching television: not at all 8. Moving or speaking so slowly that other people could have noticed. Or the opposite - being so fidgety or restless that you have been moving around a lot more than usual: not at all 9. Thoughts that you would be better off or of hurting yourself in some way: not at all Total score: 1 Depression Screening Interpretation: Negative Depression Screening Done: Yes Source: Developed by Drs. Theo Navas, Marla Brooks, Abdi Kruse and colleagues, with an educational dave from [employer]. Thrive Questionnaire Date Thrive assessed: 04/26/25 I am a: Patient What is your living situation today?: I have a steady place to live Within the past 12 months, did the food you bought not last and you didn't have the money to get more?: Never true Within the past 12 months, did you worry whether your food would run out before you got money to buy more?: Never true Do you have trouble paying for medicines?: No Do you have trouble getting transportation to medical appointments?: No Do you have trouble paying your heating and electricity bill?: No Do you have trouble taking care of your child, family member or friend?: Yes Do you have trouble with day-to-day activities such as bathing, preparing meals, shopping, managing finances, etc.?: No Are you currently unemployed and looking for a job?: No Are you interested in more education?: No Please select the resources that you would like help with: None Currently or been in a relationship where the following occur: No concerns reported THRIVE Score: 0 AUDIT C Alcohol Use Questionnaire (AUDIT-C) 1. How often do you have a drink containing alcohol?: Monthly or less 2. How many drinks containing alcohol do you have on a typical day when you are drinking?: 1 or 2 3. How often do you have six or more drinks on one occasion?: Never Total Score: 1 KATHY-7 AMB Questionnaire KATHY-7 Date KATHY - 7 assessed: 05/27/24 Feeling nervous, anxious, or on edge: 1 = Several days Not being able to stop or control worryin = Not at all Worrying too much about different things: 1 = Several days Trouble relaxin = Several days Being so restless that it is hard to sit still: 0 = Not at all Becoming easily annoyed or irritable: 0 = Not at all Feeling afraid as if something awful might happen: 0 = Not at all Total KATHY-7 score (0-4 normal; 5-9 mild; 10-14 moderate; 15-21 severe): 3 Source: Developed by Drs. Theo Navas, Marla Brooks, Abdi Kruse and colleagues, with an educational dave from [employer]. Physical exam (Primary Care) Vital Signs: Last Vital Signs Temp 99.1 F 04/26/25 11:20 Pulse 74 04/26/25 11:20 BP 116/72 04/26/25 11:20 Pulse Ox 97 04/26/25 11:20 Oxygen Delivery Method Room Air 04/26/25 11:20 BMI result Body Mass Index 25.6 Tobacco/Smoking Status: Tobacco use Status Tobacco use date assessed 04/26/25 04/26/25 11:28 Patient Tobacco Use Status Former Tobacco user 06/18/25 11:28 e-Cigarette/Vaping Use Never Used 04/26/25 11:28 PHQ-9: PHQ-9 Score PHQ-9: Total score 1 04/26/25 11:35 Depression Screening Interpretation: Negative Thrive Assessment: Date of Thrive Assessment Date Thrive assessed 04/26/25 04/26/25 11:28 Currently or been in a relationship where the following occur: No concerns reported Coding Level of Care Code Est Pt Level 4 (20200) Complex EM visit Add On G2211 Diagnoses Pain of right heel M79.671 Diabetes mellitus type 2 in nonobese E11.9 Lipid disorder E78.9 Difficulty sleeping G47.9 Anxiety, generalized F41.1 Depression, major, recurrent, mild F33.0 Assessment & Plan Assessment & Plan (1) Pain of right heel: Code(s): M79.671 - Pain in right foot Category: Medical (2) Diabetes mellitus type 2 in nonobese: Code(s): E11.9 - Type 2 diabetes mellitus without complications Category: Medical (3) Lipid disorder: Code(s): E78.9 - Disorder of lipoprotein metabolism, unspecified Category: Medical (4) Difficulty sleeping: Code(s): G47.9 - Sleep disorder, unspecified Category: Medical (5) Anxiety, generalized: Code(s): F41.1 - Generalized anxiety disorder Category: Medical (6) Depression, major, recurrent, mild: Code(s): F33.0 - Major depressive disorder, recurrent, mild Category: Medical Plan History - The patient is a 70-year-old female with a history of diet-controlled diabetes, vitamin-D deficiency, constipation, anxiety/depression, lipid disorder, sleeping difficulty presenting with heel pain. - Onset: Gradual; current episode's duration not specified. - Location: Predominantly right heel, with lesser pain in the left heel. - Severity: Pain described as severe enough to cause difficulty in walking. - Quality: Feels like walking on bone. - Aggravating Factors: Weight-bearing and prolonged standing. - Alleviating Factors: Application of lidocaine cream and use of pain relief medication such as Aleve. Orthotics used but reported minimal relief. - Previous Interventions: No prior imaging studies conducted. - Additional Symptoms: No reports of nausea, vomiting, or systemic symptoms. - Visual changes following cataract surgery. - Current Status: Achieving 20/20 vision but requires reading glasses. - No mention of offering advanced lenses at the time of surgery. Medical History: - Diabetes Mellitus - Recent urinary tract infection - Hyperlipidemia - Depression - No previous mention of heel spur Surgical History: - Cataract surgery (specifics regarding laterality and time were not provided) Medications: - Paroxetine 40 mg, indicated for depression - Simvastatin 40 mg, indicated for hyperlipidemia - Trazodone 50 mg, to sleep at night - Aleve and lidocaine cream for heel pain management - Colace for constipation Social History: - Recently turned 70, indicating a milestone in her life. - Family status includes being the mother of a daughter who recently became . Family History: - Mention of daughter's struggles with infertility but recently had a spontaneous . Diagnostic Results: - Labs from October indicating A1c of 6.8 Problem List - Heel Pain right more than left - Diabetes Mellitus diet-controlled - Hyperlipidemia - Recent history of Urinary Tract Infection - Depression Patient Instructions - Proceed to have laboratory work completed today. - Consider use of orthotics for heel support, pending x-ray results and further treatment. - Monitor blood sugar as per diabetic management plan. - Follow up with any changes in vision or other health concerns.
== END 2025-04-26 11:36 | disposition home or self-care (01) ==
LOC: HO.HMCC 11:18
PROVIDERS: PCP Internal Medicine; Visit Provider Internal Medicine
DX: M79.671 Pain in right foot (principal); E11.9 Type 2 diabetes mellitus without complications; E78.9 Disorder of lipoprotein metabolism, unspecified; G47.9 Sleep disorder, unspecified; F41.1 Generalized anxiety disorder; F33.0 Major depressive disorder, recurrent, mild

== ENCOUNTER 2025-04-26 11:38 | Outpatient (REF) | payer MEDICARE, SELFPAY ==
--- NOTE | ~2025-04-26 | XR_ITS ---
EXAMINATION: XR FOOT, RIGHT CLINICAL INFORMATION: M79.671 - Pain in right foot COMPARISON: None available. TECHNIQUE: AP, lateral, and oblique views of the right foot. FINDINGS: No fracture, dislocation, or suspicious bone lesion. Normal alignment. Normal plantar arch. There are moderate-sized plantar and small dorsal calcaneal spurs. No soft tissue abnormality. XR/XR foot RT min 3V IMPRESSION: No acute findings in the right foot. Electronically signed by: Israel Alonso MD 04/26/2025 12:22 PM EDT
[2025-04-26 13:23] LABS: MANUAL DIFF FLAG NO
[2025-04-26 13:25] LABS: Basophils Percent Auto 0.4 % (0-2); Eosinophils Absolute Auto 0.1 X10*3/uL (0.0-0.4); Hematocrit 39.9 % (37.0-47.0); Hemoglobin 13.1 g/dl (12.0-16.0); Imm Gran Abs Auto 0.02 X10*3/uL (0.00-0.03); Imm Gran Pct Auto 0.4 % (0.0-0.4); Lymphocytes Absolute Auto 1.3 X10*3/uL (1.2-4.9); Lymphocytes Percent Auto 27.5 % (20-40); Mean Corpuscular HGB Conc 32.8 g/dl (31.0-35.0); Mean Corpuscular Hemoglobin 29.7 pg (27.0-33.0); Mean Corpuscular Volume 90.5 fL (80.0-98.0); Mean Platelet Volume 10.8 fL (9.4-12.3); Monocytes Absolute Auto 0.4 X10*3/uL (0.1-1.2); Monocytes Percent Auto 7.9 % (2-11); Neutrophils Percent Auto 62.8 % (45-73); Platelet Count 182 X10*3/uL (160-400); Red Blood Count 4.41 X10*6/uL (4.20-5.50); Red Cell Distribution Width 12.6 % (11.0-16.0); White Blood Count 4.8 X10*3/uL (4.8-10.8)
[2025-04-26 13:37] LABS: Estimated Average Glucose 154 mg/dL
[2025-04-26 13:49] LABS: Alanine Aminotransferase 20 U/L (0-31); Alkaline Phosphatase 81 U/L (39-117); Anion Gap 9 (12-20); Aspartate Amino Transferase 20 U/L (5-31); Bilirubin Total 0.8 mg/dL (0.0-1.0); Blood Urea Nitrogen 17 mg/dL (9-16); Carbon Dioxide 30 mmol/L (22-29); Chloride 107 mmol/L (96-108); Estimated Glomerular Filt Rate > 60; Glucose Random 156 mg/dL (60-115); Potassium 4.1 mmol/L (3.3-5.1); Sodium 142 mmol/L (135-145); Total Protein 6.2 g/dL (6.5-8.0)
[2025-04-26 14:04] LABS: TSH reflex Free T4 1.44 uIU/mL (0.32-4.0)
[2025-04-26 14:19] LABS: Creatinine Urine 54.42 mg/dL; Microalbumin Urine < 5.0 mg/L
[2025-04-27 12:49] LABS: LDL Cholesterol Direct 94 mg/dL (<100)
== END 2025-04-26 11:39 | disposition home or self-care (01) ==
LOC: HO.HMGCX 11:38
PROVIDERS: PCP Internal Medicine; Visit Provider Internal Medicine
DX: M79.671 Pain in right foot (principal); E11.9 Type 2 diabetes mellitus without complications; E78.9 Disorder of lipoprotein metabolism, unspecified; G47.9 Sleep disorder, unspecified; F41.1 Generalized anxiety disorder; F33.0 Major depressive disorder, recurrent, mild; Z79.899 Other long term (current) drug therapy; Z13.31 Encounter for screening for depression; Z00.01 Encounter for general adult medical examination with abnormal findings
CPT/HCPCS: 36415; 73630; 80053; 82043; 82570; 83036; 83721; 84443; 85025; 96127; 99212

== ENCOUNTER → 2025-04-26 11:49 | Outpatient (BNV) | payer MEDICARE, SELFPAY | PROVIDERS: PCP Internal Medicine; Visit Provider Radiology Diagnostic Radiology | DX: M79.671 Pain in right foot (principal) | CPT/HCPCS: 73630 ==

== ENCOUNTER 2025-05-04 08:40 | Outpatient (AMB) | payer MEDICARE, SELFPAY ==
--- NOTE | 2025-05-04 08:44 | MHC.PC.OV ---
Intake Visit Reasons: lab result review Allergies No Known Allergies Allergy (Verified 04/26/25 11:22) Medication List - Last Reconciled 05/04/25 by Any Jaffe MD cholecalciferol (vitamin D3) 25 mcg PO DAILY 90 days docusate sodium (Colace) 100 mg PO DAILY ibuprofen 200 mg PO Q6H PRN lactobacillus combination no.4 (Probiotic) 1 capsule PO daily; administer with a meal 30 days paroxetine HCl 40 mg PO DAILY simvastatin 40 mg PO BEDTIME trazodone 50 mg PO BEDTIME PRN Tobacco use date assessed: 04/26/25 Dental Screening Dental Screen Date: 04/26/25 HPI lab result review HPI Details History - The patient is a 70-year-old female presenting with foot pain and hyperglycemia. - Foot pain: The patient reports persistent soreness in both heels, with the right heel being more affected than the left. - The pain has been ongoing since the last visit and was initially treated with inserts, but the discomfort persists. - An x-ray was performed, which did not reveal any acute findings. - Hyperglycemia: The patient's recent lab results indicate worsening blood sugar levels, with a hemoglobin A1c of 7.0%. - The patient is aware of the condition and has a glucose monitor to check fasting sugar levels. - The patient is currently on simvastatin for lipid control and has been advised to start a new medication for hyperglycemia. Problem List - Foot pain - Hyperglycemia - Preventative care: Lipid control with simvastatin Patient Instructions - Start the prescribed medication Metformin for hyperglycemia and monitor fasting blood sugar levels daily. - Schedule an appointment with a patient financial services specialist for persistent heel pain. - Continue taking simvastatin as prescribed for lipid control. - Follow up in July for a repeat hemoglobin A1c test. Review of Systems - General: No fever no chills - Neurological: No headaches no dizziness - Ear nose throat: No sore throat no hearing difficulty no ear pain - Cardiovascular: No syncope, no chest pain, no palpitations - Gastrointestinal: No nausea vomiting or diarrhea - Endocrine: No polyuria polydipsia no heat intolerance - Genitourinary: No dysuria , no blood in urine [facility] Medical History Cataract Diverticulosis Tubular adenoma Polycystic kidney disease IBS (irritable bowel syndrome) Breast calcifications Type II diabetes mellitus Insomnia Asthma Depression with anxiety Surgical History Hx of colonoscopy Hx of colonoscopy Family History Father Liver cancer Heart problem Mother Lung cancer Brother Heart problem Diabetes Cardiovascular system problem Substance use disorder Mental health disorder Sister Diabetes Substance use disorder Brother Substance use disorder Social History Household Members: Children Housing: Apartment Are you a primary medicare sales executive to a significant other at home: No Do you presently have visiting nurse or other home services: No Alcohol intake: never Comment: Tylenol PO given Patient Tobacco Use Status: Former Tobacco user Years Smoked: 15 yrs e-Cigarette/Vaping Use: Never Used Second Hand Smoke Exposure: No service: No Current occupational status: retired Sexual orientation: Straight/Heterosexual Gender identity: Female Cognitive needs: No Hearing needs: No Vision needs: Yes Questionnaire Thrive Questionnaire Date Thrive assessed: 04/26/25 I am a: Patient What is your living situation today?: I have a steady place to live Within the past 12 months, did the food you bought not last and you didn't have the money to get more?: Never true Within the past 12 months, did you worry whether your food would run out before you got money to buy more?: Never true Do you have trouble paying for medicines?: No Do you have trouble getting transportation to medical appointments?: No Do you have trouble paying your heating and electricity bill?: No Do you have trouble taking care of your child, family member or friend?: Yes Do you have trouble with day-to-day activities such as bathing, preparing meals, shopping, managing finances, etc.?: No Are you currently unemployed and looking for a job?: No Are you interested in more education?: No Please select the resources that you would like help with: None Currently or been in a relationship where the following occur: No concerns reported THRIVE Score: 0 KATHY-7 AMB Questionnaire KATHY-7 Date KATHY - 7 assessed: 05/27/24 Source: Developed by Drs. Theo Navas, Marla Brooks, Abdi Kruse and colleagues, with an educational dave from [employer]. Physical exam (Primary Care) Tobacco/Smoking Status: Tobacco use Status Tobacco use date assessed 04/26/25 05/04/25 08:44 Patient Tobacco Use Status Former Tobacco user 05/04/25 08:44 e-Cigarette/Vaping Use Never Used 05/04/25 08:44 Thrive Assessment: Date of Thrive Assessment Date Thrive assessed 04/26/25 05/04/25 08:44 Currently or been in a relationship where the following occur: No concerns reported Telehealth Telehealth Telehealth Platform: [employer] Location of provider rendering services: practice address Location of patient: address on file Patient Identification confirmed using: Name, : Yes Telehealth method: video Patient verbally consented to treatment: Yes Patient verbally consented to billing insurance company: Yes Patient informed of any privacy concerns related to visit: Yes Minutes spent on Phone/Video with Pt.: 13 Coding Level of Care Code Tele Est Pt Level 3 (60767) Diagnoses Diabetes mellitus type 2 in nonobese E11.9 Assessment & Plan Assessment & Plan (1) Diabetes mellitus type 2 in nonobese: Code(s): E11.9 - Type 2 diabetes mellitus without complications Category: Medical Plan History - The patient is a 70-year-old female presenting with foot pain and hyperglycemia. - Foot pain: The patient reports persistent soreness in both heels, with the right heel being more affected than the left. - The pain has been ongoing since the last visit and was initially treated with inserts, but the discomfort persists. - An x-ray was performed, which did not reveal any acute findings. - Hyperglycemia: The patient's recent lab results indicate worsening blood sugar levels, with a hemoglobin A1c of 7.0%. - The patient is aware of the condition and has a glucose monitor to check fasting sugar levels. - The patient is currently on simvastatin for lipid control and has been advised to start a new medication for hyperglycemia. Problem List - Foot pain - Hyperglycemia - Preventative care: Lipid control with simvastatin Patient Instructions - Start the prescribed medication Metformin 500 mg qd for hyperglycemia and monitor fasting blood sugar levels daily. - Schedule an appointment with a patient financial services specialist for persistent heel pain. - Continue taking simvastatin as prescribed for lipid control. - Follow up in July for a repeat hemoglobin A1c test. Orders: Referrals Podiatry Referral M79.671 - Pain in right foot Medications: New metformin 500 mg PO DAILY 90 tabs 0RF
== END 2025-05-04 09:04 | disposition home or self-care (01) ==
LOC: HO.HMCC 08:41
PROVIDERS: PCP Internal Medicine; Visit Provider Internal Medicine
DX: E11.9 Type 2 diabetes mellitus without complications (principal)

== ENCOUNTER → 2025-05-04 08:40 | Outpatient (BNVA) | payer MEDICARE, SELFPAY | PROVIDERS: PCP Internal Medicine; Visit Provider Internal Medicine | DX: Z13.89 Encounter for screening for other disorder (principal) ==

== ENCOUNTER 2025-08-08 11:06 | Outpatient (AMB) | payer MEDICARE, SELFPAY ==
--- NOTE | 2025-08-08 11:12 | A.OFFPC_ITS ---
Vital Signs 08/08/25 11:15 Height 5 ft Weight 126 lb BMI 24.6 BP 120/70 Blood Pressure Location Lt brachial Position Sitting Pulse 60 Pulse Source Pulse Oximeter Pulse Oximetry (%) 97 Intake Visit Reasons: 3 month follow up Allergies No Known Allergies Allergy (Verified 08/08/25 11:15) Medication List - Last Reconciled 08/08/25 by Any Jaffe MD cholecalciferol (vitamin D3) 25 mcg PO DAILY 90 days docusate sodium (Colace) 100 mg PO DAILY ibuprofen 200 mg PO Q6H PRN lactobacillus combination no.4 (Probiotic) 1 capsule PO daily; administer with a meal 30 days metformin 500 mg PO DAILY paroxetine HCl 40 mg PO DAILY simvastatin 40 mg PO BEDTIME trazodone 50 mg PO BEDTIME PRN Tobacco use date assessed: 04/26/25 Fall risk assessment: No Falls in past year Last assessed Fall Risk: 08/08/25 Dental Screening Dental Screen Date: 04/26/25 HPI 3 month follow up HPI Details History of Present Illness The patient is a 70-year-old female presenting with follow-up for diabetes management and complaint of ear congestion and runny nose. Diabetes Mellitus: - The patient reports having her Hemoglo bin A1c checked three months ago, which was 7.0%., today 6.2 - She monitors her glucose levels at [facility], with fasting readings generally around 130 mg/dL and not exceeding 200 mg/dL. - No recent changes in urinary frequency were noted, though she reported long- standing increased urination. . Ear Congestion and Runny Nose: - The patient reports bilateral ear shilo estion and persistent runny nose which has been occurring constantly throughout the day. - The occurrence of snoring was also not ed, potentially due to nasal congestion. - Presence of ear wax was confirmed. Medical History: - Type 2 Diabetes Mellitus - Depression - Hyperlipidemia - Insomnia Medications: - Vitamin D - Metformin 500 mg for diabetes manageme nt - Paroxetine 40 mg for depression - Simvastatin 40 mg for hyperlipidemia - Trazodone 50 mg for insomnia Diagnostic Results: - Labs: - Hemoglobin A1c: 7.0% (three mo nths ago) - Complete blood count: Normal - Electrolytes: Normal - Kidney functions: Normal - Cholesterol: 102 mg/dL - Thyroid function: Normal Problem List - Type 2 Diabetes Mellitus - Ear Congestion and Runny Nose - depression - right foot pain has appointment with p odiatrist - excessive ear wax - lipid disorder - insomnia Plan 1. Type 2 Diabetes Mellitus - Continue current dosing of Metformin 5 00 mg. - Encourage continued monitoring of bloo d glucose levels at home. 2. Ear Congestion And Runny Nose - Recommended ear cleaning due to ear wa x buildup. - Prescribed a nasal spray for night usa ge to alleviate nasal congestion. Flonase - Continue taking Metformin as prescribe d. Your hemoglobin A1c is 6.2 today - Monitor your blood sugar levels regula rly at home. - Use the nasal spray at night as direct ed to help with runny nose symptoms. - both ears flushed with good result - Get your blood test done before the ne xt appointment. Review of Systems - Ears/Nose/Throat: Reports bilateral ea r congestion, runny nose, and snoring. Denies known allergies. - Endocrine: Denies changes to urination frequency. 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: Alert awake oriented x3 motor intact Skin: Normal turgor PFSH Medical History Cataract Diverticulosis Tubular adenoma Polycystic kidney disease IBS (irritable bowel syndrome) Breast calcifications Type II diabetes mellitus Insomnia Asthma Depression with anxiety Surgical History Hx of colonoscopy Hx of colonoscopy Family History Father Liver cancer Heart problem Mother Lung cancer Brother Heart problem Diabetes Cardiovascular system problem Substance use disorder Mental health disorder Sister Diabetes Substance use disorder Brother Substance use disorder Social History Household Members: Children Housing: Apartment Are you a primary career technical supervisor to a significant other at home: No Do you presently have visiting nurse or other home services: No Alcohol intake: never Comment: Tylenol PO given Patient Tobacco Use Status: Former Tobacco user Years Smoked: 15 yrs e-Cigarette/Vaping Use: Never Used Second Hand Smoke Exposure: No service: No Current occupational status: retired Sexual orientation: Straight/Heterosexual Gender identity: Female Cognitive needs: No Hearing needs: No Vision needs: Yes Questionnaire Thrive Questionnaire Date Thrive assessed: 04/26/25 I am a: Patient What is your living situation today?: I have a steady place to live Within the past 12 months, did the food you bought not last and you didn't have the money to get more?: Never true Within the past 12 months, did you worry whether your food would run out before you got money to buy more?: Never true Do you have trouble paying for medicines?: No Do you have trouble getting transportation to medical appointments?: No Do you have trouble paying your heating and electricity bill?: No Do you have trouble taking care of your child, family member or friend?: Yes Do you have trouble with day-to-day activities such as bathing, preparing meals, shopping, managing finances, etc.?: No Are you currently unemployed and looking for a job?: No Are you interested in more education?: No Please select the resources that you would like help with: None Currently or been in a relationship where the following occur: No concerns reported THRIVE Score: 0 KATHY-7 AMB Questionnaire KATHY-7 Date KATHY - 7 assessed: 05/27/24 Source: Developed by Drs. Theo Navas, Marla Brooks, Abdi Kruse and colleagues, with an educational dave from [email or web address]. Physical exam (Primary Care) Vital Signs: Last Vital Signs Pulse 60 08/08/25 11:15 BP 120/70 08/08/25 11:15 Pulse Ox 97 08/08/25 11:15 BMI result Body Mass Index 24.6 Tobacco/Smoking Status: Tobacco use Status Tobacco use date assessed 04/26/25 08/08/25 11:12 Patient Tobacco Use Status Former Tobacco user 08/08/25 11:12 e-Cigarette/Vaping Use Never Used 08/08/25 11:12 Thrive Assessment: Date of Thrive Assessment Date Thrive assessed 04/26/25 08/08/25 11:12 Currently or been in a relationship where the following occur: No concerns reported Office Procedures Cerumen Removal From which ear canal was the cerumen removed: bilateral Removal: irrigation Notes: patient tolerated procedure well, no complications and ear canal clear [id number] Irrigation/Lavage Results AMB Hemoglobin A1c AMB Hemoglobin A1c 6.3 % Last Edit by Vernon Madrigal CMA on 08/08/25 11: 58 Results Reviewed Results Reviewed: Laboratory Last Values Hgb A1c (Clinic) 6.3 % (4.0-6.0) H 08/08/25 11:19 Coding Level of Care Code Est Pt Level 5 (81294) Diagnoses Diabetes mellitus type 2 in nonobese E11.9 Lipid disorder E78.9 Difficulty sleeping G47.9 Anxiety, generalized F41.1 Depression, major, recurrent, mild F33.0 Excessive cerumen in both ear canals H61.23 Nasal congestion R09.81 CPT Codes Office Procedure - CPT: 74777-Mrw Irrigation/Lavage ([id number]) Time Spent (min) 40 Comment Chart review/labs/A1c/vcmt-ds-saay/ear irrigation/coordination Assessment & Plan Assessment & Plan (1) Diabetes mellitus type 2 in nonobese: Code(s): E11.9 - Type 2 diabetes mellitus without complications Category: Medical (2) Lipid disorder: Code(s): E78.9 - Disorder of lipoprotein metabolism, unspecified Category: Medical (3) Difficulty sleeping: Code(s): G47.9 - Sleep disorder, unspecified Category: Medical (4) Anxiety, generalized: Code(s): F41.1 - Generalized anxiety disorder Category: Medical (5) Depression, major, recurrent, mild: Code(s): F33.0 - Major depressive disorder, recurrent, mild Category: Medical (6) Excessive cerumen in both ear canals: Code(s): H61.23 - Impacted cerumen, bilateral Category: Medical (7) Nasal congestion: Code(s): R09.81 - Nasal congestion Category: Medical Plan History of Present Illness The patient is a 70-year-old female presenting with follow-up for diabetes m anagement and complaint of ear congestion and runny nose. Diabetes Mellitus: - The patient reports having her Hemoglobin A1c checked three months ago, which was 7.0%., today 6.2 - She monitors her glucose levels at home, with fasting readings generally around 130 mg/dL and not exceeding 200 mg/dL. - No recent changes in urinary frequency were noted, though she reported long- standing increased urination. . Ear Congestion and Runny Nose: - The patient reports bilateral ear congestion and persistent runny nose which has been occurring constantly throughout the day. - The occurrence of snoring was also noted, potentially due to nasal congestion. - Presence of ear wax was confirmed. Medical History: - Type 2 Diabetes Mellitus - Depression - Hyperlipidemia - Insomnia Medications: - Vitamin D - Metformin 500 mg for diabetes management - Paroxetine 40 mg for depression - Simvastatin 40 mg for hyperlipidemia - Trazodone 50 mg for insomnia Diagnostic Results: - Labs: - Hemoglobin A1c: 7.0% (three months ago) - Complete blood count: Normal - Electrolytes: Normal - Kidney functions: Normal - Cholesterol: 102 mg/dL - Thyroid function: Normal Problem List - Type 2 Diabetes Mellitus - Ear Congestion and Runny Nose - depression - right foot pain has appointment with belt tender - excessive ear wax - lipid disorder - insomnia Plan 1. Type 2 Diabetes Mellitus - Continue current dosing of Metformin 500 mg. - Encourage continued monitoring of blood glucose levels at home. 2. Ear Congestion And Runny Nose - Recommended ear cleaning due to ear wax buildup. - Prescribed a nasal spray for night usage to alleviate nasal congestion. Flonase - Continue taking Metformin as prescribed. Your hemoglobin A1c is 6.2 today - Monitor your blood sugar levels regularly at home. - Use the nasal spray at night as directed to help with runny nose symptoms. - both ears flushed with good result - Get your blood test done before the next appointment. Orders: Orders AMB Hemoglobin A1c Today Z13.9 - Encounter for screening, unspecified Medications: New fluticasone propionate 50 mcg/actuation (Flonase Allergy Relief) administer into each nostril 1 spray intranasal DAILY 16 grams 0RF Nasal congestion 30 days
[2025-08-08 11:15] VITALS: BP 120/70; PULSE 60; O2SAT 97; BMI 24.6
== END 2025-08-08 12:21 | disposition home or self-care (01) ==
LOC: HO.HMCC 11:07
PROVIDERS: PCP Internal Medicine; Visit Provider Internal Medicine
DX: E11.9 Type 2 diabetes mellitus without complications (principal); E78.9 Disorder of lipoprotein metabolism, unspecified; G47.9 Sleep disorder, unspecified; F41.1 Generalized anxiety disorder; F33.0 Major depressive disorder, recurrent, mild; H61.23 Impacted cerumen, bilateral; R09.81 Nasal congestion; Z13.9 Encounter for screening, unspecified

== ENCOUNTER → 2025-08-08 11:06 | Outpatient (BNVA) | payer MEDICARE, SELFPAY | PROVIDERS: PCP Internal Medicine; Visit Provider Internal Medicine | DX: H61.23 Impacted cerumen, bilateral (principal); E11.9 Type 2 diabetes mellitus without complications; R09.89 Other specified symptoms and signs involving the circulatory and respiratory systems; E78.9 Disorder of lipoprotein metabolism, unspecified; F41.1 Generalized anxiety disorder; F33.0 Major depressive disorder, recurrent, mild; R09.81 Nasal congestion | CPT/HCPCS: 69209; 83036; 99212 ==

== ENCOUNTER 2025-09-27 14:02 | Outpatient (REF) | payer MEDICARE, SELFPAY ==
--- OUTSIDE RECORDS SUMMARY | 2025-09-28 02:18 | XMS_ITS | Patient Health Record ---
[facility] [place] Address [address] [place] [address] Care Team Providers Care Medical Planner Name Role Phone Ld DILLON[facility] Provider Mere Peraza Unavailable [phone] Allergies No Known Allergies Results Component Value Reference Range Notes HEMOGLOBIN A1C (GLYCOHEMOGLO BIN) Reviewed date:08/08/2025 01:10:57 PM Interpretation: Performing Lab: Notes/Report: HEMOGLOBIN A1C % (HH) 6.2 HEMOGLOBIN A1C (GLYCOHEMOGLO BIN) Reviewed date:09/22/2025 10:34:23 AM Interpretation: Performing Lab: Notes/Report: HEMOGLOBIN A1C % (HH) 6.2 Reason For Referral No Information Medications Medication SIG (Take, Route, Fr equency, Duration) Notes Start Date End Date Status PARoxetine HCl 40 MG 1 tablet in the mor vannessa Orally Once a day Active Simvastatin 40 MG 1 tablet in the even ing Orally Once a day Active traZODone HCl 50 MG 1 tablet at bedtime as needed Orally Once a day Active Vitamin D3 Complete Active metFORMIN HCl 500 MG 1 tablet with a arjun l Orally Once a day Active Immunizations Vaccine Route Administration Date Status Comme nts Influenza Unknown 08/08/2025 Administered Social History Tobacco Use: Social History Observation Description Date Details (start date - stop date) Never Smoker NA - NA Tobacco use other than smoking: Question Answer Notes Are you an other tobacco user? No Tobacco Control (Standard) Question Answer Notes Tobacco use: Nonsmoker Additional Findings: Tobacco non-user Current no nsmoker AUDIT-C (Standard) Question Answer Notes Did you have a drink contain ing alcohol in the past year? Yes How often did you have a dri nk containing alcohol in the past year? Monthly or less (1 point) How many drinks did you have on a typical day when you were drinking in the past year? Declined to specify (0 point) How often did you have six o r more drinks on one occasion in the past year? Declined to specify (0 point) Points 1 Interpretation Negative Problems Problem Type SNOMED Code ICD Code Onset Dates Problem Status W/U Status Risk Notes Problem Plantar fasciitis of right foot ([id number] 01) Plantar fasciitis of right foot (M72.2) Active confirmed Problem Interstitial myositis ([id number]) Interstitial myositis of right foot (M60.171) Active confirmed Vital Signs Blood pressure diastolic 78 mm Hg 08/08/2025 Height 5ft in 09/22/2025 Blood pressure systolic 120 mm Hg 08/08/2025 Weight 125 lbs 09/22/2025 BMI 24.41 kg/m2 09/22/2025 Encounters Encounter Location Date Provider Diagnosis [address] [address] 08/08/2025 Mere Argueta Pain in right foot M79.671 ; Plantar fasciitis of right foot M72.2 ; Calcaneal spur, right foot M77.31 ; Interstitial myositis of right foot M60.171 and Bursitis of right foot M77.[address] [address] 09/22/2025 Mere Argueta Pain in right foot M79.671 ; Plantar fasciitis of right foot M72.2 ; Calcaneal spur, right foot M77.31 ; Interstitial myositis of right foot M60.171 and Bursitis of right foot M77.[address] [address] 08/08/2025 Mere Argueta Assessments Encounter Date Diagnosis (ICD Code) Assessment Notes Treatment Notes Treatment Clinical Notes Section Notes 08/08/2025 Pain in right foot (ICD-10 - M79.671) 08/08/2025 Plantar fasciitis of right foot (ICD-10 - M72.2) Patient Educated with: HEEL CORD [email or web address].pdf (HEEL CORD STRETCHES.pdf) Patient Educated with: RICE THERAPY.pdf (RICE THERAPY.pdf) 09/22/2025 Pain in right foot (ICD-10 - M79.671) 09/22/2025 Plantar fasciitis of right foot (ICD-10 - M72.2) Patient Educated with: HEEL CORD STRETCHES.pdf (HEEL CORD STRETCHES.pdf) Patient Educated with: RICE THERAPY.pdf (RICE THERAPY.pdf) 09/22/2025 Calcaneal spur, right foot (ICD-10 - M77.31) 08/08/2025 Calcaneal spur, right foot (ICD-10 - M77.31) 08/08/2025 Interstitial myositis of right foot (ICD-10 - M60.171) 09/22/2025 Interstitial myositis of right foot (ICD-10 - M60.171) 08/08/2025 Bursitis of right foot (ICD-10 - M77.51) 09/22/2025 Bursitis of right foot (ICD-10 - M77.51) Plan Of Treatment Pending Test Test Name Order Date X ray : Foot, right 3V 08/08/2025 Insurance Providers Payer Name Payer Address Payer Phone Subscriber Number Group Number Insured Name Patient Relationship to Insured Coverage Start Date Coverage End Date [facility] 65 Medicare Preferred [address] [place] [address] [id number] Ginger Garcia Self - patient is the insured Medical (General) History Medical History History ICD Code CAD (Cholesterol) Cataracts Chicken pox covid-19 Depression Diabetes mellitus Mumps Surgical History Surgery Date(Month/Year) cataract surgery 02/15/2025
== END 2025-09-27 14:03 | disposition home or self-care (01) ==
LOC: HO.MAMMO 14:02
PROVIDERS: PCP Internal Medicine; Visit Provider Internal Medicine
DX: Z13.89 Encounter for screening for other disorder (principal)

== ENCOUNTER 2025-10-16 11:21 | Outpatient (REF) | payer MEDICARE, SELFPAY ==
--- NOTE | ~2025-10-16 | XR_ITS ---
EXAMINATION: XR CHEST 2 VIEWS HISTORY: R05.9 - Cough, unspecified COMPARISON: Comparison is made with the prior examination dated 12/23/2019. FINDINGS: PA and lateral views of the chest are submitted. The lungs are expanded and clear. There is no pleural effusion, pneumothorax, or pulmonary vascular congestion. The heart is normal in size. There is degenerative disc disease of the spine. XR/XR chest 2V IMPRESSION: No acute cardiopulmonary abnormality. Electronically signed by: Theo Graham MD 10/16/2025 01:21 PM GERARD
== END 2025-10-16 11:22 | disposition home or self-care (01) ==
LOC: HO.HMGCX 11:21
PROVIDERS: PCP Internal Medicine; Visit Provider Physician Assistant Medical
DX: J06.9 Acute upper respiratory infection, unspecified (principal); R05.9 Cough, unspecified; R09.81 Nasal congestion; Z87.891 Personal history of nicotine dependence
CPT/HCPCS: 71046; 87637; 99212

== ENCOUNTER 2025-10-16 11:21 | Outpatient (AMB) | payer MEDICARE, SELFPAY ==
[2025-10-16 11:44] VITALS: BP 118/60; PULSE 113; TEMP 37.5; O2SAT 96; BMI 24.2
--- NOTE | 2025-10-16 11:44 | AM.OFFWIN_ITS ---
Intake Vital Signs 10/16/25 11:44 Height 5 ft Weight 124 lb BMI 24.2 BP 118/60 Blood Pressure Location Lt brachial Position Sitting Pulse 113 H Pulse Source Pulse Oximeter Temp 99.5 F Temp Source Oral Pulse Oximetry (%) 96 Oxygen Delivery Method Room Air Intake Visit Reasons: EP body aches sinus pain coughing Intake Note: Patient presents c/o sinus congestion/pressure, chest congestion/pressure, body aches x2 days. Patient states she vomited once yesterday. Patient Tobacco Use Status: Former Tobacco user Allergies No Known Allergies Allergy (Verified 10/16/25 11:48) HPI HPI Comments History of Present Illness Details History - The patient is a 70 year old female pr esenting with ear pain, sore throat, chest congestion, body aches, and difficulty breathing. - Her symptoms began a couple of days ag o as a cold and have progressively worsened. - Associated symptoms include inability to eat or drink, which has prevented her from taking her daily medications. - She has tried yjuv-rou-uvdvuro cold an d flu medications without relief. - She vomited once yesterday morning and it was mainly phlegm. - She does not report coughing anything up. - She reported a fever of 99.9?F yesterd ay and has a temperature of 99?F today. - Her son had a cold and recovered, afte r which she became progressively sicker. - Her medical history is negative for as thma or COPD. - She has received her flu shot for the year. - She denies CP, abd pain, nausea, diarr hea, or recent travel. Physical Exam General: Cooperative, healthy appearing, comfortable and no acute distress Orientation/consciousness: Patient oriented x3 Limitations: No limitations Head: Normal to inspection Ears: Hearing grossly normal bilaterally, external ears normal and TM's normal bilaterally Nose: Normal external nose present, normal nares present, and no nasal discharge present. Face and sinus: Sinuses nontender to palpation. Mouth: Normal oral and palatal mucosa present and moist mucous membranes noted. Throat: Tonsils normal. Uvula is midline. Posterior oropharynx with erythema and no exudates. Eyes: Appearance normal, both eyes and all related structures Neck: Normal visual inspection, full ROM. No lymphadenopathy noted. Respiratory: Clear to auscultation bilaterally. Normal respiratory effort, able to speak in complete sentences. No respiratory distress, not tachypneic, no tripod positioning and no use of accessory muscles. Cardiovascular: Regular rate and rhythm. Normal S1 and S2 Skin: No rashes or lesions noted Patient was informed and verbally consented to the use of an ambient scribe for clinic note documentation during this visit [facility] Medical History Cataract Diverticulosis Tubular adenoma Polycystic kidney disease IBS (irritable bowel syndrome) Breast calcifications Type II diabetes mellitus Insomnia Asthma Depression with anxiety Surgical History Hx of colonoscopy Hx of colonoscopy Family History Father Liver cancer Heart problem Mother Lung cancer Brother Heart problem Diabetes Cardiovascular system problem Substance use disorder Mental health disorder Sister Diabetes Substance use disorder Brother Substance use disorder Social History Household Members: Children Housing: Apartment Are you a primary healthcare applications analyst to a significant other at home: No Do you presently have visiting nurse or other home services: No Alcohol intake: never Comment: Tylenol PO given Patient Tobacco Use Status: Former Tobacco user Years Smoked: 15 yrs e-Cigarette/Vaping Use: Never Used Second Hand Smoke Exposure: No service: No Current occupational status: retired Sexual orientation: Straight/Heterosexual Gender identity: Female Cognitive needs: No Hearing needs: No Vision needs: Yes Review of Systems Const All systems reviewed & are unremarkable except as noted in HPI and below Physical Exam Vital Signs: Last Vital Signs Temp 99.5 F 10/16/25 11:44 Pulse 113 H 10/16/25 11:44 BP 118/60 10/16/25 11:44 Pulse Ox 96 10/16/25 11:44 Oxygen Delivery Method Room Air 10/16/25 11:44 BMI result Body Mass Index 24.2 Assessment & Plan Assessment & Plan (1) URI with cough and congestion: Code(s): J06.9 - Acute upper respiratory infection, unspecified Plan Most likely Acute Upper Respiratory Infection vs flu vs covid vs RSV vs pneumonia plan - A chest X-ray will be obtained to rule out pneumonia. - A respiratory panel for COVID-19, influenza, and RSV will be performed. - Medications will be sent for symptomatic relief. - The patient will be contacted via phone with the results of both the chest X- ray and the respiratory panel swab. - The patient was advised to proceed to the adjacent facility for the chest X- ray immediately Orders: Orders XR chest 2V Today R05.9 - Cough, unspecified Medications: New cetirizine-pseudoephedrine 5-120 mg ER 1 tab PO BID 14 tabs 0RF 7 days benzonatate 100 mg PO bid-tid PRN 21 caps 0RF Cough 7 days Coding Level of Care Code Est Pt Level 4 (13794) Diagnoses URI with cough and congestion J06.9
== END 2025-10-16 12:47 | disposition home or self-care (01) ==
PROVIDERS: PCP Internal Medicine; Visit Provider Physician Assistant Medical
DX: J06.9 Acute upper respiratory infection, unspecified (principal)

== ENCOUNTER → 2025-10-16 13:02 | Outpatient (BNV) | payer MEDICARE, SELFPAY | PROVIDERS: PCP Internal Medicine; Visit Provider Radiology Diagnostic Radiology | DX: R05.9 Cough, unspecified (principal) | CPT/HCPCS: 71046 ==

== ENCOUNTER 2025-11-07 13:37 | Outpatient (AMB) | payer MEDICARE, SELFPAY ==
[2025-11-07 13:40] VITALS: BP 126/78; PULSE 81; O2SAT 95; BMI 24.8
--- NOTE | 2025-11-07 13:40 | A.OFFPC_ITS ---
Vital Signs 11/07/25 13:40 Height 5 ft Weight 127 lb BMI 24.8 BP 126/78 Blood Pressure Location Lt brachial Position Sitting Pulse 81 Pulse Source Pulse Oximeter Pulse Oximetry (%) 95 Oxygen Delivery Method Room Air Intake Visit Reasons: Annual PE Allergies No Known Allergies Allergy (Verified 11/07/25 13:45) Medication List - Last Reconciled 11/07/25 by Any Jaffe MD cetirizine-pseudoephedrine 5-120 mg ER 1 tab PO BID 7 days cholecalciferol (vitamin D3) 25 mcg PO DAILY 90 days docusate sodium (Colace) 100 mg PO DAILY fluticasone propionate 50 mcg/actuation (Flonase Allergy Relief) 1 spray intranasal DAILY 30 days ibuprofen 200 mg PO Q6H PRN lactobacillus combination no.4 (Probiotic) 1 capsule PO daily; administer with a meal 30 days metformin 500 mg PO DAILY paroxetine HCl 40 mg PO DAILY simvastatin 40 mg PO BEDTIME trazodone 50 mg PO BEDTIME PRN Tobacco use date assessed: 04/26/25 Fall risk assessment: No Falls in past year Last assessed Fall Risk: 11/07/25 Dental Screening Dental Screen Date: 11/07/25 Did you have a dental visit in the last 12 months?: No Did you have a dental problem in the last 6 months where you did not have access to dental care?: No Was dental information given to patient?: Patient has dentist HPI HPI Comments History of Present Illness Details History of Present Illness The patient is a 70 year old female presenting for a physical examination. COVID-19 Infection: - The patient was diagnosed with COVID-1 9 in October, around the 8th of the month. - She reports persistent fatigue, exhaus tion, nasal congestion, and brain fog since the diagnosis. - She has noted bloody nasal discharge w hen blowing her nose but denies cough or shortness of breath. Type 2 Diabetes Mellitus: - The patient manages her type 2 diabete s with metformin 500 mg and diet. - Her hemoglobin A1c was 6.3% in er. - Her last comprehensive labs, including kidney and liver function, were in April and were stable. Hyperlipidemia: - She takes simvastatin 40 mg for lipid control. Asthma: - She has a history of asthma and is rep ortedly doing well without the use of inhalers. Chronic Constipation: - The patient reports being constipated all the time and notes that interventions have not been very helpful. - She tried Colace, which was not effect bonnie. Weakness: - The patient reports some weakness in h er legs, which she describes as not major. - She has an upcoming neurology appointm ent in December to address this. Health Maintenance: - The patient's preventive care is gener ally up to date. - Her last mammogram was in September of last year; a more recent attempt was deferred due to pain and needs to be rescheduled. - Her last colonoscopy was in October 10. - Her last PLATFORM MATERIAL HANDLER MANAGER visit was in July of last , with an upcoming appointment on November 16. Medical History: - Type 2 diabetes mellitus - Asthma - Allergic rhinitis - Hyperlipidemia - Insomnia - Recent COVID-19 infection in October 2023 - Chronic constipation Social History: - Nutrition: The patient reports she tri es to eat well and was advised to increase fruit and vegetable intake. - Supplements: She stopped taking a mult ivitamin because it made her feel sick. Health Maintenance - Last mammogram was in September of the previous year. - A recent mammogram appointment was not completed due to patient-reported pain and needs to be rescheduled. - Last colonoscopy was in October 2023. - Last PLATFORM [employer]ERIAL HANDLER MANAGER visit was in July of the previous year. - Breast exam is conducted by her PLATFORM MATERIAL HANDLER MANAGER . - Lab work is due every six months, with the last full set completed in April. [place] of Care - The patient has an upcoming [employer]ATFORM MATERIAL HANDLER MANAGER jose ointment on November 16. - The patient has an upcoming neurology appointment in December. Medications - Vitamin D supplement - Flonase nasal spray for allergic rhini tis - Metformin 500 mg for type 2 diabetes - Simvastatin 40 mg for hyperlipidemia - Trazodone 50 mg for sleep - Paroxetine, for mood PFSH Medical History Cataract Diverticulosis Tubular adenoma Polycystic kidney disease IBS (irritable bowel syndrome) Breast calcifications Type II diabetes mellitus Insomnia Asthma Depression with anxiety Surgical History Hx of colonoscopy Hx of colonoscopy Family History Father Liver cancer Heart problem Mother Lung cancer Brother Heart problem Diabetes Cardiovascular system problem Substance use disorder Mental health disorder Sister Diabetes Substance use disorder Brother Substance use disorder Social History Household Members: Children Housing: Apartment Are you a primary pediatric acute care unit nurse to a significant other at home: No Do you presently have visiting nurse or other home services: No Alcohol intake: never Comment: Tylenol PO given Patient Tobacco Use Status: Former Tobacco user Years Smoked: 15 yrs e-Cigarette/Vaping Use: Never Used Second Hand Smoke Exposure: No service: No Current occupational status: retired Sexual orientation: Straight/Heterosexual Gender identity: Female Cognitive needs: No Hearing needs: No Vision needs: Yes Questionnaire PHQ-9 Over the last 2 weeks, how often have you been bothered by any of the following problems? 1. Little interest or pleasure in doing things: not at all 2. Feeling down, depressed, or hopeless: not at all 3. Trouble falling or staying asleep, or sleeping too much: not at all 4. Feeling tired or having little energy: several days 5. Poor appetite or overeating: not at all 6. Feeling bad about yourself - or that you are a failure or have let yourself or your family down: not at all 7. Trouble concentrating on things, such as reading the newspaper or watching television: not at all 8. Moving or speaking so slowly that other people could have noticed. Or the opposite - being so fidgety or restless that you have been moving around a lot more than usual: not at all 9. Thoughts that you would be better off or of hurting yourself in some way: not at all Total score: 1 Depression Screening Interpretation: Negative Depression Screening Done: Yes 99196 - PHQ-9 Billing: Yes Source: Developed by Drs. Theo Navas, Marla Brooks, Abdi Kruse and colleagues, with an educational dave from [employer]. Thrive Questionnaire Date Thrive assessed: 11/07/25 I am a: Patient What is your living situation today?: I have a steady place to live Within the past 12 months, did the food you bought not last and you didn't have the money to get more?: Never true Within the past 12 months, did you worry whether your food would run out before you got money to buy more?: Never true Do you have trouble paying for medicines?: No Do you have trouble getting transportation to medical appointments?: No Do you have trouble paying your heating and electricity bill?: No Do you have trouble taking care of your child, family member or friend?: Yes Do you have trouble with day-to-day activities such as bathing, preparing meals, shopping, managing finances, etc.?: No Are you currently unemployed and looking for a job?: No Are you interested in more education?: No Please select the resources that you would like help with: None Currently or been in a relationship where the following occur: No concerns reported THRIVE Score: 0 AUDIT C Alcohol Use Questionnaire (AUDIT-C) 1. How often do you have a drink containing alcohol?: Monthly or less 2. How many drinks containing alcohol do you have on a typical day when you are drinking?: 1 or 2 3. How often do you have six or more drinks on one occasion?: Never Total Score: 1 Score Reviewed/Action Taken: Yes KATHY-7 AMB Questionnaire KATHY-7 Date KATHY - 7 assessed: 11/07/25 Feeling nervous, anxious, or on edge: 0 = Not at all Not being able to stop or control worryin = Not at all Worrying too much about different things: 0 = Not at all Trouble relaxin = Not at all Being so restless that it is hard to sit still: 0 = Not at all Becoming easily annoyed or irritable: 0 = Not at all Feeling afraid as if something awful might happen: 0 = Not at all Total KATHY-7 score (0-4 normal; 5-9 mild; 10-14 moderate; 15-21 severe): 0 Source: Developed by Drs. Theo Navas, Marla Brooks, Abdi Kruse and colleagues, with an educational dave from [employer]. KATHY-7 Assessment Billing KATHY-7 Assessment Tool: KATHY-7 Assessment 47257 Review of Systems Narrative Review of Systems - General: No fever no chills - Neurological: No headaches no dizziness - Ear nose throat: No sore throat no hearing difficulty no ear pain - Cardiovascular: No syncope, no chest pain, no palpitations - Gastrointestinal: No nausea vomiting or diarrhea - Endocrine: No polyuria polydipsia no heat intolerance - Genitourinary: No dysuria - Skin: No new complaints Physical exam (Primary Care) Vital Signs: Last Vital Signs Pulse 81 11/07/25 13:40 BP 126/78 11/07/25 13:40 Pulse Ox 95 11/07/25 13:40 Oxygen Delivery Method Room Air 11/07/25 13:40 BMI result Body Mass Index 24.8 Tobacco/Smoking Status: Tobacco use Status Tobacco use date assessed 04/26/25 11/07/25 13:40 Patient Tobacco Use Status Former Tobacco user 11/07/25 13:40 e-Cigarette/Vaping Use Never Used 11/07/25 13:40 PHQ-9: PHQ-9 Score PHQ-9: Total score 1 11/07/25 13:46 Depression Screening Interpretation: Negative Thrive Assessment: Date of Thrive Assessment Date Thrive assessed 11/07/25 11/07/25 13:46 Currently or been in a relationship where the following occur: No concerns reported Narrative Diagnostic results - Labs (April): CBC, electrolytes, kidney functions, and thyroid were all within normal limits. - Labs (July): Hemoglobin A1c was 6.3%. - Colonoscopy (October 2023): Completed. - Mammogram (September of last year): Completed. Physical Exam General: Cooperative, healthy appearing, comfortable, no acute distress Orientation: Patient oriented x3 Head: Normal to inspection Ears: Within normal limit visually Nose: Normal external nose present, but patient reports congestion and bloody discharge Face and sinus: Normal facial exam Eyes: Appearance normal, extraocular movement intact pupils reactive Neck: Normal visual inspection and supple Respiratory: Normal respiratory effort and able to speak in complete sentences. Clear to auscultation, no stridor, but patient reports feeling congested Cardiovascular: S1 and S2 RRR GI: Normal to inspection. Soft to palpation, nontender, but patient reports pressure and constipation Skin: Turgor normal, no acute findings Neuro: Patient oriented x3, motor sensory intact, balance intact, tandem pass, but patient reports brain fog Extremities: Normal to inspection . Coding Level of Care Code Est Pt Level 3 (19602) Est Pt Prev Care >65y(15685) Diagnoses Encounter for general adult medical examination with abnormal findings Z00.01 Diabetes mellitus type 2 in nonobese E11.9 Lipid disorder E78.9 Depression, major, recurrent, mild F33.0 Anxiety, generalized F41.1 Difficulty sleeping G47.9 Nasal congestion R09.81 History of COVID-19 Z86.16 Additional Codes KATHY-7 Assessment Billing - KATHY-7 Assessment Tool: KATHY-7 Assessment 04707 ([id number]) PHQ-9 - 93450 - PHQ-9 Billing: Yes ([id number]) Assessment & Plan Assessment & Plan (1) Encounter for general adult medical examination with abnormal findings: Code(s): Z00.01 - Encounter for general adult medical examination with abnormal findings Category: Medical (2) Diabetes mellitus type 2 in nonobese: Code(s): E11.9 - Type 2 diabetes mellitus without complications Category: Medical (3) Lipid disorder: Code(s): E78.9 - Disorder of lipoprotein metabolism, unspecified Category: Medical (4) Depression, major, recurrent, mild: Code(s): F33.0 - Major depressive disorder, recurrent, mild Category: Medical (5) Anxiety, generalized: Code(s): F41.1 - Generalized anxiety disorder Category: Medical (6) Difficulty sleeping: Code(s): G47.9 - Sleep disorder, unspecified Category: Medical (7) Nasal congestion: Code(s): R09.81 - Nasal congestion Category: Medical (8) History of COVID-19: Code(s): Z86.16 - Personal history of COVID-19 Category: Medical Plan Patient Instructions - You will need to come back for a fasting blood test to check your cholesterol, kidney function, and liver enzymes. - Continue to rest and allow your body to recover from COVID-19. Give it another two weeks. - Perform breathing exercises to help keep your lungs strong. - Maintain a healthy diet with plenty of fruits and vegetables. You can stop taking multivitamins if they make you feel sick. - For constipation, you can try an iobd-wot-wvmxycq laxative called Senokot S - Your upcoming PLATFORM [employer] HANDLER MANAGER appointment is on November 16 at 9:30 AM. - You have a neurology appointment scheduled for December. - Please follow up in the office in about four months. Orders: Orders Comprehensive [place]. Panel Fast Today E11.9 - Type 2 diabetes mellitus without complications, E78.9 - Disorder of lipoprotein metabolism, unspecified, F33.0 - Major depressive disorder, recurrent, mild, F41.1 - Generalized anxiety disorder, Z00.01 - Encounter for general adult medical examination with abnormal findings, Z12.11 - Encounter for screening for malignant neoplasm of colon Lipid Panel Today E11.9 - Type 2 diabetes mellitus without complications, E78.9 - Disorder of lipoprotein metabolism, unspecified, F33.0 - Major depressive disorder, recurrent, mild, F41.1 - Generalized anxiety disorder, Z00.01 - Encounter for general adult medical examination with abnormal findings, Z12.11 - Encounter for screening for malignant neoplasm of colon Vitamin B12 Today E11.9 - Type 2 diabetes mellitus without complications, E78.9 - Disorder of lipoprotein metabolism, unspecified, F33.0 - Major depressive disorder, recurrent, mild, F41.1 - Generalized anxiety disorder, Z00.01 - Encounter for general adult medical examination with abnormal findings, Z12.11 - Encounter for screening for malignant neoplasm of colon Magnesium Today E11.9 - Type 2 diabetes mellitus without complications, E78.9 - Disorder of lipoprotein metabolism, unspecified, F33.0 - Major depressive disorder, recurrent, mild, F41.1 - Generalized anxiety disorder, Z00.01 - Encounter for general adult medical examination with abnormal findings, Z12.11 - Encounter for screening for malignant neoplasm of colon Hemoglobin A1c Today E11.9 - Type 2 diabetes mellitus without complications, E78.9 - Disorder of lipoprotein metabolism, unspecified, F33.0 - Major depressive disorder, recurrent, mild, F41.1 - Generalized anxiety disorder, Z00.01 - Encounter for general adult medical examination with abnormal findings, Z12.11 - Encounter for screening for malignant neoplasm of colon Microalbumin, Random (w Creat) Today E11.9 - Type 2 diabetes mellitus without complications, E78.9 - Disorder of lipoprotein metabolism, unspecified, F33.0 - Major depressive disorder, recurrent, mild, F41.1 - Generalized anxiety disorder, Z00.01 - Encounter for general adult medical examination with abnormal findings, Z12.11 - Encounter for screening for malignant neoplasm of colon MM tomosynthesis screening BI Today Z12.31 - Encounter for screening mammogram for malignant neoplasm of breast Complete Blood Count Auto Diff Today E11.9 - Type 2 diabetes mellitus without complications, E78.9 - Disorder of lipoprotein metabolism, unspecified, F33.0 - Major depressive disorder, recurrent, mild, F41.1 - Generalized anxiety disorder, Z00.01 - Encounter for general adult medical examination with abnormal findings, Z12.11 - Encounter for screening for malignant neoplasm of colon Vitamin D 25-OH (D2 and D3) Today E11.9 - Type 2 diabetes mellitus without complications, E78.9 - Disorder of lipoprotein metabolism, unspecified, F33.0 - Major depressive disorder, recurrent, mild, F41.1 - Generalized anxiety disorder, Z00.01 - Encounter for general adult medical examination with abnormal findings, Z12.11 - Encounter for screening for malignant neoplasm of colon
--- OUTSIDE RECORDS SUMMARY | 2025-11-07 17:31 | XMS_ITS | Patient Health Record ---
[facility] [place] Address [address] [place] [address] Care Team Providers Care Boiler Tenders Supervisor Name Role Phone Ld DILLON, [facility] Primary [facility] Provider Mere Peraza Unavailable [phone] Allergies No Known Allergies Results Component Value [...] Notes Problem Plantar fasciitis of right foot ([id number]) Plantar fasciitis of right foot (M72.2) Active confirmed Problem Interstitial myositis ([id number]) Interstitial myositis of right foot (M60.171) Active confirmed Vital Signs Blood pressure diastolic 78 mm Hg 08/08/2025 Height 5ft in 09/22/2025 Blood pressure systolic 120 mm Hg 08/08/2025 Weight 125 lbs 09/22/2025 BMI 24.41 kg/m2 09/22/2025 Encounters Encounter Location Date Provider Diagnosis [address] [address] 08/08/2025 Mere Argueta Pain in right foot M79.671 ; Plantar fasciitis of right foot M72.2 ; Calcaneal spur, right foot M77.31 ; Interstitial myositis of right foot M60.171 and Bursitis of right foot M77.[address] [address] 09/22/2025 Mere Argueta Pain in right foot M79.671 ; Plantar fasciitis of right foot M72.2 ; Calcaneal spur, right foot M77.31 ; Interstitial myositis of right foot M60.171 and Bursitis of right foot M77.[address] [address] 08/08/2025 Mere Argueta Assessments Encounter Date Diagnosis [...] Insured Coverage Start Date Coverage End Date [facility] 65 Medicare Preferred [address] [place] [address] [id number] Ginger Garcia Self - patient is the insured Medical (General) History Medical History History ICD Code CAD (Cholesterol) Cataracts Chicken pox covid-19 Depression Diabetes mellitus Mumps Surgical History Surgery Date(Month/Year) cataract surgery 02/15/2025
== END 2025-11-07 14:03 | disposition home or self-care (01) ==
LOC: HO.HMCC 13:38
PROVIDERS: PCP Internal Medicine; Visit Provider Internal Medicine
DX: Z00.01 Encounter for general adult medical examination with abnormal findings (principal); E11.9 Type 2 diabetes mellitus without complications; E78.9 Disorder of lipoprotein metabolism, unspecified; F33.0 Major depressive disorder, recurrent, mild; F41.1 Generalized anxiety disorder; G47.9 Sleep disorder, unspecified; R09.81 Nasal congestion; Z86.16 Personal history of COVID-19

== ENCOUNTER → 2025-11-07 13:37 | Outpatient (BNVA) | payer MEDICARE, SELFPAY | PROVIDERS: PCP Internal Medicine; Visit Provider Internal Medicine | DX: Z00.01 Encounter for general adult medical examination with abnormal findings (principal); E11.9 Type 2 diabetes mellitus without complications; E78.9 Disorder of lipoprotein metabolism, unspecified; F33.0 Major depressive disorder, recurrent, mild; F41.1 Generalized anxiety disorder; G47.9 Sleep disorder, unspecified; R09.81 Nasal congestion; Z86.19 Personal history of other infectious and parasitic diseases | CPT/HCPCS: 96127; 99212; 99397 ==